=== PATIENT | male | born 1945 | race Caucasian/White ===

== ENCOUNTER 2020-08-04 11:38 | Emergency (ER) | payer MEDICARE, MEDICAID, SELFPAY ==
[2020-08-04] VITALS (7 sets, daily range): BP systolic 113–198; BP diastolic 58–88; PULSE 80–118; RESP 16–22; TEMP 36.4–37.3; O2SAT 95–99; BMI 29.7
--- NOTE | ~2020-08-04 | XR_ITS ---
EXAMINATION: XR CHEST CLINICAL INFORMATION: Infection COMPARISON: None TECHNIQUE: 2 views of the chest were obtained. FINDINGS: The lungs are hyperexpanded and clear of acute process. Heart size and pulmonary vascularity is normal. There is spondylosis dorsal spine. No lytic process. XR/XR chest 2V IMPRESSION: Hyperinflated lungs without acute process.
--- NOTE | 2020-08-04 12:21 | ECG_ITS ---
Test Reason : ABNORMAL LAB Blood Pressure : / mmHG Vent. Rate : 112 BPM Atrial Rate : 112 BPM P-R Int : 168 ms QRS Dur : 094 ms QT Int : 326 ms P-R-T Axes : 014 033 029 degrees QTc Int : 444 ms Sinus tachycardia with frequent Premature ventricular complexes Nonspecific ST abnormality Abnormal ECG No previous ECGs available Referred By: Rashida Chanel Electronically Signed By:BILL DUKES MD
--- NOTE | 2020-08-04 12:23 | ED.GENADULT ---
HPI - General Adult General Chief complaint: Dental/Oral Stated complaint: MOUTH SORES Time Seen by Provider: 08/04/20 11:52 Source: patient and family (Daughter Brandy translated) Mode of arrival: ambulatory Limitations: language barrier (Speaks Sierra Leonean) History of Present Illness HPI narrative: Patient is a 75-year-old [place] speaking male with a past medical history of diabetes, hypertension who presents with 2 days of multiple issues. First, his daughter states he has a rash on bilateral lower extremities, his nose is also been bleeding and he has black spots around his mouth, to use black spots on his tongue and on his mucosa, both sides. Patient denies being on a blood thinner and is a nonsmoker. Patient denies any new medications or new foods. Patient states the rash is not itchy or painful, he also denies pain or itchiness of the mouth sores. They do not scrape off. Patient denies fevers, chest pain or shortness of breath. Patient received his 2nd COVID vaccination 2 weeks ago. Related Data Home Medications Medication Instructions Recorded Confirmed amlodipine 1 tab PO DAILY 08/04/20 08/04/20 diclofenac sodium TOPICAL 08/04/20 gabapentin 1 cap PO BID 08/04/20 08/04/20 glipizide 5 mg PO DAILY 08/04/20 08/04/20 hydrochlorothiazide 1 cap PO DAILY 08/04/20 08/04/20 levothyroxine 1 tab PO DAILY 08/04/20 08/04/20 lisinopril 1 tab PO DAILY 08/04/20 08/04/20 metformin 2 tab PO BID 08/04/20 08/04/20 nitroglycerin mg SUBLINGUAL 08/04/20 pregabalin 50 mg PO BEDTIME 08/04/20 08/04/20 simvastatin 1 tab PO BEDTIME 08/04/20 08/04/20 Allergies Allergy/AdvReac Type Severity Reaction Status Date / Time No Known Allergies Allergy Verified 08/04/20 11:55 Review of Systems Review of Systems: Yes all other systems are reviewed and are negative [facility] Past Medical History Medical History (Updated 08/04/20 @ 12:50 by Juve Esteves) Atherosclerotic heart disease [place] coronary artery w/angina pectoris Diabetic neuropathy Hypercholesteremia Hypertension Hypothyroidism Insulin dependent diabetes mellitus Social History Social History Smoking Status: Never smoker Use of substances other than those prescribed or required for medical reasons: No Advance Directives: No Advance Directives Information Provided: Yes Physical Exam Vital Signs: Vital Signs: Last Vital Signs Temp 98.2 F 08/04/20 16:27 Pulse 103 H 08/04/20 16:27 Resp 18 08/04/20 16:27 BP 146/66 H 08/04/20 16:27 Pulse Ox 96 08/04/20 15:39 Body Mass Index 29.7 Const: General: cooperative, healthy appearing, comfortable and no acute distress Nutritional Appearance: average body habitus Orientation/consciousness: patient oriented x3 Limitations: language barrier (Speaks [place]) HENMT: Head: Yes normal to inspection, Yes No palpable skull fracture present, Yes normocephalic and Yes atraumatic Ears: hearing grossly normal bilaterally General nose exam: Normal external nose present, Normal nares present and Epistaxis present bilaterally dried blood present and active bleeding (only when he blows his nose, brb) Face and sinus: No normal facial exam (Patient has 5-6 black, flat areas periorbital) Mouth: Abnormal oral and palatal mucosa present hematoma (black-maroon circular areas) of the left buccal mucosa and of the right buccal mucosa Mouth/tongue images: 1. Black round spot, not actively bleeding 2. Black/red round spot, not actively bleeding Throat: Yes posterior oropharynx normal and Yes uvula midline Eyes: General: appearance normal, both eyes and all related structures Pupils: Equal, round and reactive pupils present EOM: EOMs intact bilaterally Resp: Effort & Inspection: normal respiratory effort and able to speak in complete sentences Auscultation: clear to auscultation bilaterally Cardio: Rate: tachycardic Rhythm: regular rhythm GI: Inspection: Yes normal to inspection Palpation (GI): Soft to palpation and nontender Neuro: General: patient oriented x3 Cranial nerves: Yes Equal, round and reactive pupils present Extrem: Other: Bilateral lower extremities petechial rash Course Course Course Narrative: Patient is a 75-year-old [place]an speaking male with a past medical history of diabetes, hypertension who presents with 2 days of multiple issues. First, his daughter states he has a rash on bilateral lower extremities, his nose is also been bleeding and he has black spots around his mouth, to use black spots on his tongue and on his mucosa, both sides. Vital signs reveal hypertensive at 198/88, tachycardic at 118BPM, respirations are 16, O2 sat is 99% on room air and temperature is 97.6 degrees. Physical exam remarkable for bilateral lower extremity petechia, epistaxis, several black/erythematous spots on periorbital area, tongue and oral mucosa. Had Dr. Motta examine patient, he agreed with the assessment and plan. Will get workup to rule out malignancy verses infection, DIC, vasculitis, multiple myeloma, leukemia and get EKG an COVID test as patient will likely be admitted. Reevaluation(s) Reevaluation #1: Patient's platelet count less than 2, will transfuse, explained to patient with his daughter risks and benefits of the platelet transfusion and patient signed for consent. Will also will redraw CBC for accuracy. Lactic acid 4.7, not giving antibiotics bc I don't believe this is sepsis. Time: 14:12 Reevaluation #2: Text to hospitalist to request admission and text to heme Onc for guidance. Time: 14:42 Reevaluation #3: Hospitalist will review, concern for continued bleeding of the nose, will patient need ENT, advised that patient is not actively bleeding, he has blood when he blows his nose. Spoke with Dr. Delacruz, she will add some labs to the patient's current blood work and come see patient in the ED. Time: 16:15 Additional Reevaluation(s): Dr. Vazquez advised patient is too high risk to keep in this hospital and he needs to go where they have any ENT service. As patient is a patient at [facility] for his primary care, I called [facility] for transfer. Spoke with Dr. Pollock at [facility], she will speak with her ?hub ?and call me back with likely okay to transfer. She did recommend giving the patient a dose of steroids but she said to check with Dr. Delacruz on the exact dosing. I texted Dr. Delacruz. 4:42pm Dr. Delacruz recommended 40 mg Decadron x5 days, will discontinue the Solu-Medrol, patient did not receive the Solu-Medrol yet. Medical Decision Making Lab Data Result diagrams: 08/04/20 14:17 08/04/20 13:15 Labs: Lab Results 0408/04/20 08/04/20 Range/Units 12:53 13:15 13:15 WBC 11.7 H (4.8-10.8) X10*3/uL RBC 3.91 L (4.60-5.80) X10*6/uL Hgb 12.8 L (14.0-18.0) g/dl Hct 37.1 L (42-52) % MCV 94.9 (80-98) fL MCH 32.7 (27.0-33.0) pg MCHC 34.5 (31.0-36.0) g/dl RDW 14.1 (11.0-16.0) % Plt Count < 2 L* (160-400) X10*3/uL MPV Not Reportable Immature Gran % (Auto) 0.7 H (0.0-0.4) % Neut % (Auto) 78.6 H (45-73) % Lymph % (Auto) 11.3 L (20-40) % Trigg % (Auto) 8.2 (2-11) % Eos % (Auto) 0.9 (0-4) % Baso % (Auto) 0.3 (0-2) % Lymph # (Auto) 1.3 (1.2-4.9) X10*3/uL Trigg # (Auto) 1.0 (0.1-1.2) X10*3/uL Eos # (Auto) 0.1 (0.0-0.4) X10*3/uL Baso # (Auto) 0.0 (0.0-0.2) X10*3/uL Abs Immat Gran (auto) 0.08 H (0.00-0.03) X10*3/uL Absolute Neuts (auto) 9.2 H (2.0-8.3) X10*3/uL Absolute Nucleated RBC 0.000 (0.0-0.012) X10*3/uL Nucleated RBC % (auto) 0.0 (0.0-0.2) /100WBC Neutrophils % (Manual) (45-73) % Band Neutrophils % (3-5) % Lymphocytes % (Manual) (20-40) % Monocytes % (Manual) (2-11) % Eosinophils % (Manual) (0-4) % Abs Neuts (Manual) (2.2-7.9) X10*3/uL Lymphocytes # (Manual) (0.6-4.8) X10*3/uL Monocytes # (Manual) (0.0-1.2) X10*3/uL Eosinophils # (Manual) (0.0-0.8) X10*3/UL Platelet Estimate Plt Morphology Comment RBC Morphology Smear Tech's Comments VERIFIED Smear Path Review SEE NOTE ESR 9 (0-15) MM/HR Absolute Retic (0.026-0.095) X10*6/uL Percent Retic (0.5-1.8) % Immature Retic Fraction (2.3-13.4) % Retic Hgb Equivalent (30.0-35.0) pg PT (10.8-13.0) SEC INR (0.9-1.1) APTT (24.1-38.0) SEC Fibrinogen (259-690) MG/DL D-Dimer NG/ML Sodium (135-145) mmol/L Potassium (3.3-5.1) mmol/L Chloride (96-108) mmol/L Carbon Dioxide (22-29) mmol/L Anion Gap (12-20) BUN (9-16) mg/dL Creatinine (0.5-1.4) mg/dL Estim Creat Clear Calc Estimated GFR Random Glucose (60-115) mg/dL Lactic Acid (0.5-2.0) mmol/L Lactic Acid Fup @ 2Hr (0.5-2.0) mmol/L Calcium (8.4-10.2) mg/dL Total Bilirubin (0.0-1.0) mg/dL AST (5-37) U/L ALT (0-40) U/L Alkaline Phosphatase (39-117) U/L Lactate Dehydrogenase (118-273) U/L C-Reactive Protein (< or = 0.50) mg/dL Total Protein (6.5-8.0) g/dL Albumin (3.5-5.0) g/dL Urine Color YELLOW Urine Appearance CLEAR Urine pH 5.5 (5.0-8.0) Ur Specific [place]rop 1.025 (1.005-1.025) Urine Protein NEG (NEG-TRACE) MG/DL Urine Glucose (UA) 500 H (NEG) MG/DL Urine Ketones NEG (NEG) MG/DL Urine Blood 3+ H (NEG) Urine Nitrite NEG (NEG) Ur Leukocyte Esterase NEG (NEG) Urine RBC 15-29 H (0) /HPF Urine WBC 0 (0-4) /HPF Ur Squamous Epith Cells TRACE /LPF Urine Bacteria NONE /LPF Urine Mucus TRACE /LPF COVID-19 (MELVIN) (Negative) COVID-19 Clin Com Blood Type Antibody Screen Direct Antiglob Test MARTIN, Polyspecific 08/04/20 08/04/20 08/04/20 Range/Units 13:15 13:15 13:15 WBC (4.8-10.8) X10*3/uL RBC (4.60-5.80) X10*6/uL Hgb (14.0-18.0) g/dl Hct (42-52) % MCV (80-98) fL MCH (27.0-33.0) pg MCHC (31.0-36.0) g/dl RDW (11.0-16.0) % Plt Count (160-400) X10*3/uL MPV Immature Gran % (Auto) (0.0-0.4) % Neut % (Auto) (45-73) % Lymph % (Auto) (20-40) % Trigg % (Auto) (2-11) % Eos % (Auto) (0-4) % Baso % (Auto) (0-2) % Lymph # (Auto) (1.2-4.9) X10*3/uL Trigg # (Auto) (0.1-1.2) X10*3/uL Eos # (Auto) (0.0-0.4) X10*3/uL Baso # (Auto) (0.0-0.2) X10*3/uL Abs Immat Gran (auto) (0.00-0.03) X10*3/uL Absolute Neuts (auto) (2.0-8.3) X10*3/uL Absolute Nucleated RBC (0.0-0.012) X10*3/uL Nucleated RBC % (auto) (0.0-0.2) /100WBC Neutrophils % (Manual) (45-73) % Band Neutrophils % (3-5) % Lymphocytes % (Manual) (20-40) % Monocytes % (Manual) (2-11) % Eosinophils % (Manual) (0-4) % Abs Neuts (Manual) (2.2-7.9) X10*3/uL Lymphocytes # (Manual) (0.6-4.8) X10*3/uL Monocytes # (Manual) (0.0-1.2) X10*3/uL Eosinophils # (Manual) (0.0-0.8) X10*3/UL Platelet Estimate Plt Morphology Comment RBC Morphology Smear Tech's Comments Smear Path Review ESR (0-15) MM/HR Absolute Retic (0.026-0.095) X10*6/uL Percent Retic (0.5-1.8) % Immature Retic Fraction (2.3-13.4) % Retic Hgb Equivalent (30.0-35.0) pg PT 13.3 H (10.8-13.0) SEC INR 1.1 (0.9-1.1) APTT 34.4 (24.1-38.0) SEC Fibrinogen 421 (259-690) MG/DL D-Dimer 214 NG/ML Sodium 137 (135-145) mmol/L Potassium 4.6 (3.3-5.1) mmol/L Chloride 102 (96-108) mmol/L Carbon Dioxide 21 L (22-29) mmol/L Anion Gap 19 (12-20) BUN 37 H (9-16) mg/dL Creatinine 1.06 (0.5-1.4) mg/dL Estim Creat Clear Calc 62.1 Estimated GFR > 60 Random Glucose 300 H (60-115) mg/dL Lactic Acid 4.7 H* (0.5-2.0) mmol/L Lactic Acid Fup @ 2Hr (0.5-2.0) mmol/L Calcium 10.3 H (8.4-10.2) mg/dL Total Bilirubin 1.1 H (0.0-1.0) mg/dL AST 35 (5-37) U/L ALT 41 H (0-40) U/L Alkaline Phosphatase 180 H (39-117) U/L Lactate Dehydrogenase 249 (118-273) U/L C-Reactive Protein 0.29 (< or = 0.50) mg/dL Total Protein 7.3 (6.5-8.0) g/dL Albumin 4.5 (3.5-5.0) g/dL Urine Color Urine Appearance Urine pH (5.0-8.0) Ur Specific [place]rop (1.005-1.025) Urine Protein (NEG-TRACE) MG/DL Urine Glucose (UA) (NEG) MG/DL Urine Ketones (NEG) MG/DL Urine Blood (NEG) Urine Nitrite (NEG) Ur Leukocyte Esterase (NEG) Urine RBC (0) /HPF Urine WBC (0-4) /HPF Ur Squamous Epith Cells /LPF Urine Bacteria /LPF Urine Mucus /LPF COVID-19 (MELVIN) (Negative) COVID-19 Clin Com Blood Type Antibody Screen Direct Antiglob Test MARTIN, Polyspecific 08/04/20 08/04/20 08/04/20 Range/Units 13:16 14:17 14:17 WBC 10.6 (4.8-10.8) X10*3/uL RBC 3.52 L (4.60-5.80) X10*6/uL Hgb 11.5 L (14.0-18.0) g/dl Hct 33.3 L (42-52) % MCV 94.6 (80-98) fL MCH 32.7 (27.0-33.0) pg MCHC 34.5 (31.0-36.0) g/dl RDW 14.1 (11.0-16.0) % Plt Count < 2 L* (160-400) X10*3/uL MPV Not Reportable Immature Gran % (Auto) (0.0-0.4) % Neut % (Auto) (45-73) % Lymph % (Auto) (20-40) % Trigg % (Auto) (2-11) % Eos % (Auto) (0-4) % Baso % (Auto) (0-2) % Lymph # (Auto) (1.2-4.9) X10*3/uL Trigg # (Auto) (0.1-1.2) X10*3/uL Eos # (Auto) (0.0-0.4) X10*3/uL Baso # (Auto) (0.0-0.2) X10*3/uL Abs Immat Gran (auto) (0.00-0.03) X10*3/uL Absolute Neuts (auto) (2.0-8.3) X10*3/uL Absolute Nucleated RBC 0.000 (0.0-0.012) X10*3/uL Nucleated RBC % (auto) 0.0 (0.0-0.2) /100WBC Neutrophils % (Manual) 67 (45-73) % Band Neutrophils % 2 L (3-5) % Lymphocytes % (Manual) 21 (20-40) % Monocytes % (Manual) 9 (2-11) % Eosinophils % (Manual) 1 (0-4) % Abs Neuts (Manual) 7.3 (2.2-7.9) X10*3/uL Lymphocytes # (Manual) 2.2 (0.6-4.8) X10*3/uL Monocytes # (Manual) 1.0 (0.0-1.2) X10*3/uL Eosinophils # (Manual) 0.1 (0.0-0.8) X10*3/UL Platelet Estimate TNP Plt Morphology Comment TNP RBC Morphology NORMAL Smear Tech's Comments Smear Path Review ESR (0-15) MM/HR Absolute Retic 0.123 H (0.026-0.095) X10*6/uL Percent Retic 3.5 H (0.5-1.8) % Immature Retic Fraction 11.0 (2.3-13.4) % Retic Hgb Equivalent 37.1 H (30.0-35.0) pg PT (10.8-13.0) SEC INR (0.9-1.1) APTT (24.1-38.0) SEC Fibrinogen (259-690) MG/DL D-Dimer NG/ML Sodium (135-145) mmol/L Potassium (3.3-5.1) mmol/L Chloride (96-108) mmol/L Carbon Dioxide (22-29) mmol/L Anion Gap (12-20) BUN (9-16) mg/dL Creatinine (0.5-1.4) mg/dL Estim Creat Clear Calc Estimated GFR Random Glucose (60-115) mg/dL Lactic Acid (0.5-2.0) mmol/L Lactic Acid Fup @ 2Hr (0.5-2.0) mmol/L Calcium (8.4-10.2) mg/dL Total Bilirubin (0.0-1.0) mg/dL AST (5-37) U/L ALT (0-40) U/L Alkaline Phosphatase (39-117) U/L Lactate Dehydrogenase (118-273) U/L C-Reactive Protein (< or = 0.50) mg/dL Total Protein (6.5-8.0) g/dL Albumin (3.5-5.0) g/dL Urine Color Urine Appearance Urine pH (5.0-8.0) Ur Specific Northrop (1.005-1.025) Urine Protein (NEG-TRACE) MG/DL Urine Glucose (UA) (NEG) MG/DL Urine Ketones (NEG) MG/DL Urine Blood (NEG) Urine Nitrite (NEG) Ur Leukocyte Esterase (NEG) Urine RBC (0) /HPF Urine WBC (0-4) /HPF Ur Squamous Epith Cells /LPF Urine Bacteria /LPF Urine Mucus /LPF COVID-19 (MELVIN) Negative (Negative) COVID-19 Clin Com See Note Blood Type O Negative Antibody Screen NEGATIVE Direct Antiglob Test TNP MARTIN, Polyspecific NEGATIVE 08/04/20 Range/Units 15:44 WBC (4.8-10.8) X10*3/uL RBC (4.60-5.80) X10*6/uL Hgb (14.0-18.0) g/dl Hct (42-52) % MCV (80-98) fL MCH (27.0-33.0) pg MCHC (31.0-36.0) g/dl RDW (11.0-16.0) % Plt Count (160-400) X10*3/uL MPV Immature Gran % (Auto) (0.0-0.4) % Neut % (Auto) (45-73) % Lymph % (Auto) (20-40) % Trigg % (Auto) (2-11) % Eos % (Auto) (0-4) % Baso % (Auto) (0-2) % Lymph # (Auto) (1.2-4.9) X10*3/uL Trigg # (Auto) (0.1-1.2) X10*3/uL Eos # (Auto) (0.0-0.4) X10*3/uL Baso # (Auto) (0.0-0.2) X10*3/uL Abs Immat Gran (auto) (0.00-0.03) X10*3/uL Absolute Neuts (auto) (2.0-8.3) X10*3/uL Absolute Nucleated RBC (0.0-0.012) X10*3/uL Nucleated RBC % (auto) (0.0-0.2) /100WBC Neutrophils % (Manual) (45-73) % Band Neutrophils % (3-5) % Lymphocytes % (Manual) (20-40) % Monocytes % (Manual) (2-11) % Eosinophils % (Manual) (0-4) % Abs Neuts (Manual) (2.2-7.9) X10*3/uL Lymphocytes # (Manual) (0.6-4.8) X10*3/uL Monocytes # (Manual) (0.0-1.2) X10*3/uL Eosinophils # (Manual) (0.0-0.8) X10*3/UL Platelet Estimate Plt Morphology Comment RBC Morphology Smear Tech's Comments Smear Path Review ESR (0-15) MM/HR Absolute Retic (0.026-0.095) X10*6/uL Percent Retic (0.5-1.8) % Immature Retic Fraction (2.3-13.4) % Retic Hgb Equivalent (30.0-35.0) pg PT (10.8-13.0) SEC INR (0.9-1.1) APTT (24.1-38.0) SEC Fibrinogen (259-690) MG/DL D-Dimer NG/ML Sodium (135-145) mmol/L Potassium (3.3-5.1) mmol/L Chloride (96-108) mmol/L Carbon Dioxide (22-29) mmol/L Anion Gap (12-20) BUN (9-16) mg/dL Creatinine (0.5-1.4) mg/dL Estim Creat Clear Calc Estimated GFR Random Glucose (60-115) mg/dL Lactic Acid (0.5-2.0) mmol/L Lactic Acid Fup @ 2Hr 3.7 H* (0.5-2.0) mmol/L Calcium (8.4-10.2) mg/dL Total Bilirubin (0.0-1.0) mg/dL AST (5-37) U/L ALT (0-40) U/L Alkaline Phosphatase (39-117) U/L Lactate Dehydrogenase (118-273) U/L C-Reactive Protein (< or = 0.50) mg/dL Total Protein (6.5-8.0) g/dL Albumin (3.5-5.0) g/dL Urine Color Urine Appearance Urine pH (5.0-8.0) Ur Specific Northrop (1.005-1.025) Urine Protein (NEG-TRACE) MG/DL Urine Glucose (UA) (NEG) MG/DL Urine Ketones (NEG) MG/DL Urine Blood (NEG) Urine Nitrite (NEG) Ur Leukocyte Esterase (NEG) Urine RBC (0) /HPF Urine WBC (0-4) /HPF Ur Squamous Epith Cells /LPF Urine Bacteria /LPF Urine Mucus /LPF COVID-19 (MELVIN) (Negative) COVID-19 Clin Com Blood Type Antibody Screen Direct Antiglob Test MARTIN, Polyspecific ECG Data Attestation: I personally reviewed and interpreted this ECG as follows: Interpretation: Trigeminy, PVCs and no STEMI, tachycardic at 112BPM Discharge Plan Discharge Prescriptions: No Action metformin 500 mg tablet 2 tab PO BID RF: 0 levothyroxine 75 mcg tablet 1 tab PO DAILY RF: 0 amlodipine 10 mg tablet 1 tab PO DAILY RF: 0 simvastatin 20 mg tablet 1 tab PO BEDTIME RF: 0 lisinopril 10 mg tablet 1 tab PO DAILY RF: 0 hydrochlorothiazide 12.5 mg capsule 1 cap PO DAILY RF: 0 nitroglycerin 0.4 mg tablet, sublingual sublingual RF: 0 gabapentin 100 mg capsule 1 cap PO BID RF: 0 glipizide 5 mg tablet 5 mg PO DAILY RF: 0 pregabalin 50 mg capsule 50 mg PO BEDTIME RF: 0 diclofenac sodium 1 % gel topical RF: 0
[2020-08-04 13:00] LABS: Glucose Urine UA 500 MG/DL (NEG); Leukocyte Esterase Urine NEG (NEG); Nitrite Urine NEG (NEG); PH 5.5 (5.0-8.0); Specific Gravity - Urine 1.025 (1.005-1.025); Urine Blood 3+ (NEG); Urine Ketones NEG (NEG); Urine Protein NEG (NEG-TRACE)
[2020-08-04 13:01] LABS: Appearance Urine CLEAR; Color Urine YELLOW
[2020-08-04 13:08] LABS: Mucus Urine TRACE /LPF; Squamous Epithelial Cell Urine TRACE /LPF; WBC Urine 0 /HPF (0-4)
[2020-08-04 13:29] LABS: Basophils Percent Auto 0.3 % (0-2); Eosinophils Absolute Auto 0.1 X10*3/uL (0.0-0.4); Eosinophils Percent Auto 0.9 % (0-4); MANUAL DIFF FLAG SCAN; Mean Corpuscular Hemoglobin 32.7 pg (27.0-33.0); Monocytes Percent Auto 8.2 % (2-11); Neutrophils Percent Auto 78.6 % (45-73); Red Cell Distribution Width 14.1 % (11.0-16.0); SCAN SMEAR FLAG 1
[2020-08-04 13:30] LABS: Fibrinogen 421 MG/DL (259-690); INTERNATIONAL NORM RATIO 1.1 (0.9-1.1); Prothrombin Time 13.3 SEC (10.8-13.0)
[2020-08-04 13:31] LABS: Hematocrit 37.1 % (42-52); Hemoglobin 12.8 g/dl (14.0-18.0); Imm Gran Abs Auto 0.08 X10*3/uL (0.00-0.03); Imm Gran Pct Auto 0.7 % (0.0-0.4); Lymphocytes Absolute Auto 1.3 X10*3/uL (1.2-4.9); Lymphocytes Percent Auto 11.3 % (20-40); Mean Corpuscular HGB Conc 34.5 g/dl (31.0-36.0); Mean Corpuscular Volume 94.9 fL (80-98); Neutrophils Absolute Auto 9.2 X10*3/uL (2.0-8.3); Red Blood Count 3.91 X10*6/uL (4.60-5.80); White Blood Count 11.7 X10*3/uL (4.8-10.8)
[2020-08-04 13:33] LABS: D Dimer 214 NG/ML; Partial Thromboplastin Time 34.4 SEC (24.1-38.0)
[2020-08-04 13:41] LABS: PLT ABN DIST 1
[2020-08-04 13:51] LABS: COVID-19 Test Negative (Negative); IDNOW Serial# 9DD0AD1C
[2020-08-04 13:56] LABS: Platelet Count < 2 X10*3/uL (160-400)
[2020-08-04 13:59] LABS: Lactic Acid 4.7 mmol/L (0.5-2.0)
[2020-08-04 14:00] LABS: Alanine Aminotransferase 41 U/L (0-40); Albumin Level 4.5 g/dL (3.5-5.0); Alkaline Phosphatase 180 U/L (39-117); Anion Gap 19 (12-20); Aspartate Amino Transferase 35 U/L (5-37); Bilirubin Total 1.1 mg/dL (0.0-1.0); Blood Urea Nitrogen 37 mg/dL (9-16); C Reactive Protein 0.29 mg/dL (< or = 0.50); Calcium 10.3 mg/dL (8.4-10.2); Carbon Dioxide 21 mmol/L (22-29); Chloride 102 mmol/L (96-108); Creatinine Clr Calc Pharmacy 62.1; Estimated Glomerular Filt Rate > 60; Glucose Random 300 mg/dL (60-115); Potassium 4.6 mmol/L (3.3-5.1); Sodium 137 mmol/L (135-145); Total Protein 7.3 g/dL (6.5-8.0)
[2020-08-04 14:13] LABS: SLIDE REVIEW VERIFIED
[2020-08-04 14:20] LABS: Erythrocyte Sedimentation Rate 9 MM/HR (0-15)
[2020-08-04 14:28] LABS: Eos%MD 0.9 %; Hemoglobin 11.5 g/dl (14.0-18.0); Mean Corpuscular Hemoglobin 32.7 pg (27.0-33.0); Red Blood Count 3.52 X10*6/uL (4.60-5.80); Red Cell Distribution Width 14.1 % (11.0-16.0)
[2020-08-04 14:30] LABS: Baso%MD 0.4 %; Hematocrit 33.3 % (42-52); IG%MD 0.8 %; Lymph%MD 16.4 %; Mean Corpuscular HGB Conc 34.5 g/dl (31.0-36.0); Mean Corpuscular Volume 94.6 fL (80-98); Mono%MD 9.6 %; Neut%MD 71.9 %; White Blood Count 10.6 X10*3/uL (4.8-10.8)
[2020-08-04 14:32] LABS: PLT ABN DIST 1
[2020-08-04 14:46] LABS: Platelet Count < 2 X10*3/uL (160-400)
--- NOTE | 2020-08-04 14:57 | MHC.HEMONCMA ---
Patient came in for a consult of anal cancer, she is in alot of pain. She is here with her daughter for support. Cherelle was here for interpretation. Clinical summary was reviewed and updated. Patient had labs and will return in 10 days for a follow up. Patient was scheduled for Radiation Consult at [facility] for 08/13/2020 at 10am. 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 Ericka is working on getting auth for PET scan for the patient. A note was left on Melanie's desk for her to follow up with scheduling for Dr Mackay and to check on the PET scan status.
[2020-08-04 15:12] LABS: Lactate Dehydrogenase 249 U/L (118-273)
[2020-08-04 15:13] LABS: Band Neutrophils Percent 2 % (3-5); Eosinophils Absolute Manual 0.1 X10*3/UL (0.0-0.8); Eosinophils Percent Manual 1 % (0-4); Lymphocytes Absolute Manual 2.2 X10*3/uL (0.6-4.8); Lymphocytes Percent Manual 21 % (20-40); Monocytes Percent Manual 9 % (2-11); Neutrophils Absolute Manual 7.3 X10*3/uL (2.2-7.9); Neutrophils Percent Manual 67 % (45-73)
[2020-08-04 15:14] LABS: RBC Morphology NORMAL
[2020-08-04 15:19] LABS: Retic HGB Equivalent 37.1 pg (30.0-35.0); Reticulocyte Percent 3.5 % (0.5-1.8); Reticulocytes Absolute 0.123 X10*6/uL (0.026-0.095)
[2020-08-04 15:21] LABS: Reflex Lactate? Lactic Acid Added
[2020-08-04 16:21] LABS: ~Lactic Acid-LAB USE ONLY 3.7 mmol/L (0.5-2.0)
[2020-08-04 17:45] LABS: Hemoglobin 10.3 g/dl (14.0-18.0); Imm Gran Pct Auto 0.7 % (0.0-0.4); Lymphocytes Absolute Auto 1.5 X10*3/uL (1.2-4.9); MANUAL DIFF FLAG SCAN; PLT CLUMP 1; SCAN SMEAR FLAG 1
[2020-08-04 17:47] LABS: Basophils Percent Auto 0.3 % (0-2); Eosinophils Absolute Auto 0.1 X10*3/uL (0.0-0.4); Eosinophils Percent Auto 0.7 % (0-4); Hematocrit 29.8 % (42-52); Imm Gran Abs Auto 0.08 X10*3/uL (0.00-0.03); Lymphocytes Percent Auto 13.6 % (20-40); Mean Corpuscular HGB Conc 34.6 g/dl (31.0-36.0); Mean Corpuscular Hemoglobin 32.5 pg (27.0-33.0); Mean Platelet Volume 10.6 fL (9.4-12.4); Monocytes Absolute Auto 1.1 X10*3/uL (0.1-1.2); Monocytes Percent Auto 10.6 % (2-11); Neutrophils Absolute Auto 7.9 X10*3/uL (2.0-8.3); Neutrophils Percent Auto 74.1 % (45-73); Red Blood Count 3.17 X10*6/uL (4.60-5.80); Red Cell Distribution Width 14.1 % (11.0-16.0); White Blood Count 10.7 X10*3/uL (4.8-10.8)
[2020-08-04 17:52] LABS: Platelet Count 2 X10*3/uL (160-400)
[2020-08-04] MEDS: dexAMETHasone 4 MG TABLET 40 MG PO (18:05)
[2020-08-04 18:09] LABS: Reflex Lactate? 2 Y
--- NOTE | 2020-08-04 18:18 | PC.NURSE ---
REPORT GIVEN TO RECEIVING HOSPITAL
[2020-08-05 15:07] LABS: Haptoglobin 25 mg/dL (43-212)
== END 2020-08-04 16:00 | disposition short-term general hospital (02) ==
PROVIDERS: Internal Medicine Medical Oncology; Physician Assistant; Emergency Provider Emergency Medicine Emergency Medical Services; PCP Internal Medicine
DX: D47.3 Essential (hemorrhagic) thrombocythemia (principal); R04.0 Epistaxis; R23.3 Spontaneous ecchymoses; K13.79 Other lesions of oral mucosa; R00.0 Tachycardia, unspecified; I10 Essential (primary) hypertension; Z20.822 Contact with and (suspected) exposure to COVID-19; E11.9 Type 2 diabetes mellitus without complications; E78.00 Pure hypercholesterolemia, unspecified; Z79.4 Long term (current) use of insulin; Z79.02 Long term (current) use of antithrombotics/antiplatelets; Z79.899 Other long term (current) drug therapy
CPT/HCPCS: 36415; 36430; 71046; 80053; 81001; 81003; 83010; 83605; 83615; 85007; 85025; 85027; 85045; 85060; 85379; 85384; 85610; 85652; 85730; 86140; 86850; 86880; 86900; 86901; 87040; 87635; 93005; 96374; 99285; J2930; J8540; P9035

== ENCOUNTER 2024-07-20 08:23 | Emergency (ER) | payer MEDICARE, MEDICAID, SELFPAY ==
[2024-07-20 08:25] VITALS: BP 64/37; BP 88/60; PULSE 100; PULSE 94; RESP 12; TEMP 36.9; O2SAT 100; BMI 23.4
--- NOTE | 2024-07-20 08:25 | ED_ITS ---
HPI - General Adult General Chief complaint: General Medical Stated complaint: LETHARGIC COUGHING Time Seen by Provider: 07/20/24 08:25 History of Present Illness ED Provider: Cinthya SALDANA narrative: The patient is an 79-year-old male with a history of chronic liver disease who lives at a local nursing facility. Apparently today he was coughing up what seemed to be bright red blood and seemed ill with low blood pressure. There is no report of any fever. The patient is denying any pain. The patient is quite weak and is unable to give any additional history. Related Data Home Medications ?Medication ?Instructions ?Recorded ?Confirmed amlodipine 10 mg tablet 1 tab PO DAILY 08/04/20 08/04/20 diclofenac sodium 1 % topical gel topical 08/04/20 gabapentin 100 mg capsule 1 cap PO BID 08/04/20 08/04/20 glipizide 5 mg tablet 5 mg PO DAILY 08/04/20 08/04/20 hydrochlorothiazide 12.5 mg capsule 1 cap PO DAILY 08/04/20 08/04/20 levothyroxine 75 mcg tablet 1 tab PO DAILY 08/04/20 08/04/20 lisinopril 10 mg tablet 1 tab PO DAILY 08/04/20 08/04/20 metformin 500 mg tablet 2 tab PO BID 08/04/20 08/04/20 nitroglycerin 0.4 mg sublingual mg sublingual 08/04/20 tablet pregabalin 50 mg capsule 50 mg PO BEDTIME 08/04/20 08/04/20 simvastatin 20 mg tablet 1 tab PO BEDTIME 08/04/20 08/04/20 Allergies Allergy/AdvReac Type Severity Reaction Status Date / Time No Known Allergies Allergy Verified 07/20/24 08:29 Review of Systems 2 Review of Systems: Yes Unobtainable due to mental condition [facility] Past Medical History Medical History (Updated 07/20/24 @ 09:33 by Jersey Mendes MD) Atherosclerotic heart disease [place] coronary artery w/angina pectoris Diabetic neuropathy Hypothyroidism Hypercholesteremia Insulin dependent diabetes mellitus Hypertension Social History Social History Advance Directives: Yes Advance Directives Information Provided: No Advance Directives on File: No Physical Exam ED Vital Signs: Vital Signs - 24 hr 07/20/24 08:25 07/20/24 08:50 07/20/24 08:58 Pulse Rate 94 104 H 99 Respiratory Rate 12 Blood Pressure 64/37 L 62/33 L 47/27 L Pulse Oximetry 100 Oxygen Delivery Method Nasal Cannula 07/20/24 09:02 Pulse Rate 91 Respiratory Rate Blood Pressure 40/19 L Pulse Oximetry Oxygen Delivery Method BMI result Body Mass Index 23.4 Const Other: The patient arrived awake but looking very ill. He was pale and very weak. HENMT Other: Face is symmetrical. Mucous membranes moist. There was some dried blood around his mouth. Eyes Other: Conjunctival pallor. Pupils are round equal, extraocular movements intact. Neck Neck: Yes no JVD Resp Other: Slight increased work of breathing. No definite crackles or wheezes. Cardio Rate: regular rate Rhythm: regular rhythm Heart sounds: S1 normal heart sound present and S2 normal heart sound present GI Other: The patient has a largely rounded and distended abdomen which did not seem markedly tender. There was a large area of ecchymotic skin changes across the left lower quadrant. Skin Other: The skin was very pallid. Dry. Neuro Other: The patient was awake but very drowsy. No obvious cranial nerve deficit. He was diffusely weak but without focal findings. Extrem Other: No peripheral edema. Medications Administered Generic Name Dose Route Start Last Admin Trade Name Freq PRN Reason Stop Dose Admin Albumin Human 100 mls @ 133.333 mls/hr 07/20/24 08:45 07/20/24 08:45 Kedbumin 25 % IV 07/20/24 10:29 133.33 mls/hr Q1H JYOTHI Administration Norepinephrine Bitartrate 8 mg in 250 mls @ 0 mls/hr 07/20/24 08:45 07/20/24 09:02 Levophed IVCONT 1 mcg/kg/min .Q0M JYOTHI 146.81 mls/hr Titration Protocol Per Protocol Procedures Central Line Placement Right Femoral: Time Out Performed: Yes Patient Placed on Monitor/Pulse Ox: Yes Prep: mask, gown and gloves Central Line Prep: Chlorhexidine scrub Local Anesthetic: lidocaine 1% Amount of anesthesia used (mL): 3 Ultrasound Used for Placement: Yes Central Line Lumen Inserted: triple Post Procedure: sutured in place, good blood return, all ports aspirated, flushed, capped and sterile dressing applied Patient Tolerated Procedure: well Complications: none Medical Decision Making Medical Decision Making [facility] Narrative: The patient is an 79-year-old male who presented from a nursing facility. We were told that he has a history of significant chronic liver disease and that he was either coughing or vomiting up blood today. Additionally it has been reported he was bradycardic and hypotensive in the pre-hospital setting. On arrival here he was not bradycardic but he was hypotensive. He looked very pallid. There was a MOLST form indicating that he was a full code with no restrictions on interventions. As we were settling the patient in he vomited a small amount of bright red blood. Seemed that this was likely a variceal bleed. Initially we ordered IV albumin, IV norepinephrine, an asked for emergency release of 2 units of packed red cells, and I placed a triple-lumen catheter in the patient's right femoral vein. However the patient's daughter arrived. I spoke to her about the patient has dire condition. The patient looked extremely ill. The patient at that point told me that the MOLST form I was referring to was not the most recent 1 and that at this point patient has been through a lot recently. Apparently he has had several hospitalizations in the last few months. The family has decided that at this point they do not want any aggressive interventions. After this discussion with the family the patient became significantly more bradycardic and developed agonal respirations. At that time I felt that additional attempts at resuscitation would likely be fruitless and contrary to the family's wishes and therefore we stopped efforts and the patient lost pulses soon after that. I declared him at 09:15 AM. Lab Data 07/20/24 08:48 07/20/24 08:52 Labs: Lab Results 07/20/24 07/20/24 Range/Units 08:41 08:48 WBC 19.8 H (4.8-10.8) X10*3/uL RBC 2.29 L D (4.60-5.80) X10*6/uL Hgb 7.0 L* D (14.0-18.0) g/dl Hct 22.1 L D (42.0-52.0) % MCV 96.5 D (80.0-98.0) fL MCH 30.6 (27.0-33.0) pg MCHC 31.7 (31.0-36.0) g/dl RDW 17.2 H (11.0-16.0) % Plt Count 80 L D (160-400) X10*3/uL MPV 11.6 (9.4-12.4) fL Immature Gran % (Auto) 1.6 H (0.0-0.4) % Neut % (Auto) 51.6 (45-73) % Lymph % (Auto) 33.3 (20-40) % [place] % (Auto) 11.4 H (2-11) % Eos % (Auto) 1.6 (0-4) % Baso % (Auto) 0.5 (0-2) % Lymph # (Auto) 6.6 H (1.2-4.9) X10*3/uL [place] # (Auto) 2.3 H (0.1-1.2) X10*3/uL Eos # (Auto) 0.3 (0.0-0.4) X10*3/uL Baso # (Auto) 0.1 (0.0-0.2) X10*3/uL Abs Immat Gran (auto) 0.31 H (0.00-0.03) X10*3/uL Absolute Neuts (auto) 10.2 H (2.0-8.3) x10*3/uL Absolute Nucleated RBC 0.000 (0.0-0.012) X10*3/uL Nucleated RBC % (auto) 0.0 (0.0-0.2) /100WBC POC Glucose 321 H (60-115) mg/dL Blood Type O Negative Antibody Screen NEGATIVE Crossmatch See Detail Discharge Plan Discharge Clinical Impression: Cardiac arrest Patient Disposition: Prescriptions: No Action metformin 500 mg tablet 2 tab PO BID levothyroxine 75 mcg tablet 1 tab PO DAILY amlodipine 10 mg tablet 1 tab PO DAILY simvastatin 20 mg tablet 1 tab PO BEDTIME lisinopril 10 mg tablet 1 tab PO DAILY hydrochlorothiazide 12.5 mg capsule 1 cap PO DAILY nitroglycerin 0.4 mg tablet, sublingual sublingual gabapentin 100 mg capsule 1 cap PO BID glipizide 5 mg tablet 5 mg PO DAILY pregabalin 50 mg capsule 50 mg PO BEDTIME diclofenac sodium 1 % gel topical Print Language: Unable To Collect
[2024-07-20 08:45] LABS: Glucose, Whole Blood 321 mg/dL (60-115)
[2024-07-20] MEDS: Albumin Human 25 % 100 ML 133.33 ML IV (08:45)
[2024-07-20 08:50] VITALS: BP 62/33; PULSE 104
[2024-07-20] MEDS: Norepinephrine Bitartrate/D5W 8 MG/250 ML PLAST..BAG 7.34 MG IVCONT (08:50)
[2024-07-20 08:58] VITALS: BP 47/27; PULSE 99
[2024-07-20 09:02] VITALS: BP 40/19; PULSE 91
--- OUTSIDE RECORDS SUMMARY | 2024-07-20 09:04 | XMS_ITS ---
Author Organization [address] Address [address] [place] [phone] Phone Care Team Providers Care Physician Coder Name Role Phone Michael Kumar MD Primary Care Provider Post Acute Care Coordination Status:Ongoing (Active) Start date:07/18/2024 Enrollment date:07/18/2024 Enrollment reason:Post acute care coordination Case Team Name Relationship Phone Manju Whitfield RN Post Acute Sales Representative Facility Services(R madonna Staff) Continued Care and Services Coordination
--- OUTSIDE RECORDS SUMMARY | 2024-07-20 09:04 | XMS_ITS | Clinical Summary ---
Author Organization [address] Address [address] [place] [phone] Phone Care Team Providers Care Advanced Practice Nurse Psychotherapist Name Role Phone Michael Kumar MD Primary Care Provider Allergies No known active allergies Medications gabapentin (NEURONTIN) 100 mg capsule Take 1 capsule (100 mg total) by mouth 2 (two) times a day. 023 Active BD Ultra-Fine Short Pen Needle 31 gauge x 5/16 needle Insulin injection, Subcutaneous twice a day 200 each 2 024 Active aspirin 81 mg EC tablet Take 1 tablet (81 mg total) by mouth 1 (one) time each day. 90 tablet 1 024 Active Synthroid 125 mcg tablet Take 1 tablet (125 mcg total) by mouth 1 (one) time each day. 90 each 1 025 Active midodrine (PROAMATINE) 10 mg tablet Take 1 tablet (10 mg total) by mouth 3 (three) times a day before meals. 90 tablet 025 Active omeprazole OTC (PriLOSEC OTC) 20 mg EC tablet Take 1 tablet (20 mg total) by mouth 1 (one) time each day. Do not crush, chew, or split. 90 tablet 1 Active sucralfate (Carafate) 1 gram tablet Take 1 tablet (1 g total) by mouth 3 (three) times a day with meals. 90 each Active folic acid (FOLVITE) 1 mg tablet TAKE 1 TABLET BY MOUTH EVERY DAY 90 tablet Active ondansetron (ZOFRAN) 4 mg tablet Take 1 tablet (4 mg total) by mouth every 12 (twelve) hours if needed for nausea or vomiting. 20 tablet 1 Active glucose blood test strip Use as instructed Blood sugar checks 2-4 times a day 200 each 3 Active insulin aspart (NovoLOG) 100 unit/mL injection Inject 2-14 Units under the skin 3 (three) times a day before meals. -Administer within 5 minutes of a meal. BG 100 mg/dl or less 0 units, 101-150= 2 units, 151-200=6 units, 201-250=8 units, 251-300=10 units, 301-350=12, 351-400=14 units 025 2025 Active rifAXIMin (XIFAXAN) 550 mg tabletIndications :Cirrhosis of liver with ascites, unspecified hepatic cirrhosis type (CMS/HCC V24, CMS/HCC V28),Hepatic encephalopathy (CMS/HCC V24, CMS/HCC V28) Take 1 tablet (550 mg total) by mouth 2 (two) times a day. 60 tablet Active insulin degludec (Tresiba FlexTouch U-200) 200 unit/mL (3 mL) CONCENTRATED injection pen Inject 20 Units under the skin at bedtime. Active lactulose (CHRONULAC) solution Take 30 mL (20 g total) by mouth 3 (three) times a day for 14 days. 1500 mL 2024 Active tamsulosin (FLOMAX) 0.4 mg 24 hr capsule Take 1 capsule (0.4 mg total) by mouth 1 (one) time each day. Capsules should be taken 30 minutes following the same meal each day. 30 each 025 2024 Active cefpodoxime (VANTIN) 200 mg tablet Take 1 tablet (200 mg total) by mouth 1 (one) time each day for 7 days. 7 each 025 2024 Active sodium bicarbonate 650 mg tablet Take 1 tablet (650 mg total) by mouth 2 (two) times a day. 025 2025 Active spironolactone (ALDACTONE) 25 mg tablet Take 1 tablet (25 mg total) by mouth 1 (one) time each day. 30 each 025 2024 Discontinued(S top Taking at Discharge) lactulose (CHRONULAC) solution Take 30 mL (20 g total) by mouth 1 (one) time each day. 900 mL 3 025 2024 Discontinued insulin degludec (Tresiba FlexTouch U-200) 200 unit/mL (3 mL) CONCENTRATED injection pen Inject 30-38 Units under the skin 2 (two) times a day. 15 mL 2 2024 Discontinued torsemide (DEMADEX) 20 mg tablet Take 1 tablet (20 mg total) by mouth 1 (one) time each day. 30 each 025 2024 Discontinued(S top Taking at Discharge) tamsulosin (FLOMAX) 0.4 mg 24 hr capsule Take 1 capsule (0.4 mg total) by mouth 1 (one) time each day. Capsules should be taken 30 minutes following the same meal each day. 30 each 025 2024 Discontinued amLODIPine (NORVASC) 10 mg tabletIndications :Essential (primary) hypertension,Pure hypercholesterole moni, unspecified TAKE 1 TABLET BY MOUTH EVERY DAY 90 tablet 1 025 2024 Discontinued(S top Taking at Discharge) amLODIPine (NORVASC) 10 mg tablet Take 1 tablet (10 mg total) by mouth 1 (one) time each day. 2024 Discontinued(D uplicate order) lactulose (CHRONULAC) solution Take 45 mL (30 g total) by mouth 3 (three) times a day for 14 days. 1500 mL 025 2024 Discontinued amoxicillin-clavu lanate (AUGMENTIN) 875-125 mg per tablet Take 1 tablet by mouth 2 (two) times a day for 7 days. 14 each 025 2024 Discontinued(S top Taking at Discharge) rifAXIMin (XIFAXAN) 200 mg tablet Take 1 tablet (200 mg total) by mouth 3 (three) times a day for 10 days. 30 tablet 025 2024 Discontinued(S top Taking at Discharge) insulin degludec (Tresiba FlexTouch U-200) 200 unit/mL (3 mL) CONCENTRATED injection pen Inject 30 Units under the skin at bedtime. 025 2024 Discontinued lactulose (CHRONULAC) solution Take 30 mL (20 g total) by mouth 3 (three) times a day for 14 days. 1500 mL 025 2024 Discontinued Active Problems Problem Noted Date Diagnosed Date Other ascites 07/15/2024 Acute metabolic acidosis 07/07/2024 Severe sepsis ([facility] V24, [facility] V28) Hyponatremia 06/10/2024 Orthostatic hypotension 05/06/2024 Gastroesophageal reflux disease without esophagi tis 05/06/2024 LJ (acute kidney injury) ([facility] V24) 04/28/19 Cirrhosis of liver with ascites ([facility] V24, [facility] V28) 04/17/2024 Acute renal failure ([facility] V24) 04/14/2024 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 03/02/2024 Assessment & Plan (03/03/2024 12:33 PM EST): Orders: CBC and differential; Future Basic metabolic panel; Future Thyroid stimulating hormone with reflex to free t4 and free t3; Future 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, with long-term current use of insulin ([facility] V24, [facility] V28) 03/02/2024 Assessment & Plan (03/03/2024 12:33 PM EST): Orders: CBC and differential; Future Basic metabolic panel; Future Thyroid stimulating hormone with reflex to free t4 and free t3; Future Hepatic cyst 03/02/2024 Assessment & Plan (03/03/2024 12:33 PM EST): Orders: CBC and differential; Future Basic metabolic panel; Future Thyroid stimulating hormone with reflex to free t4 and free t3; Future PAD (peripheral artery disease) ([facility]/HCC V24) Assessment & Plan (03/03/2024 12:33 PM EST): Orders: CBC and differential; Future Basic metabolic panel; Future Thyroid stimulating hormone with reflex to free t4 and free t3; Future Chronic anemia 08/22/2022 Assessment & Plan (03/03/2024 12:33 PM EST): Orders: Occult blood stool, immunoassay; Future CBC and differential; Future Basic metabolic panel; Future Thyroid stimulating hormone with reflex to free t4 and free t3; Future Peripheral polyneuropathy 04/18/2022 Acquired hypothyroidism 10/05/2020 Assessment & Plan (03/03/2024 12:33 PM EST): Orders: CBC and differential; Future Basic metabolic panel; Future Thyroid stimulating hormone with reflex to free t4 and free t3; Future Thrombocytopenia (CMS/HCC V24) 08/23/2020 Alcoholic cirrhosis of liver without ascites ([facility]/HCC V24, CMS/HCC V28) 08/15/2020 Liver lesion 08/15/2020 Splenomegaly 08/15/2020 Thrombocytopenia (CMS/HCC V24) 08/15/2020 Assessment & Plan (03/03/2024 12:33 PM EST): Orders: CBC and differential; Future Basic metabolic panel; Future Thyroid stimulating hormone with reflex to free t4 and free t3; Future Atherosclerosis of [place] ronary artery of [place] heart without angina pectoris 10/07/2019 Renal cyst 10/07/2019 Splenomegaly 06/11/2017 Chronic stable angina (CMS/HCC V24) 02/07/2017 Hyperlipidemia 10/29/2009 Essential hypertension, benign 07/06/2005 Assessment & Plan (03/03/2024 12:33 PM EST): Orders: CBC and differential; Future Basic metabolic panel; Future Thyroid stimulating hormone with reflex to free t4 and free t3; Future Encounters Date Type Department Care Team Description 07/14/2024 9:00 AM EDT - 07/17/2024 6:33 PM EDT Hospital Encounter [facility] Medical Surgical Unit [address] [place] [address] Edi Shipman, Chase Bruno MD Santoyo-Pacheco, Omar D, MD Other ascites (Primary Dx); Hyponatremia; Acute renal failure superimposed on chronic kidney disease, unspecified acute renal failure type, unspecified CKD stage (CMS/HCC V24) Discharge Disposition: [facility] Facility 07/07/2024 9:39 AM EDT - 07/10/2024 5:38 PM EDT Hospital Encounter [facility] Intermediate Care Unit [address] [place] [address] Angie Mora DO Bukalo, Nermina, MD Surendran, Anupama, MD Cirrhosis of liver with ascites, unspecified hepatic cirrhosis type (CMS/HCC V24, CMS/HCC V28) (Primary Dx); Acute kidney injury (CMS/HCC V24); Hyponatremia Discharge Disposition: [facility] Facility 06/30/2024 1:56 PM EDT - 07/02/2024 2:45 PM EDT Hospital Encounter [facility] Surgical Unit [address] [place] [phone] Martir Marques MD Santoyo-Pacheco, Omar D, MD Hyponatremia (Primary Dx); Lightheadedness; LJ (acute kidney injury) (CMS/HCC V24) Discharge Disposition: [facility] Facility 06/30/2024 11:15 AM EDT Telemedicine Adult Medicine [address] [phone] Michael Kumar MD Hospital discharge follow-up (Primary Dx); Cirrhosis of liver with ascites, unspecified hepatic cirrhosis type (CMS/HCC V24, CMS/HCC V28); Hyperammonemia (CMS/HCC V24); CKD stage 3 secondary to diabetes (CMS/HCC V24, CMS/HCC V28) 06/30/2024 9:30 AM EDT - 06/30/2024 11:59 PM EDT Hospital Encounter [facility] Ultrasound [address] [place] [address] Ascites of liver Discharge Disposition: Home or Self Care 06/23/2024 1:32 PM EDT - 06/24/2024 4:25 PM EDT Hospital Encounter [facility] Intermediate Care Unit [address] [place] [phone] Ivan Becerra MD Bukalo, Nermina, MD Ishtiaq, Rizwan, MD Kela, Kashyap Devendrabhai, MD Sepsis, due to unspecified organism, unspecified whether acute organ dysfunction present ([facility]/HCC V24, [facility] V28) (Primary Dx); Pneumonia due to infectious organism, unspecified laterality, unspecified part of lung; Cirrhosis of liver with ascites, unspecified hepatic cirrhosis type ([facility] V24, [facility] V28) Discharge Disposition: [facility] Facility 06/23/2024 Telephone Adult Medicine [address] [phone] Michael Kumar MD vna 06/20/2024 8:30 AM EDT - 06/20/2024 11:59 PM EDT Hospital Encounter [facility] Ultrasound [address] [place] [address] Ascites of liver Discharge Disposition: Home or Self Care 06/17/2024 Telephone Adult Medicine [address] [phone] Divya Lindsey MA VNA 06/16/2024 Telephone Adult Medicine [address] [phone] Michael Kumar MD vna 06/12/2024 10:37 AM EST - 06/15/2024 2:15 PM EDT Hospital Encounter [facility] Urology Unit [address] [place] [address] Castillo López, Dimas Arreola MD Kela, Kashyap Devendrabhai, MD Pneumonia in diseases classified elsewhere (Primary Dx); Hyponatremia; Cirrhosis of liver with ascites, unspecified hepatic cirrhosis type (CMS/HCC V24, CMS/HCC V28) Discharge Disposition: Home-Health Care [facility] 06/11/2024 3:35 PM EST Lab Draw Station - [address] Hyponatremia; Acute kidney injury superimposed on CKD (CMS/HCC V24); Cirrhosis of liver with ascites, unspecified hepatic cirrhosis type (CMS/HCC V24, CMS/HCC V28); Hyperammonemia (CMS/HCC V24); Orthostatic hypotension; Type 2 diabetes mellitus with diabetic microalbuminuria, with long-term current use of insulin (CMS/HCC V24, CMS/HCC V28); Chronic anemia; Thrombocytopenia (CMS/HCC V24); Acquired hypothyroidism 06/11/2024 2:45 PM EST Office Visit Adult Medicine [address] [phone] Michael Kumar MD Hyponatremia (Primary Dx); Acute kidney injury superimposed on CKD (CMS/HCC V24); Cirrhosis of liver with ascites, unspecified hepatic cirrhosis type (CMS/HCC V24, CMS/HCC V28); Hyperammonemia (CMS/HCC V24); Orthostatic hypotension; Type 2 diabetes mellitus with diabetic microalbuminuria, with long-term current use of insulin (CMS/HCC V24, CMS/HCC V28); Chronic anemia; Thrombocytopenia (CMS/HCC V24); Acquired hypothyroidism 06/08/2024 Telephone Gastroenterology - [place] [address] [facility] [address] [facility] [address] [place] [address] Marissa Roberts PA 06/05/2024 11:46 AM EST - 06/05/2024 11:59 PM EST Hospital Encounter [facility] Ultrasound [address] [place] [address] Liver cirrhosis secondary to [place] (CMS/HCC V24, CMS/HCC V28); Other ascites Discharge Disposition: Home or Self Care 06/05/2024 11:30 AM EST Lab Draw Station - [address] [facility] [address] [place] [address] Liver cirrhosis secondary to [place] (CMS/HCC V24, CMS/HCC V28) 06/01/2024 Telephone Gastroenterology - [place] [address] [phone] Marissa Roberts PA 05/29/2024 11:45 AM EST - 05/29/2024 11:59 PM EST Hospital Encounter [facility] Ultrasound [address] [place] [address] Cirrhosis (CMS/HCC V24, CMS/HCC V28) Discharge Disposition: Home or Self Care 05/28/2024 7:45 AM EST - 05/28/2024 11:59 PM EST Hospital Encounter [facility] MRI [address] [place] [address] Liver cirrhosis secondary to [place] (CMS/HCC V24, CMS/HCC V28) Discharge Disposition: Home or Self Care 05/27/2024 Telephone Gastroenterology - [place] [address] [facility] [address] [phone] Marissa Roberts PA PROVIDER CALL BACK 05/20/2024 8:29 AM EST - 05/20/2024 11:59 PM EST Hospital Encounter [facility] Ultrasound [address] [place] [address] Liver cirrhosis secondary to [place] (CMS/HCC V24, CMS/HCC V28); Other ascites Discharge Disposition: Home or Self Care 05/12/2024 10:20 AM EST Consult Gastroenterology - [place] [address] [phone] Marissa Roberts PA Liver cirrhosis secondary to [place] (CMS/HCC V24, CMS/HCC V28) (Primary Dx); Other ascites 05/09/2024 Telephone Gastroenterology [facility] [address] [phone] Beckie Wheat MA 05/06/2024 1:00 PM EST Office Visit [address] [phone] Michael Kumar MD Hospital discharge follow-up (Primary Dx); Acute kidney injury superimposed on CKD ([facility] V24); Acute urinary retention; Cirrhosis of liver with ascites, unspecified hepatic cirrhosis type ([facility] V24, [facility] V28); Orthostatic hypotension; Essential hypertension, benign; Gastroesophageal reflux disease without esophagitis; Type 2 diabetes mellitus with diabetic microalbuminuria, with long-term current use of insulin ([facility] V24, [facility] V28); Chronic anemia; PAD (peripheral artery disease) ([facility] V24); Acquired hypothyroidism 05/05/2024 Telephone Adult Medicine [address] [phone] Michael Kumar MD Hospital Follow-up (Pt was in 04/28/24- 05/01/24 kidney function issues. Pt was seen at [facility]. Pt granddaughter is calling to have him see PCP since he has come out of the hospital she states pt has been feeling very sick and throwing up pt is unable to really eat or drink. Best phone number to call back is [phone]) 04/28/2024 1:45 PM EST - 05/01/2024 6:18 PM EST Hospital Encounter [facility] Medical Surgical Unit [address] [place] [phone] Angie Mora DO Bukalo, Nermina, MD Surendran, Anupama, MD LJ (acute kidney injury) ([facility] V24) (Primary Dx) Discharge Disposition: Home or Self Care 04/28/2024 Telephone Adult Medicine [address] [phone] Michael Kumar MD patient was down in the lab getting blood drawn and stated h 04/21/2024 Telephone Adult Medicine [address] [phone] Michael Kumar MD Medication Problem from Last 3 Months Immunizations Name Administration Dates Next Due Influenza Quadravalent, 0.5m l (Fluad) 65yo and older 01/20/2021 Influenza Quadravalent, 0.5m l (Fluzone High-dose) 65yo and older 01/02/2023,01/11/2022 Influenza trivalent, 0.5mL ( Fluzone High-dose) 65yo and older 01/02/2023,01/11/2022,12/13/2019,01/21 Influenza trivalent, with pr eservative (Fluzone; Afluria) 6mo and older 01/22/2019,02/09/2015,02/16/2014,02/03,03/20/2011,04/06/2010 Influenza, Unspecified 12/08/2020,01/21/2017 Pneumococcal conjugate 13 va lent (Prevnar 13, PCV13) 2mo and older 02/10/2016 Pneumococcal polysaccharide 23 valent (Pneumovax 23) 2yo and older 09/23/2009 Td Tetanus diptheria (Tdvax) 7yo and older 09/09/2021 Tdap Tetanus diptheria acell ular pertussis (Boostrix; Adacel) 7yo and older 09/23/2009 Surgical History Surgery Date Site/Laterality Comments OTHER SURGICAL HISTORY PROCEDURE: DENIES PREVIOUS SURGERY Medical History Medical History Date Comments Essential hypertension, benign 07/06/2005 D X:Essential hypertension, benign Diabetes ([facility] V24, [facility] V28) DX:Diabetes (HCC) History of tobacco abuse 2002 DX:Hist ory of tobacco abuse; COMMENT: 70 pk years Thrombocytopenia ([facility] V24) D X:Thrombocytopenia (HCC) Pulmonary nodule 10/2016 DX:Pulmonary no dule; COMMENT: on LDCT repeat in 3 mo Thoracic aneurysm without me ntion of rupture 10/2016 DX:Thoracic aneurysm without mention of rupture; COMMENT: sm. 4 cm noted on LDCT Splenomegaly DX:Splenomegaly; COMMENT: on ldct Microscopic hematuria DX:Microsc opic hematuria Simple cyst of kidney DX:Simple cyst of kidney Cirrhosis ([facility] V24, [facility] V28) DX:Cirrhosis (HCC) Gastroesophageal reflux dise ase without esophagitis 05/06/2024 Family History Medical History Relation Name Comments Other: health history unknown Father Other: health history unknown Mother Relation Name Status Comments Father Mother Social History Tobacco Use Types Packs/Day Years Used Date Smoking Tobacco: Former Smokeless Tobacco: Never Tobacco Cessation:Counseling Given: Not Answered Alcohol Use Standard Drinks/Week Comments No 0 (1 standard drink = 0.6 oz pur e alcohol) Housing Instability Answer Date Recorde d Are you worried that in the next 2 months you may not have stable housing? No 07/15/2024 Food Access & Nutrition Answer Date Rec orded Do you have access to a vari ety of food including fruits and vegetables? Yes 07/15/2024 Access to Healthcare Answer Date Record ed Within the last 3 months, ho w many times did you visit the emergency department for your medical care? 6 07/15/2024 Health Literacy Answer Date Recorded How often do you need to hav e someone help you when you read instructions, pamphlets, or other written material from your doctor or pharmacy? Sometimes 07/15/2024 Caregiver: How often do you need to have someone help you when you read instructions, pamphlets, or other written material from your doctor or pharmacy? Not on file 07/15/2024 Financial Risk Answer Date Recorded How hard is it for you to pa y for the very basics like food, housing, medical care, and air conditioning / heating? Somewhat hard 07/15/2024 Transportation Answer Date Recorded Has the lack of transportati on kept you from meetings, work, or from getting things needed for daily living? No Has the lack of transportati on kept you from medical appointments or from getting medications? No 07/15/2024 Social Isolation Answer Date Recorded How often do you feel lonely or isolated from th ose around you? Never 07/15/2024 Food Risk Answer Date Recorded Within the past 12 months we worried whether our food would run out before we got money to buy more. Never true 07/15/2024 Within the past 12 months th e food we bought just didn't last and we didn't have money to get more. Never true 07/15/2024 Dependent Care Answer Date Recorded Do you need help finding or paying for care for your loved ones. For example, child protective investigator or elderly care for an older adult? No 07/15/2024 Education Answer Date Recorded Do you think completing more education or training, like finishing a GED, going to college, or learning a trade, would be helpful for you? Patient declined 07/15/2024 Employment and Income Answer Date Recor ded During the last four weeks, have you been actively looking for work? No 07/15/2024 Living Situation Answer Date Recorded What is your living situation? 0 07/15/2024 Interpersonal Safety Answer Date Record ed Physical Abuse 07/15/2024 Verbal Abuse 07/15/2024 Sex and Gender Information Value Date Recorded Sex Assigned at Male 05/16/2024 9:36 AM EST Legal Sex Male 7:20 AM EST Gender Identity Male 05/16/2024 9:36 AM EST Sexual Orientation Straight 05/16/2024 9: 36 AM EST Obstetrics History Last Filed Vital Signs Vital Sign Reading Time Taken Comments Blood Pressure 109/58 07/17/2024 4:56 PM EDT Pulse 87 07/17/2024 4:56 PM EDT Temperature 36.3 ??C (97.4 ??F) 07/17/2024 4:56 PM ED T Respiratory Rate 17 07/17/2024 4:56 PM EDT Oxygen Saturation 92% 07/17/2024 4:56 PM EDT Inhaled Oxygen Concentration - - Weight 73.5 kg (162 lb 0.6 oz) 07/17/2024 1:38 P M EDT Height 172.7 cm (5' 7.99 ) 07/17/2024 1:38 PM ED T Body Mass Index 24.64 07/17/2024 1:38 PM EDT Plan of Treatment Upcoming Encounters Date Type Department Care Team (Late st Contact Info) Description 07/21/2024 10:30 AM EDT Appointment [facility] Ultrasound [address] [place] [phone] 08/18/2024 10:30 AM EDT Office Visit Gastroenterology - [place] [address] [facility] [address] [facility] [address] [place] [phone] Marissa Roberts PA [address] [address] 09/08/2024 9:30 AM EDT Office Visit [facility] Hematology Oncology [address] [place] [phone] Stevenson Carson MD [address] [place] [address] Health Maintenance Due Date Last Done Comments Hepatitis A Vaccines (1 of 2 - Risk 2-dose series) 1963 Zoster Vaccines (1 of 2) 1994 Hepatitis B Vaccines (1 of 3 - Risk 3-dose series) 2004 RSV Immunization Adult Patients (1 - 1-dose 75+ series) 2019 COVID-19 Vaccine (3 - Moderna risk series) 08/15/2020 07/18/2020, 06/20/2020 Diabetes: Annual Foot Exam 12/27/2023 12/26/2022 Diabetes: Annual Retina Eye Exam 01/10/2024 01/09/2023 Diabetes: Blood Sugar Control Test (HGBA1C) 08/12/2024 02/13/2024, 10/15/2023, 10/15/2023, Additional history exists Depression Screening 03/03/2025 03/03/2024, 12/26/2022, 12/26/2022 Medicare Annual Wellness Visit 03/03/2025 03/03/2024 Diabetes: Annual Urine Albumin-Creatinine Ratio (uACR) 06/05/2025 06/05/2024, 06/05/2024, 05/09/2024, Additional history exists Social Influencers of Health Screening 07/15/2025 07/15/2024 Diabetes: Annual GFR (Glomerular Filtration Rate) 07/17/2025 07/17/2024, 07/16/2024, 07/15/2024, Additional history exists Falls Risk Assessment 07/17/2025 07/17/2024 , 03/03/2024, 12/26/2022, Additional history exists Hypertension/CHF/CAD Annual BMP Blood Test 07/17/2025 07/17/2024, 07/16/2024, 07/15/2024, Additional history exists Cholesterol Screening (Lipid Panel) 10/14/2028 10/15/2023, 10/15/2023, 12/19/2022 DTaP,Tdap,and Td Vaccines (3 - Td or Tdap) 09/10/2031 09/09/2021, 09/23/2009 Pneumococcal Vaccine: 50+ Years Completed 02/10/2016, 09/23/2009 Influenza Vaccine Completed 01/30/2024, , 01/02/2023, Additional history exists HIB Vaccines Aged Out No longer eligi ble based on patient's age to complete this topic HPV Vaccines Aged Out No longer eligi ble based on patient's age to complete this topic IPV Vaccines Aged Out No longer eligi ble based on patient's age to complete this topic MMR Vaccines Aged Out No longer eligi ble based on patient's age to complete this topic Meningococcal ACWY Vaccine Aged Out N o longer eligible based on patient's age to complete this topic Meningococcal B Vaccine Aged Out No l onger eligible based on patient's age to complete this topic RSV Immunization Patients Under 20 months Aged Out No longer eligible based on patient's age to complete this topic Varicella Vaccines Aged Out No longer eligible based on patient's age to complete this topic Procedures Procedure Name Priority Date/Time Associated Diagnosis Comments POCT GLUCOSE BLOOD Routine 07/17/2024 3: 48 PM EDT POCT GLUCOSE BLOOD Routine 07/17/2024 11:19 AM EDT POCT GLUCOSE BLOOD Routine 07/17/2024 8: 09 AM EDT CBC WITH AUTO DIFFERENTIAL Routine 07/17/2024 5:38 AM EDT PHOSPHORUS Routine 07/17/2024 5:38 AM EDT MAGNESIUM Routine 07/17/2024 5:38 AM EDT CBC AND DIFFERENTIAL Routine 07/17/2024 5:38 AM EDT BASIC METABOLIC PANEL Routine 07/17/2024 5:38 AM EDT POCT GLUCOSE BLOOD Routine 07/16/2024 7: 57 PM EDT MUNOZ URINE CULTURE TUBE Routine 07/16/2024 7:01 PM EDT URINALYSIS WITH REFLEX MICROSCOPIC AND CULTURE Routine 07/16/2024 7:01 PM EDT URINALYSIS WITH REFLEX MICROSCOPIC AND CULTURE Routine 07/16/2024 7:01 PM EDT CULTURE URINE Routine 07/16/2024 7:01 PM EDT POCT GLUCOSE BLOOD Routine 07/16/2024 4: 06 PM EDT POCT GLUCOSE BLOOD Routine 07/16/2024 11:12 AM EDT POCT GLUCOSE BLOOD Routine 07/16/2024 7: 48 AM EDT CBC WITH AUTO DIFFERENTIAL Routine 07/16/2024 5:30 AM EDT MAGNESIUM Routine 07/16/2024 5:30 AM EDT CBC AND DIFFERENTIAL Routine 07/16/2024 5:30 AM EDT BASIC METABOLIC PANEL Routine 07/16/2024 5:30 AM EDT POCT GLUCOSE BLOOD Routine 07/15/2024 8: 45 PM EDT SODIUM Routine 07/15/2024 6:20 PM EDT POCT GLUCOSE BLOOD Routine 07/15/2024 3: 20 PM EDT POCT GLUCOSE BLOOD Routine 07/15/2024 11:21 AM EDT POCT GLUCOSE BLOOD Routine 07/15/2024 7: 40 AM EDT OSMOLALITY STAT Add-on 07/15/2024 4:34 AM EDT CBC WITH AUTO DIFFERENTIAL Routine 07/15/2024 4:34 AM EDT COMPREHENSIVE METABOLIC PANEL Routine 07/15/2024 4:34 AM EDT CBC AND DIFFERENTIAL Routine 07/15/2024 4:34 AM EDT RESPIRATORY VIRUS PANEL MOLECULAR STUDY Routine 07/15/2024 2:01 AM EDT ECG ANNOTATED 07/15/2024 POCT GLUCOSE BLOOD Routine 07/14/2024 9: 01 PM EDT POCT GLUCOSE BLOOD Routine 07/14/2024 7: 21 PM EDT POCT GLUCOSE BLOOD Routine 07/14/2024 4: 27 PM EDT XR CHEST 1 VIEW STAT 07/14/2024 3:01 PM EDT US PARACENTESIS W IMAGE GUIDANCE STAT 07/14/2024 12:05 PM EDT ECG 12-LEAD STAT 07/14/2024 10:18 AM EDT PROTHROMBIN TIME WITH INR STAT Add-on 07/14/2024 9:17 AM EDT CBC WITH AUTO DIFFERENTIAL STAT 07/14/2024 9:17 AM EDT AMMONIA STAT 07/14/2024 9:17 AM EDT ACTIVATED PARTIAL THROMBOPLASTIN TIME STAT 07/14/2024 9:17 AM EDT COMPREHENSIVE METABOLIC PANEL STAT 07/14/2024 9:17 AM EDT CBC AND DIFFERENTIAL STAT 07/14/2024 9:17 AM EDT POCT GLUCOSE BLOOD Routine 07/10/2024 3: 37 PM EDT US PARACENTESIS W IMAGE GUIDANCE Routine 07/10/2024 12:59 PM EDT POCT GLUCOSE BLOOD Routine 07/10/2024 11:49 AM EDT POCT GLUCOSE BLOOD Routine 07/10/2024 8: 00 AM EDT CBC WITH AUTO DIFFERENTIAL Routine 07/10/2024 6:51 AM EDT CBC AND DIFFERENTIAL Routine 07/10/2024 6:51 AM EDT BASIC METABOLIC PANEL Routine 07/10/2024 6:51 AM EDT ECG ANNOTATED 07/10/2024 POCT GLUCOSE BLOOD Routine 07/09/2024 7: 42 PM EDT POCT GLUCOSE BLOOD Routine 07/09/2024 3: 19 PM EDT POCT GLUCOSE BLOOD Routine 07/09/2024 11:53 AM EDT XR CHEST 2 VIEWS Routine 07/09/2024 9:53 AM EDT POCT GLUCOSE BLOOD Routine 07/09/2024 7: 41 AM EDT CBC WITH AUTO DIFFERENTIAL Routine 07/09/2024 6:20 AM EDT CBC AND DIFFERENTIAL Routine 07/09/2024 6:20 AM EDT BASIC METABOLIC PANEL Routine 07/09/2024 6:20 AM EDT POCT GLUCOSE BLOOD Routine 07/08/2024 10:38 PM EDT POCT GLUCOSE BLOOD Routine 07/08/2024 3: 37 PM EDT POCT GLUCOSE BLOOD Routine 07/08/2024 11:45 AM EDT TRANSTHORACIC ECHOCARDIOGRAM (TTE) COMPLETE W/ CONTRAST Routine 07/08/2024 10:31 AM EDT Cirrhosis of liver with ascites, unspecified hepatic cirrhosis type (CMS/HCC V24, CMS/HCC V28) POCT GLUCOSE BLOOD Routine 07/08/2024 8: 29 AM EDT C-REACTIVE PROTEIN Add-On 07/08/2024 6: 31 AM EDT PROCALCITONIN STAT Add-on 07/08/2024 6:31 AM EDT SST - GOLD Routine 07/08/2024 6:31 AM EDT EXTRA TUBES Routine 07/08/2024 6:31 AM EDT TROPONIN I HIGH SENSITIVITY Routine 07/08/2024 6:31 AM EDT COMPREHENSIVE METABOLIC PANEL Routine 07/08/2024 6:31 AM EDT COMPLETE BLOOD COUNT Routine 07/08/2024 6:31 AM EDT POCT GLUCOSE BLOOD Routine 07/08/2024 12:08 AM EDT TROPONIN I HIGH SENSITIVITY STAT 07/07/2024 8:49 PM EDT LACTATE STAT 07/07/2024 8:49 PM EDT RESPIRATORY VIRUS PANEL MOLECULAR STUDY Routine 07/07/2024 6:54 PM EDT MRSA PCR Routine 07/07/2024 6:54 PM EDT ECG 12-LEAD STAT 07/07/2024 6:50 PM EDT MUNOZ URINE CULTURE TUBE STAT 07/07/2024 2:04 PM EDT URINALYSIS WITH REFLEX MICROSCOPIC AND CULTURE STAT 07/07/2024 2:04 PM EDT URINALYSIS WITH REFLEX MICROSCOPIC AND CULTURE STAT 07/07/2024 2:04 PM EDT CULTURE URINE STAT 07/07/2024 2:04 PM EDT DIFFERENTIAL BODY FLUID STAT 07/07/2024 12:52 PM EDT GLUCOSE, BODY FLUID STAT 07/07/2024 12:52 PM EDT CELL COUNT WITH REFLEX DIFFERENTIAL, BODY FLUID STAT 07/07/2024 12:52 PM EDT CULTURE BODY FLUID WITH GRAM STAIN STAT 07/07/2024 12:52 PM EDT US PARACENTESIS W IMAGE GUIDANCE STAT 07/07/2024 12:51 PM EDT XR CHEST 1 VIEW STAT 07/07/2024 11:14 AM EDT B-TYPE NATRIURETIC PEPTIDE STAT 07/07/2024 10:50 AM EDT TROPONIN I HIGH SENSITIVITY STAT 07/07/2024 10:50 AM EDT AMMONIA STAT 07/07/2024 10:50 AM EDT LACTATE STAT 07/07/2024 10:50 AM EDT PROTHROMBIN TIME WITH INR STAT 07/07/2024 10:50 AM EDT PATHOLOGIST REVIEW BLOOD SMEAR Routine 07/07/2024 10:21 AM EDT CREATINE KINASE AND CKMB Add-On 07/07/2024 10:21 AM EDT MAGNESIUM Add-On 07/07/2024 10:21 AM EDT CBC WITH AUTO DIFFERENTIAL STAT 07/07/2024 10:21 AM EDT LIPASE STAT 07/07/2024 10:21 AM EDT COMPREHENSIVE METABOLIC PANEL STAT 07/07/2024 10:21 AM EDT CBC AND DIFFERENTIAL STAT 07/07/2024 10:21 AM EDT ECG ANNOTATED 07/03/2024 POCT GLUCOSE BLOOD Routine 07/02/2024 11:13 AM EDT POCT GLUCOSE BLOOD Routine 07/02/2024 8: 29 AM EDT POCT GLUCOSE BLOOD Routine 07/02/2024 8: 02 AM EDT CBC WITH AUTO DIFFERENTIAL Routine 07/02/2024 5:18 AM EDT CBC AND DIFFERENTIAL Routine 07/02/2024 5:18 AM EDT URIC ACID Add-On 07/02/2024 5:17 AM EDT MAGNESIUM Routine 07/02/2024 5:17 AM EDT BASIC METABOLIC PANEL Routine 07/02/2024 5:17 AM EDT YELLOW URINE NO ADDITIVE Routine 07/02/2024 12:43 AM EDT EXTRA TUBES Routine 07/02/2024 12:43 AM EDT OSMOLALITY, URINE Routine 07/02/2024 12:43 AM EDT SODIUM, URINE, RANDOM Routine 07/02/2024 12:43 AM EDT POCT GLUCOSE BLOOD Routine 07/01/2024 8: 27 PM EDT SODIUM Routine 07/01/2024 6:27 PM EDT POCT GLUCOSE BLOOD Routine 07/01/2024 3: 41 PM EDT POCT GLUCOSE BLOOD Routine 07/01/2024 11:46 AM EDT POCT GLUCOSE BLOOD Routine 07/01/2024 9: 26 AM EDT CBC WITH AUTO DIFFERENTIAL Routine 07/01/2024 5:07 AM EDT PROCALCITONIN Routine 07/01/2024 5:07 AM EDT COMPREHENSIVE METABOLIC PANEL Routine 07/01/2024 5:07 AM EDT CBC AND DIFFERENTIAL Routine 07/01/2024 5:07 AM EDT CLOSTRIDIUM DIFFICILE TOXIN Routine 07/01/2024 2:44 AM EDT GASTROINTESTINAL PATHOGENS BY PCR Routine 07/01/2024 2:44 AM EDT BASIC METABOLIC PANEL Routine 07/01/2024 12:47 AM EDT MUNOZ URINE CULTURE TUBE Routine 06/30/2024 10:31 PM EDT URINALYSIS WITH REFLEX MICROSCOPIC AND CULTURE Routine 06/30/2024 10:31 PM EDT URINALYSIS WITH REFLEX MICROSCOPIC AND CULTURE Routine 06/30/2024 10:31 PM EDT TROPONIN I HIGH SENSITIVITY STAT 06/30/2024 4:01 PM EDT XR CHEST 1 VIEW STAT 06/30/2024 3:55 PM EDT POCT GLUCOSE BLOOD Routine 06/30/2024 3: 53 PM EDT TROPONIN I HIGH SENSITIVITY STAT 06/30/2024 2:28 PM EDT CBC WITH AUTO DIFFERENTIAL STAT 06/30/2024 2:28 PM EDT MAGNESIUM STAT 06/30/2024 2:28 PM EDT BASIC METABOLIC PANEL STAT 06/30/2024 2:28 PM EDT CBC AND DIFFERENTIAL STAT 06/30/2024 2:28 PM EDT ECG 12-LEAD STAT 06/30/2024 2:17 PM EDT US PARACENTESIS W IMAGE GUIDANCE Routine 06/30/2024 11:01 AM EDT Ascites of liver ECG ANNOTATED 06/25/2024 POCT GLUCOSE BLOOD Routine 06/24/2024 11:49 AM EDT POCT GLUCOSE BLOOD Routine 06/24/2024 8: 44 AM EDT POCT GLUCOSE BLOOD Routine 06/24/2024 7: 56 AM EDT COMPLETE BLOOD COUNT Routine 06/24/2024 5:43 AM EDT BASIC METABOLIC PANEL Routine 06/24/2024 5:43 AM EDT POCT GLUCOSE BLOOD Routine 06/23/2024 8: 40 PM EDT MUNOZ URINE CULTURE TUBE STAT 06/23/2024 7:39 PM EDT URINALYSIS WITH REFLEX MICROSCOPIC AND CULTURE STAT 06/23/2024 7:39 PM EDT URINALYSIS WITH REFLEX MICROSCOPIC AND CULTURE STAT 06/23/2024 7:39 PM EDT PROTHROMBIN TIME WITH INR STAT 06/23/2024 6:23 PM EDT LACTATE, WITH REFLEX Timed 06/23/2024 6:23 PM EDT TROPONIN I HIGH SENSITIVITY STAT 06/23/2024 6:[address] CHEST WO CONTRAST STAT 06/23/2024 5:[address] HEAD WO CONTRAST STAT 06/23/2024 5 :[address] ABDOMEN PELVIS WO CONTRAST STAT 06/23/2024 5:43 PM EDT DIFFERENTIAL BODY FLUID STAT 06/23/2024 5:23 PM EDT CELL COUNT WITH REFLEX DIFFERENTIAL, BODY FLUID STAT 06/23/2024 5:23 PM EDT CULTURE BODY FLUID WITH GRAM STAIN STAT 06/23/2024 5:23 PM EDT US PARACENTESIS W IMAGE GUIDANCE STAT 06/23/2024 5:22 PM EDT BASIC METABOLIC PANEL STAT 06/23/2024 3:16 PM EDT POCT GLUCOSE BLOOD Routine 06/23/2024 2: 30 PM EDT XR CHEST 1 VIEW STAT 06/23/2024 2:27 PM EDT [id number], RSV, FLU A AND B QUALITATIVE RT-PCR, INTERNAL LAB STAT 06/23/2024 2:17 PM EDT CULTURE BLOOD STAT 06/23/2024 2:09 PM EDT MANUAL DIFFERENTIAL - SYSMEX WAM STAT 06/23/2024 2:06 PM EDT LACTATE, WITH REFLEX STAT 06/23/2024 2:06 PM EDT CBC WITH AUTO DIFFERENTIAL STAT 06/23/2024 2:06 PM EDT AMMONIA STAT 06/23/2024 2:06 PM EDT TROPONIN I HIGH SENSITIVITY STAT 06/23/2024 2:06 PM EDT MAGNESIUM STAT 06/23/2024 2:06 PM EDT BASIC METABOLIC PANEL STAT 06/23/2024 2:06 PM EDT CBC AND DIFFERENTIAL STAT 06/23/2024 2:06 PM EDT CULTURE BLOOD STAT 06/23/2024 2:06 PM EDT ECG 12-LEAD STAT 06/23/2024 1:44 PM EDT US PARACENTESIS W IMAGE GUIDANCE Routine 06/20/2024 9:52 AM EDT Ascites of liver POCT GLUCOSE BLOOD Routine 06/15/2024 11:17 AM EDT POCT GLUCOSE BLOOD Routine 06/15/2024 8: 03 AM EDT MAGNESIUM Routine 06/15/2024 7:10 AM EDT BASIC METABOLIC PANEL Routine 06/15/2024 7:10 AM EDT COMPLETE BLOOD COUNT Routine 06/15/2024 7:10 AM EDT PHOSPHORUS Routine 06/15/2024 7:10 AM EDT POCT GLUCOSE BLOOD Routine 06/14/2024 8: 56 PM EST POCT GLUCOSE BLOOD Routine 06/14/2024 4: 24 PM EST POCT GLUCOSE BLOOD Routine 06/14/2024 11:14 AM EST POCT GLUCOSE BLOOD Routine 06/14/2024 7: 43 AM EST MAGNESIUM Routine 06/14/2024 5:56 AM EST BASIC METABOLIC PANEL Routine 06/14/2024 5:56 AM EST COMPLETE BLOOD COUNT Routine 06/14/2024 5:56 AM EST PHOSPHORUS Routine 06/14/2024 5:56 AM EST POCT GLUCOSE BLOOD Routine 06/13/2024 8: 02 PM EST POCT GLUCOSE BLOOD Routine 06/13/2024 4: 14 PM EST TIGER TOP URINE TUBE Routine 06/13/2024 12:36 PM EST EXTRA TUBES Routine 06/13/2024 12:36 PM EST SODIUM, URINE, RANDOM Routine 06/13/2024 12:27 PM EST POCT GLUCOSE BLOOD Routine 06/13/2024 12:08 PM EST NON-GYNECOLOGIC CYTOLOGY Routine 06/13/2024 11:37 AM EST DIFFERENTIAL BODY FLUID Routine 06/13/2024 11:37 AM EST CELL COUNT WITH REFLEX DIFFERENTIAL, BODY FLUID Routine 06/13/2024 11:37 AM EST PROTEIN, BODY FLUID Routine 06/13/2024 11:37 AM EST GLUCOSE, BODY FLUID Routine 06/13/2024 11:37 AM EST ALBUMIN, BODY FLUID Routine 06/13/2024 11:37 AM EST CULTURE BODY FLUID WITH GRAM STAIN Routine 06/13/2024 11:37 AM EST US PARACENTESIS W IMAGE GUIDANCE Routine 06/13/2024 11:35 AM EST POCT GLUCOSE BLOOD Routine 06/13/2024 7: 37 AM EST OSMOLALITY Routine 06/13/2024 6:52 AM EST CBC WITH AUTO DIFFERENTIAL Routine 06/13/2024 6:52 AM EST CBC AND DIFFERENTIAL Routine 06/13/2024 6:52 AM EST MAGNESIUM Routine 06/13/2024 6:52 AM EST BASIC METABOLIC PANEL Routine 06/13/2024 6:52 AM EST POCT GLUCOSE BLOOD Routine 06/13/2024 1: 55 AM EST LACTATE Routine 06/12/2024 11:59 PM EST ELECTROLYTE PANEL Timed 06/12/2024 11:59 PM EST POCT GLUCOSE BLOOD Routine 06/12/2024 9: 53 PM EST ELECTROLYTE PANEL Timed 06/12/2024 6:1 1 PM EST URINALYSIS WITH REFLEX MICROSCOPIC Routine 06/12/2024 6:05 PM EST URINALYSIS WITH REFLEX MICROSCOPIC Routine 06/12/2024 6:05 PM EST SODIUM, URINE, RANDOM Routine 06/12/2024 6:05 PM EST OSMOLALITY, URINE Routine 06/12/2024 6:0 5 PM EST URINALYSIS WITH REFLEX MICROSCOPIC STAT 06/12/2024 12:31 PM EST URINALYSIS WITH REFLEX MICROSCOPIC STAT 06/12/2024 12:31 PM EST RESPIRATORY VIRUS PANEL MOLECULAR STUDY STAT 06/12/2024 12:26 PM EST LACTATE STAT 06/12/2024 12:25 PM EST CULTURE BLOOD STAT 06/12/2024 12:25 PM EST CULTURE BLOOD STAT 06/12/2024 12:25 PM EST XR CHEST 2 VIEWS STAT 06/12/2024 12:19 PM EST ECG 12-LEAD STAT 06/12/2024 11:17 AM EST C-REACTIVE PROTEIN Add-On 06/12/2024 9: 50 AM EST PROCALCITONIN Add-On 06/12/2024 9:50 AM EST CORTISOL Add-On 06/12/2024 9:50 AM EST URIC ACID Add-On 06/12/2024 9:50 AM EST OSMOLALITY Add-On 06/12/2024 9:50 AM EST CBC WITH AUTO DIFFERENTIAL STAT 06/12/2024 9:50 AM EST MAGNESIUM STAT 06/12/2024 9:50 AM EST BASIC METABOLIC PANEL STAT 06/12/2024 9:50 AM EST CBC AND DIFFERENTIAL STAT 06/12/2024 9:50 AM EST COMPREHENSIVE METABOLIC PANEL Routine 06/11/2024 3:42 PM EST Hyponatremia Acute kidney injury superimposed on CKD (CMS/HCC V24) Cirrhosis of liver with ascites, unspecified hepatic cirrhosis type (CMS/HCC V24, CMS/HCC V28) Hyperammonemia (CMS/HCC V24) Orthostatic hypotension Type 2 diabetes mellitus with diabetic microalbuminuria, with long-term current use of insulin (CMS/HCC V24, CMS/HCC V28) Chronic anemia Thrombocytopenia (CMS/HCC V24) Acquired hypothyroidism MAGNESIUM Routine 06/11/2024 3:42 PM EST Hyponatremia Acute kidney injury superimposed on CKD (CMS/HCC V24) Cirrhosis of liver with ascites, unspecified hepatic cirrhosis type (CMS/HCC V24, CMS/HCC V28) Hyperammonemia (CMS/HCC V24) Orthostatic hypotension Type 2 diabetes mellitus with diabetic microalbuminuria, with long-term current use of insulin (CMS/HCC V24, CMS/HCC V28) Chronic anemia Thrombocytopenia (CMS/HCC V24) Acquired hypothyroidism US PARACENTESIS W IMAGE GUIDANCE Routine 06/05/2024 12:58 PM EST Liver cirrhosis secondary to GOODRICH (CMS/HCC V24, CMS/HCC V28) Other ascites ALPHA FETOPROTEIN TUMOR MARKER Routine 06/05/2024 11:43 AM EST Liver cirrhosis secondary to GOODRICH (CMS/HCC V24, CMS/HCC V28) GAMMA GLUTAMYL TRANSFERASE Routine 06/05/2024 11:43 AM EST Liver cirrhosis secondary to GOODRIHC (CMS/HCC V24, CMS/HCC V28) AMMONIA Routine 06/05/2024 11:43 AM EST Liver cirrhosis secondary to GOODRICH (CMS/HCC V24, CMS/HCC V28) WI IMMUNOFIXATION ELECTROPHORESIS SERUM Routine 06/05/2024 10:49 AM EST Chronic kidney disease, stage IV (severe) (CMS/HCC V24, CMS/HCC V28) Hospital discharge follow-up Acute kidney injury superimposed on CKD (CMS/HCC V24) Acute urinary retention Cirrhosis of liver with ascites, unspecified hepatic cirrhosis type (CMS/HCC V24, CMS/HCC V28) Essential hypertension, benign Type 2 diabetes mellitus with diabetic microalbuminuria, with long-term current use of insulin (CMS/HCC V24, CMS/HCC V28) Chronic anemia IMMUNOGLOBULINS IGG, IGA, IGM Routine 06/05/2024 10:49 AM EST Chronic kidney disease, stage IV (severe) (CMS/HCC V24, CMS/HCC V28) Acute renal failure with pathological lesion in kidney (CMS/HCC V24) CBC WITH AUTO DIFFERENTIAL Routine 06/05/2024 10:49 AM EST Chronic kidney disease, stage IV (severe) (CMS/HCC V24, CMS/HCC V28) Acute renal failure with pathological lesion in kidney (CMS/HCC V24) URINALYSIS MICROSCOPIC ONLY Routine 06/05/2024 10:49 AM EST Chronic kidney disease, stage IV (severe) (CMS/HCC V24, CMS/HCC V28) Acute renal failure with pathological lesion in kidney (CMS/HCC V24) CBC AND DIFFERENTIAL Routine 06/05/2024 10:49 AM EST Chronic kidney disease, stage IV (severe) (CMS/HCC V24, CMS/HCC V28) Acute renal failure with pathological lesion in kidney (CMS/HCC V24) BASIC METABOLIC PANEL Routine 06/05/2024 10:49 AM EST Chronic kidney disease, stage IV (severe) (CMS/HCC V24, CMS/HCC V28) Acute renal failure with pathological lesion in kidney (CMS/HCC V24) URINALYSIS MICROSCOPIC ONLY Routine 06/05/2024 10:49 AM EST Chronic kidney disease, stage IV (severe) (CMS/HCC V24, CMS/HCC V28) Acute renal failure with pathological lesion in kidney (CMS/HCC V24) PROTEIN AND CREATININE WITH RATIO, URINE Routine 06/05/2024 10:49 AM EST Chronic kidney disease, stage IV (severe) (CMS/HCC V24, CMS/HCC V28) Acute renal failure with pathological lesion in kidney (CMS/HCC V24) MICROALBUMIN CREATININE URINE RATIO Routine 06/05/2024 10:49 AM EST Chronic kidney disease, stage IV (severe) (CMS/HCC V24, CMS/HCC V28) Acute renal failure with pathological lesion in kidney (CMS/HCC V24) IMMUNOFIXATION ELECTROPHORESIS Routine 06/05/2024 10:49 AM EST Chronic kidney disease, stage IV (severe) (CMS/HCC V24, CMS/HCC V28) Hospital discharge follow-up Acute kidney injury superimposed on CKD (CMS/HCC V24) Acute urinary retention Cirrhosis of liver with ascites, unspecified hepatic cirrhosis type (CMS/HCC V24, CMS/HCC V28) Essential hypertension, benign Type 2 diabetes mellitus with diabetic microalbuminuria, with long-term current use of insulin (CMS/HCC V24, CMS/HCC V28) Chronic anemia US PARACENTESIS W IMAGE GUIDANCE Routine 05/29/2024 1:09 PM EST Cirrhosis (CMS/HCC V24, CMS/HCC V28) MR ABDOMEN WO CONTRAST Routine 9:31 AM EST Liver cirrhosis secondary to GOODRICH (CMS/HCC V24, CMS/HCC V28) US PARACENTESIS W IMAGE GUIDANCE Routine 05/20/2024 10:08 AM EST Liver cirrhosis secondary to GOODRICH (CMS/HCC V24, CMS/HCC V28) Other ascites WI IMMUNOFIXATION ELECTROPHORESIS SERUM Routine 05/09/2024 10:25 AM EST Chronic kidney disease, stage IV (severe) (CMS/HCC V24, CMS/HCC V28) IMMUNOGLOBULINS IGG, IGA, IGM Routine 05/09/2024 10:25 AM EST Chronic kidney disease, stage IV (severe) (CMS/HCC V24, CMS/HCC V28) Hospital discharge follow-up Acute kidney injury superimposed on CKD (CMS/HCC V24) Acute urinary retention Cirrhosis of liver with ascites, unspecified hepatic cirrhosis type (CMS/HCC V24, CMS/HCC V28) Essential hypertension, benign Type 2 diabetes mellitus with diabetic microalbuminuria, with long-term current use of insulin (CMS/HCC V24, CMS/HCC V28) Chronic anemia IMMUNOFIXATION ELECTROPHORESIS Routine 05/09/2024 10:25 AM EST Chronic kidney disease, stage IV (severe) (CMS/HCC V24, CMS/HCC V28) Hospital discharge follow-up Acute kidney injury superimposed on CKD (CMS/HCC V24) Acute urinary retention Cirrhosis of liver with ascites, unspecified hepatic cirrhosis type (CMS/HCC V24, CMS/HCC V28) Essential hypertension, benign Type 2 diabetes mellitus with diabetic microalbuminuria, with long-term current use of insulin (CMS/HCC V24, CMS/HCC V28) Chronic anemia CBC WITH AUTO DIFFERENTIAL Routine 05/09/2024 10:25 AM EST Chronic kidney disease, stage IV (severe) (CMS/HCC V24, CMS/HCC V28) URINALYSIS MICROSCOPIC ONLY Routine 05/09/2024 10:25 AM EST Chronic kidney disease, stage IV (severe) (CMS/HCC V24, CMS/HCC V28) COMPREHENSIVE METABOLIC PANEL Routine 05/09/2024 10:25 AM EST Hospital discharge follow-up Acute kidney injury superimposed on CKD (CMS/HCC V24) Acute urinary retention Cirrhosis of liver with ascites, unspecified hepatic cirrhosis type (CMS/HCC V24, CMS/HCC V28) Essential hypertension, benign Type 2 diabetes mellitus with diabetic microalbuminuria, with long-term current use of insulin (CMS/HCC V24, CMS/HCC V28) Chronic anemia CBC AND DIFFERENTIAL Routine 05/09/2024 10:25 AM EST Chronic kidney disease, stage IV (severe) (CMS/HCC V24, CMS/HCC V28) URINALYSIS MICROSCOPIC ONLY Routine 05/09/2024 10:25 AM EST Chronic kidney disease, stage IV (severe) (CMS/HCC V24, CMS/HCC V28) PROTEIN AND CREATININE WITH RATIO, URINE Routine 05/09/2024 10:25 AM EST Chronic kidney disease, stage IV (severe) (CMS/HCC V24, CMS/HCC V28) MICROALBUMIN CREATININE URINE RATIO Routine 05/09/2024 10:25 AM EST Chronic kidney disease, stage IV (severe) (CMS/HCC V24, CMS/HCC V28) VITAMIN D 25 HYDROXY Routine 05/09/2024 10:25 AM EST Chronic kidney disease, stage IV (severe) (CMS/HCC V24, CMS/HCC V28) PARATHYROID HORMONE INTACT Routine 05/09/2024 10:25 AM EST Chronic kidney disease, stage IV (severe) (CMS/HCC V24, CMS/HCC V28) MAGNESIUM Routine 05/09/2024 10:25 AM EST Chronic kidney disease, stage IV (severe) (CMS/HCC V24, CMS/HCC V28) PHOSPHORUS Routine 05/09/2024 10:25 AM EST Chronic kidney disease, stage IV (severe) (CMS/HCC V24, CMS/HCC V28) CREATININE, URINE, RANDOM Routine 05/09/2024 10:25 AM EST Chronic kidney disease, stage IV (severe) (CMS/HCC V24, CMS/HCC V28) SODIUM, URINE, RANDOM Routine 05/09/2024 10:25 AM EST Chronic kidney disease, stage IV (severe) (CMS/HCC V24, CMS/HCC V28) UREA NITROGEN, URINE Routine 05/09/2024 10:25 AM EST Chronic kidney disease, stage IV (severe) (CMS/HCC V24, CMS/HCC V28) KAPPA-LAMBDA QUANTITATIVE FREE LIGHT CHAINS Routine 05/09/2024 10:25 AM EST Chronic kidney disease, stage IV (severe) (CMS/HCC V24, CMS/HCC V28) IMMUNOFIXATION ELECTROPHORESIS Routine 05/09/2024 10:25 AM EST Chronic kidney disease, stage IV (severe) (CMS/HCC V24, CMS/HCC V28) POCT GLUCOSE BLOOD Routine 05/01/2024 3: 49 PM EST POCT GLUCOSE BLOOD Routine 05/01/2024 11:19 AM EST POCT GLUCOSE BLOOD Routine 05/01/2024 8: 24 AM EST CBC WITH AUTO DIFFERENTIAL Routine 05/01/2024 6:45 AM EST MAGNESIUM Routine 05/01/2024 6:45 AM EST BASIC METABOLIC PANEL Routine 05/01/2024 6:45 AM EST CBC AND DIFFERENTIAL Routine 05/01/2024 6:45 AM EST POCT GLUCOSE BLOOD Routine 04/30/2024 8: 20 PM EST POCT GLUCOSE BLOOD Routine 04/30/2024 4: 27 PM EST POCT GLUCOSE BLOOD Routine 04/30/2024 11:20 AM EST POCT GLUCOSE BLOOD Routine 04/30/2024 8: 07 AM EST CBC WITH AUTO DIFFERENTIAL Routine 04/30/2024 6:36 AM EST BASIC METABOLIC PANEL Routine 04/30/2024 6:36 AM EST CBC AND DIFFERENTIAL Routine 04/30/2024 6:36 AM EST POCT GLUCOSE BLOOD Routine 04/29/2024 8: 20 PM EST POCT GLUCOSE BLOOD Routine 04/29/2024 3: 57 PM EST US PARACENTESIS W IMAGE GUIDANCE Routine 04/29/2024 1:42 PM EST TIGER TOP URINE TUBE Routine 04/29/2024 1:30 PM EST EXTRA TUBES Routine 04/29/2024 1:30 PM EST SODIUM, URINE, RANDOM Routine 04/29/2024 1:24 PM EST POCT GLUCOSE BLOOD Routine 04/29/2024 10:59 AM EST POCT GLUCOSE BLOOD Routine 04/29/2024 8: 23 AM EST VITAMIN B12 AND FOLATE Add-On 6:36 AM EST FERRITIN Add-On 04/29/2024 6:36 AM EST IRON AND TIBC Add-On 04/29/2024 6:36 AM EST COMPLETE BLOOD COUNT Routine 04/29/2024 6:36 AM EST BASIC METABOLIC PANEL Routine 04/29/2024 6:36 AM EST POCT GLUCOSE BLOOD Routine 04/28/2024 9: 27 PM EST POCT GLUCOSE BLOOD Routine 04/28/2024 5: 21 PM EST XR CHEST 1 VIEW STAT 04/28/2024 2:55 PM EST MUNOZ URINE CULTURE TUBE STAT 04/28/2024 2:33 PM EST URINALYSIS WITH REFLEX MICROSCOPIC AND CULTURE STAT 04/28/2024 2:33 PM EST URINALYSIS WITH REFLEX MICROSCOPIC AND CULTURE STAT 04/28/2024 2:33 PM EST LACTATE STAT 04/28/2024 1:56 PM EST URIC ACID Add-On 04/28/2024 8:46 AM EST TRIIODOTHYRONINE FREE Routine 04/28/2024 8:46 AM EST Type 2 diabetes mellitus with diabetic microalbuminuria, with long-term current use of insulin ([facility] V24, [facility] V28) PAD (peripheral artery disease) ([facility] V24) 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 Essential hypertension, benign Acquired hypothyroidism Thrombocytopenia ([facility]/HCC V24) Chronic anemia Hepatic cyst Encounter for subsequent annual wellness visit (AWV) in Medicare patient FREE THYROXINE WITH REFLEX TO FREE TRIIODOTHYRONINE Routine 04/28/2024 8:46 AM EST Type 2 diabetes mellitus with diabetic microalbuminuria, with long-term current use of insulin (CMS/HCC V24, CMS/HCC V28) PAD (peripheral artery disease) (CMS/HCC V24) 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 Essential hypertension, benign Acquired hypothyroidism Thrombocytopenia (CMS/HCC V24) Chronic anemia Hepatic cyst Encounter for subsequent annual wellness visit (AWV) in Medicare patient CBC WITH AUTO DIFFERENTIAL Routine 04/28/2024 8:46 AM EST Type 2 diabetes mellitus with diabetic microalbuminuria, with long-term current use of insulin (CMS/HCC V24, CMS/HCC V28) PAD (peripheral artery disease) (CMS/HCC V24) 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 Essential hypertension, benign Acquired hypothyroidism Thrombocytopenia (CMS/HCC V24) Chronic anemia Hepatic cyst Encounter for subsequent annual wellness visit (AWV) in Medicare patient HEPATIC FUNCTION PANEL Routine 8:46 AM EST Cirrhosis of liver with ascites, unspecified hepatic cirrhosis type (CMS/HCC V24, CMS/HCC V28) MAGNESIUM Routine 04/28/2024 8:46 AM EST Cirrhosis of liver with ascites, unspecified hepatic cirrhosis type (CMS/HCC V24, CMS/HCC V28) S/P abdominal paracentesis 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 Acute kidney injury superimposed on CKD (CMS/HCC V24) Essential hypertension, benign Type 2 diabetes mellitus with diabetic microalbuminuria, with long-term current use of insulin (CMS/HCC V24, CMS/HCC V28) Thrombocytopenia (CMS/HCC V24) Chronic anemia Acquired hypothyroidism PAD (peripheral artery disease) (CMS/HCC V24) HEPATITIS PANEL, ACUTE WITH REFLEX TO CONFIRMATION Routine 04/28/2024 8:46 AM EST Cirrhosis of liver with ascites, unspecified hepatic cirrhosis type (CMS/HCC V24, CMS/HCC V28) S/P abdominal paracentesis 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 Acute kidney injury superimposed on CKD (CMS/HCC V24) Essential hypertension, benign Type 2 diabetes mellitus with diabetic microalbuminuria, with long-term current use of insulin ([facility] V24, [facility] V28) Thrombocytopenia ([facility] V24) Chronic anemia Acquired hypothyroidism PAD (peripheral artery disease) ([facility] V24) PROSTATE SPECIFIC ANTIGEN SCREEN Routine 04/28/2024 8:46 AM EST Screening for prostate cancer THYROID STIMULATING HORMONE WITH REFLEX TO FREE T4 AND FREE T3 Routine 04/28/2024 8:46 AM EST Type 2 diabetes mellitus with diabetic microalbuminuria, with long-term current use of insulin ([facility] V24, [facility] V28) PAD (peripheral artery disease) ([facility] V24) 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 Essential hypertension, benign Acquired hypothyroidism Thrombocytopenia ([facility] V24) Chronic anemia Hepatic cyst Encounter for subsequent annual wellness visit (AWV) in Medicare patient BASIC METABOLIC PANEL Routine 04/28/2024 8:46 AM EST Type 2 diabetes mellitus with diabetic microalbuminuria, with long-term current use of insulin ([facility] V24, [facility] V28) PAD (peripheral artery disease) ([facility] V24) 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 Essential hypertension, benign Acquired hypothyroidism Thrombocytopenia ([facility] V24) Chronic anemia Hepatic cyst Encounter for subsequent annual wellness visit (AWV) in Medicare patient CBC AND DIFFERENTIAL Routine 04/28/2024 8:46 AM EST Type 2 diabetes mellitus with diabetic microalbuminuria, with long-term current use of insulin ([facility] V24, [facility] V28) PAD (peripheral artery disease) ([facility] V24) 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 Essential hypertension, benign Acquired hypothyroidism Thrombocytopenia ([facility] V24) Chronic anemia Hepatic cyst Encounter for subsequent annual wellness visit (AWV) in Medicare patient HEMOGLOBIN A1C Routine 02/13/2024 8:29 AM EST Liver disorder Thrombocytopenia, unspecified ([facility] V24) Acquired hypothyroidism Peripheral vascular disease, unspecified ([facility] V24) Diabetic polyneuropathy ([facility] V24, [facility] V28) High blood pressure LIPID PANEL Routine 10/15/2023 DEPRESSION SCREENING Routine 12/26/2022 FALLS RISK ASSESSMENT Routine 12/26/2022 from Last 3 Months or Most Recently Relevant to Health Maintenance Results * (ABNORMAL) POCT Glucose, blood (07/17/2024 3:48 PM EDT) Only the most recent of64 resultswithin the time period is included. [facility] Glucose POCT 232(H) 70 - 100 mg/dL 07/17/2024 3:53 PM EDT [facility] Blood Capillary blood specimen / Unknown 07/17/2024 3:48 PM EDT 07/17/2024 3:54 PM EDT Gigi Maxwell MD LAB POINT OF C ARE TEST DOCKED DEVICE UNSOLICITED RESULTS Final Result [facility] [address] [place] [address], [place] [phone] * (ABNORMAL) CBC auto differential (07/17/2024 5:38 AM EDT) Only the most recent of18 resultswithin the time period is included. [facility] WBC 13.1(H) 4.8 - 10.8 K/mcL LAB HEMETOLOGY METHOD 07/17/2024 6:47 AM EDT [facility] RBC 3.20(L) 4.50 - 5.50 M/[facility] LAB HEMETOLOGY METHOD 07/17/2024 6:47 AM EDT [facility] Hemoglobin 9.9(L) 13.5 - 17.5 g/dL LAB HEMETOLOGY METHOD 07/17/2024 6:47 AM EDT [facility] Hematocrit 28.4(L) 42.0 - 54.0 % LAB HEMETOLOGY METHOD 07/17/2024 6:47 AM [facility] MCV 90.2 79.0 - 98.0 FL LAB HEMETOLOGY METHOD 07/17/2024 6:47 AM [facility] MCH 31.4 27.0 - 32.0 pcg LAB HEMETOLOGY METHOD 07/17/2024 6:47 AM [facility] MCHC 34.9 32.0 - 37.0 g/dL LAB HEMETOLOGY METHOD 07/17/2024 6:47 AM [facility] RDW 16.9(H) 11.0 - 15.0 % LAB HEMETOLOGY METHOD 07/17/2024 6:47 AM [facility] Platelets 57(L) 130 - 400 K/mcL LAB HEMETOLOGY METHOD 07/17/2024 6:47 AM [facility] Comment:previously verified by slide MPV 12.1(H) 7.0 - 11.0 FL LAB HEMETOLOGY METHOD 07/17/2024 6:47 AM [facility] NRBC 0.0 <1.0 % LAB HEMETOLOGY METHOD 07/17/2024 6:47 AM [facility] NRBC Absolute 0.00 <0.10 K/mcL LAB HEMETOLOGY METHOD 07/17/2024 6:47 AM [facility] Neutrophils Relative 66.2 % LAB HEMETOLOGY METHOD 07/17/2024 6:47 AM [facility] Lymphocytes Relative 19.3 % LAB HEMETOLOGY METHOD 07/17/2024 6:47 AM [facility] Monocytes Relative 11.1 % LAB HEMETOLOGY METHOD 07/17/2024 6:47 AM [facility] Eosinophils Relative 2.0 % LAB HEMETOLOGY METHOD 07/17/2024 6:47 AM EDT [facility] Basophils Relative 0.5 % LAB HEMETOLOGY METHOD 07/17/2024 6:47 AM EDT [facility] Immature Granulocytes Relative 0.9 % LAB HEMETOLOGY METHOD 07/17/2024 6:47 AM EDT [facility] Neutrophils Absolute 8.63(H) 1.50 - 7.00 K/mcL LAB HEMETOLOGY METHOD 07/17/2024 6:47 AM EDT [facility] Lymphocytes Absolute 2.52 1.00 - 5.00 K/mcL LAB HEMETOLOGY METHOD 07/17/2024 6:47 AM EDT [facility] Monocytes Absolute 1.45(H) 0.20 - 1.00 K/mcL LAB HEMETOLOGY METHOD 07/17/2024 6:47 AM EDT [facility] Eosinophils Absolute 0.26 0.00 - 0.50 K/mcL LAB HEMETOLOGY METHOD 07/17/2024 6:47 AM EDT [facility] Basophils Absolute 0.07 0.00 - 0.20 K/mcL LAB HEMETOLOGY METHOD 07/17/2024 6:47 AM EDT [facility] Immature Granulocytes Absolute 0.12(H) 0.00 - 0.03 K/mcL LAB HEMETOLOGY METHOD 07/17/2024 6:47 AM EDT [facility] Blood Venous blood specimen / Unknown Venipuncture / Unknown 07/17/2024 5:38 AM EDT 07/17/2024 6:15 AM EDT us Gigi Maxwell MD LAB BLOOD ORDERABLES F inal Result [facility] [address] [place] [address], * Phosphorus (07/17/2024 5:38 AM EDT) Only the most recent of4 resultswithin the time period is included. [facility] Phosphorus 4.3 2.5 - 4.5 mg/dL LAB CHEMISTRY METHOD 07/17/2024 6:53 AM EDT [facility] Blood Venous blood specimen / Unknown Venipuncture / Unknown 07/17/2024 5:38 AM EDT 07/17/2024 6:14 AM EDT us Gigi Maxwell MD LAB BLOOD ORDERABLES F inal Result Performing Organization Address City/[facility]/ZIP Co de Phone Number [facility] [address] [place] [address], [place] [phone] * (ABNORMAL) Magnesium (07/17/2024 5:38 AM EDT) Only the most recent of14 resultswithin the time period is included. [facility] Magnesium 2.9(H) 1.9 - 2.6 mg/dL LAB CHEMISTRY METHOD 07/17/2024 6:53 AM EDT [facility] Blood Venous blood specimen / Unknown Venipuncture / Unknown 07/17/2024 5:38 AM EDT 07/17/2024 6:14 AM EDT us Gigi Maxwell MD LAB BLOOD ORDERABLES F inal Result [facility] [address] [place] [address], [place] [phone] * (ABNORMAL) Basic metabolic panel (07/17/2024 5:38 AM EDT) Only the most recent of19 resultswithin the time period is included. [facility] Sodium 125(L) 133 - 145 mmol/L LAB CHEMISTRY METHOD 07/17/2024 6:55 AM EDT [facility] Potassium 4.5 3.5 - 5.5 mmol/L LAB CHEMISTRY METHOD 07/17/2024 6:55 AM [facility] Chloride 98 96 - 110 mmol/L LAB CHEMISTRY METHOD 07/17/2024 6:55 AM [facility] CO2 16(L) 21 - 32 mmol/L LAB CHEMISTRY METHOD 07/17/2024 6:55 AM [facility] Anion Gap 11 3 - 11 LAB CHEMISTRY METHOD 07/17/2024 6:55 AM [facility] Glucose 214(H) 70 - 100 mg/dL LAB CHEMISTRY METHOD 07/17/2024 6:55 AM [facility] BUN 80(H) 5 - 25 mg/dL LAB CHEMISTRY METHOD 07/17/2024 6:55 AM [facility] Creatinine 2.07(H) 0.70 - 1.30 mg/dL LAB CHEMISTRY METHOD 07/17/2024 6:55 AM [facility] eGFR 32(L) >=60 mL/min/1. 73m2 LAB CHEMISTRY METHOD 07/17/2024 6:55 AM [facility] Comment:Calculation based on the??Chronic Kidney Disease Epidemiology Collaboration (CKD-EPI) equation refit??without adjustment for race. BUN/Creatinine Ratio 38.6 LAB CHEMISTRY METHOD 07/17/2024 6:55 AM [facility] Calcium 8.4(L) 8.5 - 10.5 mg/dL LAB CHEMISTRY METHOD 07/17/2024 6:55 AM [facility] Blood Venous blood specimen / Unknown Venipuncture / Unknown 07/17/2024 5:38 AM EDT 07/17/2024 6:14 AM EDT us Gigi Maxwell MD LAB BLOOD ORDERABLES F inal Result [facility] [address] [place] [address], [place] [phone] * (ABNORMAL) Urinalysis with reflex microscopic and culture (07/16/2024 7:01 PM EDT) Only the most recent of5 resultswithin the time period is included. Specific [place] Urine 1.016 1.003 - 1.030 LAB URINALYSIS - AUTOMATED METHOD 07/16/2024 10:56 PM [facility] pH, Urine 5.5 5.0 - 8.0 pH LAB URINALYSIS - AUTOMATED METHOD 07/16/2024 10:56 PM [facility] Leukocytes, Urine Moderate(A) Negative LAB URINALYSIS - AUTOMATED METHOD 07/16/2024 10:56 PM [facility] Nitrite, Urine Negative Negative LAB URINALYSIS - AUTOMATED METHOD 07/16/2024 10:56 PM [facility] Protein, Urine 30(A) <=Trace mg/dL LAB URINALYSIS - AUTOMATED METHOD 07/16/2024 10:56 PM [facility] Glucose, Urine Negative Negative mg/dL LAB URINALYSIS - AUTOMATED METHOD 07/16/2024 10:56 PM [facility] Ketones, Urine Negative Negative mg/dL LAB URINALYSIS - AUTOMATED METHOD 07/16/2024 10:56 PM [facility] Urobilinogen , Urine 1.0 0.2 - 1.0 mg/dL LAB URINALYSIS - AUTOMATED METHOD 07/16/2024 10:56 PM [facility] Bilirubin, Urine Negative Negative LAB URINALYSIS - AUTOMATED METHOD 07/16/2024 10:56 PM [facility] Blood, Urine Large(A) Negative LAB URINALYSIS - AUTOMATED METHOD 07/16/2024 10:56 PM [facility] RBC, Urine 4.0 0 - 4 /HPF LAB URINALYSIS - AUTOMATED METHOD 07/16/2024 10:56 PM EDT [facility] WBC, Urine 33.2(H) 0 - 4 /HPF LAB URINALYSIS - AUTOMATED METHOD 07/16/2024 10:56 PM EDT [facility] Squamous Epithelial, Urine 24 0 - 60 /LPF LAB URINALYSIS - AUTOMATED METHOD 07/16/2024 10:56 PM EDT [facility] Bacteria, Urine Negative Negative /HPF LAB URINALYSIS - AUTOMATED METHOD 07/16/2024 10:56 PM EDT [facility] Hyaline Casts, Urine 5.2(H) 0 - 3 /LPF LAB URINALYSIS - AUTOMATED METHOD 07/16/2024 10:56 PM EDT [facility] Yeast, Urine Present(A) None /HPF LAB URINALYSIS - AUTOMATED METHOD 07/16/2024 10:56 PM EDT [facility] Urine Urine specimen obtained by clean catch procedure / Unknown Non-blood Collection / Unknown 07/16/2024 7:01 PM EDT 07/16/2024 10:05 PM EDT us Maya OWUSU LAB URINE ORDERABLES Final Resu lt [facility] [address] [place] [address], [place] [phone] * Munoz urine culture tube (07/16/2024 7:01 PM EDT) Only the most recent of5 resultswithin the time period is included. Extra Tube Hold for add-ons. 07/17/2024 12:02 AM EDT [facility] Comment:Auto resulted. Urine Urine specimen obtained by clean catch procedure / Unknown Non-blood Collection / Unknown 07/16/2024 7:01 PM EDT 07/16/2024 10:05 PM EDT us Maya OWUSU LAB URINE ORDERABLES Final Resu lt Performing Organization Address [facility] Co de Phone Number [facility] [address] [place] [address], [place] [phone] * Culture urine (07/16/2024 7:01 PM EDT) Only the most recent of2 resultswithin the time period is included. Culture, Urine <10,000 CFU/mL gram positive cocci, insignificant count, no further workup 07/18/2024 11:16 AM EDT [facility] Urine Urine specimen obtained by clean catch procedure / Unknown Non-blood Collection / Unknown 07/16/2024 7:01 PM EDT 07/16/2024 10:56 PM EDT Maya OWUSU LAB MICROBIOLOGY - GENERAL ORDE RABLES Final Result Performing Organization Address [facility] de Phone Number [facility] [address] [place] [address], * (ABNORMAL) Sodium (07/15/2024 6:20 PM EDT) Only the most recent of2 resultswithin the time period is included. Sodium 125(L) 133 - 145 mmol/L LAB CHEMISTRY METHOD 07/15/2024 7:09 PM EDT [facility] Blood Venous blood specimen / Unknown Venipuncture / Unknown 07/15/2024 6:20 PM EDT 07/15/2024 6:52 PM EDT Gigi Maxwell MD LAB BLOOD ORDERABLES F inal Result Performing Organization Address [facility] Co de Phone Number [facility] [address] [place] [address], [place] [phone] * Osmolality (07/15/2024 4:34 AM EDT) Only the most recent of3 resultswithin the time period is included. [facility] Osmolality Jerman 292 280 - 300 mOsm/kg LAB CHEMISTRY METHOD 07/15/2024 9:26 AM [facility] Blood Venous blood specimen / Unknown Venipuncture / Unknown 07/15/2024 4:34 AM EDT 07/15/2024 6:05 AM EDT us Sonido Nunez MD LAB BLOOD ORDERABLES Final Resu lt [facility] [address] [place] [address], [place] [phone] * (ABNORMAL) Comprehensive metabolic panel (07/15/2024 4:34 AM EDT) Only the most recent of7 resultswithin the time period is included. [facility] Sodium 121(L) 133 - 145 mmol/L LAB CHEMISTRY METHOD 07/15/2024 7:25 AM [facility] Potassium 5.1 3.5 - 5.5 mmol/L LAB CHEMISTRY METHOD 07/15/2024 7:25 AM [facility] Chloride 93(L) 96 - 110 mmol/L LAB CHEMISTRY METHOD 07/15/2024 7:25 AM [facility] CO2 20(L) 21 - 32 mmol/L LAB CHEMISTRY METHOD 07/15/2024 7:25 AM [facility] Anion Gap 8 3 - 11 LAB CHEMISTRY METHOD 07/15/2024 7:25 AM [facility] Glucose 227(H) 70 - 100 mg/dL LAB CHEMISTRY METHOD 07/15/2024 7:25 AM [facility] BUN 66(H) 5 - 25 mg/dL LAB CHEMISTRY METHOD 07/15/2024 7:25 AM [facility] Creatinine 2.29(H) 0.70 - 1.30 mg/dL LAB CHEMISTRY METHOD 07/15/2024 7:25 AM [facility] eGFR 28(L) >=60 mL/min/1. 73m2 LAB CHEMISTRY METHOD 07/15/2024 7:25 AM [facility] Comment:Calculation based on the??Chronic Kidney Disease Epidemiology Collaboration (CKD-EPI) equation refit??without adjustment for race. BUN/Creatinine Ratio 28.8 LAB CHEMISTRY METHOD 07/15/2024 7:25 AM [facility] Calcium 8.7 8.5 - 10.5 mg/dL LAB CHEMISTRY METHOD 07/15/2024 7:25 AM [facility] AST (SGOT) 61(H) 10 - 42 unit/L LAB CHEMISTRY METHOD 07/15/2024 7:25 AM [facility] ALT (SGPT) 98(H) 10 - 60 unit/L LAB CHEMISTRY METHOD 07/15/2024 7:25 AM [facility] Alkaline Phosphatase 711(H) 42 - 121 unit/L LAB CHEMISTRY METHOD 07/15/2024 7:25 AM [facility] Total Protein 5.6(L) 6.0 - 8.0 g/dL LAB CHEMISTRY METHOD 07/15/2024 7:25 AM [facility] Albumin 3.2 3.2 - 5.0 g/dL LAB CHEMISTRY METHOD 07/15/2024 7:25 AM [facility] Total Bilirubin 1.7(H) 0.0 - 1.4 mg/dL LAB CHEMISTRY METHOD 07/15/2024 7:25 AM [facility] Blood Venous blood specimen / Unknown Venipuncture / Unknown 07/15/2024 4:34 AM EDT 07/15/2024 6:05 AM EDT us Maya OWUSU LAB BLOOD ORDERABLES Final Resu lt [facility] [address] [place] [address], * Respiratory virus panel molecular study (07/15/2024 2:01 AM EDT) Only the most recent of3 resultswithin the time period is included. Adenovirus Detection by PCR Not Detected Not Detected LAB MICROBIOLOGY METHOD 07/15/2024 3:44 AM EDT [facility] Influenza A PCR Not Detected Not Detected LAB MICROBIOLOGY METHOD 07/15/2024 3:44 AM EDT [facility] Influenza B PCR Not Detected Not Detected LAB MICROBIOLOGY METHOD 07/15/2024 3:44 AM EDT [facility] Coronavirus 229E Not Detected Not Detected LAB MICROBIOLOGY METHOD 07/15/2024 3:44 AM EDT [facility] Coronavirus HKU1 Not Detected Not Detected LAB MICROBIOLOGY METHOD 07/15/2024 3:44 AM EDT [facility] Coronavirus OC43 Not Detected Not Detected LAB MICROBIOLOGY METHOD 07/15/2024 3:44 AM EDT [facility] Coronavirus NL63 Not Detected Not Detected LAB MICROBIOLOGY METHOD 07/15/2024 3:44 AM EDT [facility] Parainfluenza Virus 1 Not Detected Not Detected LAB MICROBIOLOGY METHOD 07/15/2024 3:44 AM EDT [facility] Parainfluenza Virus 2 Not Detected Not Detected LAB MICROBIOLOGY METHOD 07/15/2024 3:44 AM EDT [facility] Parainfluenza Virus 3 Not Detected Not Detected LAB MICROBIOLOGY METHOD 07/15/2024 3:44 AM EDT [facility] Parainfluenza Virus 4 Not Detected Not Detected LAB MICROBIOLOGY METHOD 07/15/2024 3:44 AM EDT [facility] RSV PCR Not Detected Not Detected LAB MICROBIOLOGY METHOD 07/15/2024 3:44 AM EDT [facility] Human Metapneumovirus A and B Not Detected Not Detected LAB MICROBIOLOGY METHOD 07/15/2024 3:44 AM EDT [facility] Rhinovirus/Entero virus Not Detected Not Detected LAB MICROBIOLOGY METHOD 07/15/2024 3:44 AM EDT [facility] Bordetella pertussis Not Detected Not Detected LAB MICROBIOLOGY METHOD 07/15/2024 3:44 AM EDT [facility] Bordetella parapertussis Not Detected Not Detected LAB MICROBIOLOGY METHOD 07/15/2024 3:44 AM EDT [facility] Mycoplasma pneumo by PCR Not Detected Not Detected LAB MICROBIOLOGY METHOD 07/15/2024 3:44 AM EDT [facility] Chlamydia pneumoniae Not Detected Not Detected LAB MICROBIOLOGY METHOD 07/15/2024 3:44 AM EDT [facility] SARS COV-2 Not Detected Not Detected LAB MICROBIOLOGY METHOD 07/15/2024 3:44 AM EDT [facility] Swab Both anterior nares / Unknown Non-blood Collection / Unknown 07/15/2024 2:01 AM EDT 07/15/2024 2:53 AM EDT [facility] - 07/15/2024 3:44 AM EDT Testing was performed using the [employer] Respiratory Pathogen PCR Assay. All results must be correlated with the clinical findings. Results should not be used as the sole basis for diagnosis. False Negative results may occur from the presence of sequence variants in the region targeted by the assay or the presence of inhibitors. Results may be affected by concurrent antiviral/antimicrobial therapy or levels of organisms that are below the limit of detection. Maya OWUSU LAB MICROBIOLOGY - GENERAL JOSE TALAMANTES Final Result [facility] [address] [place] [address], * ECG-Annotated (07/15/2024) Only the most recent of4 resultswithin the time period is included. Provider Onbase ECG ORDERABLES Final Result * XR Chest 1 View (07/14/2024 3:01 PM EDT) Only the most recent of5 resultswithin the time period is included. Anatomical Region Laterality Modality Body Radiographic Kandis ging 07/14/2024 3:44 PM EDT Impressions 07/14/2024 3:46 PM EDT FINDINGS/IMPRESSION: Hypoventilatory examination. ??Volume loss at the lung bases. ??Possible hiatal hernia. ??Patchy right upper lobe opacity could represent infiltrate or scarring. ??Prominent bulla at the left apex. -------- FINAL REPORT -------- Dictated By: Lance John Dictated Date: 07/14/2024 15:44 ET Assigned Physician: Lance John Reviewed and Electronically Signed By: Lance John Signed Date: 07/14/2024 15:46 ET Workstation ID: [id number] Transcribed By: Self Edit Transcribed Date: 07/14/2024 15:44 ET Narrative 07/14/2024 3:46 PM EDT XR CHEST 1 VIEW INDICATION: leukocytosis TECHNIQUE: XR CHEST 1 VIEW COMPARISON: No priors available. Procedure Note Lance John MD - 07/14/2024 XR CHEST 1 VIEW INDICATION: leukocytosis TECHNIQUE: XR CHEST 1 VIEW COMPARISON: No priors available. IMPRESSION: FINDINGS/IMPRESSION: Hypoventilatory examination. Volume loss at the lungbases. Possible hiatal hernia. Patchy right upper lobe opacity couldrepresent infiltrate or scarring. Prominent bulla at the left apex. -------- FINAL REPORT -------- Dictated By: Lance John Dictated Date: 07/14/2024 15:44 ET Assigned Physician: Lance John Reviewed and Electronically Signed By: Lance John Signed Date: 07/14/2024 15:46 ET Workstation ID: [id number] Transcribed By: Self Edit Transcribed Date: 07/14/2024 15:44 ET Chase Courtney MD IMG XR PROCEDURES Final Result * US Paracentesis w Image Guidance (07/14/2024 12:05 PM EDT) Only the most recent of11 resultswithin the time period is included. Anatomical Region Laterality Modality Abdomen Ultrasound 07/14/2024 3:20 PM EDT Impressions 07/14/2024 4:38 PM EDT Successful paracentesis of 5 L of ascitic fluid without complications. -------- FINAL REPORT -------- Dictated By: Roxanna Murguia Dictated Date: 07/14/2024 15:20 ET Assigned Physician: Junaid Kuhn Reviewed and Electronically Signed By: Junaid Kuhn Signed Date: 07/14/2024 16:38 ET Workstation ID: [id number] Transcribed By: Self Edit Transcribed Date: 07/14/2024 15:20 ET Resident/PA/JUNIOR ADMINISTRATIVE ASSISTANT: Roxanna Murguia Narrative 07/14/2024 4:38 PM EDT HISTORY: Ascites. TECHNIQUE: After written informed consent was obtained the patient was placed supine on the ultrasound stretcher and multiple images were obtained for characterization and localization of ascites. The skin was marked, prepped and draped in the usual sterile fashion. 2% lidocaine was used as local anesthetic. A paracentesis needle was advanced under gentle suction. When fluid aspirated the paracentesis catheter was threaded over the needle into the ascitic fluid. The needle was removed and the catheter was attached to tubing and then vacuum bottles. After completion of drainage the catheter was removed and a bandage was applied. The patient tolerated the procedure well and left the department in stable condition without any immediate complications. FINDINGS: Initial ultrasound images demonstrate large volume ascites. Pocket in right lower quadrant localized for drainage. Procedure Note Junaid Kuhn MD - 07/14/2024 HISTORY: Ascites. TECHNIQUE: After written informed consent was obtained the patient wasplaced supine on the ultrasound stretcher and multiple images wereobtained for characterization and localization of ascites. The skin wasmarked, prepped and draped in the usual sterile fashion. 2% lidocaine wasused as local anesthetic. A paracentesis needle was advanced under gentlesuction. When fluid aspirated the paracentesis catheter was threaded overthe needle into the ascitic fluid. The needle was removed and the catheterwas attached to tubing and then vacuum bottles. After completion ofdrainage the catheter was removed and a bandage was applied. The patienttolerated the procedure well and left the department in stable conditionwithout any immediate complications. FINDINGS: Initial ultrasound images demonstrate large volume ascites. Pocket inright lower quadrant localized for drainage. IMPRESSION: Successful paracentesis of 5 L of ascitic fluid without complications. -------- FINAL REPORT -------- Dictated By: Roxanna Murguia Dictated Date: 07/14/2024 15:20 ET Assigned Physician: Junaid Kuhn Reviewed and Electronically Signed By: Junaid Kuhn Signed Date: 07/14/2024 16:38 ET Workstation ID: [id number] Transcribed By: Self Edit Transcribed Date: 07/14/2024 15:20 ET Resident/PA/JUNIOR ADMINISTRATIVE ASSISTANT: Roxanna Murguia us Edi Shipman DO IMG US PROCEDURES Final Res ult * ECG 12 lead (07/14/2024 10:18 AM EDT) Only the most recent of5 resultswithin the time period is included. Ventricular Rate ECG 78 BPM GEMUSE Atrial Rate 78 BPM GEMUSE P-R Interval 186 ms GEMUSE QRS Duration 96 ms GEMUSE Q-T Interval 370 ms GEMUSE QTc 421 ms GEMUSE P Wave Wy[place] -3 degrees GEMUSE R Wy[place] 19 degrees GEMUSE T Wy[place] 42 degrees GEMUSE ECG Interpretation Sinus rhythm with occasional Premature ventricular complexes Cannot rule out Anterior infarct , age undetermined Abnormal ECG When compared with ECG of 07-JUL-2024 18:50, Premature ventricular complexes are now Present Confirmed by HILARIA SANTOYO ([id number]) on 07/14/2024 9:15:37 PM GEMUSE 07/14/2024 10:1 8 AM EDT 07/14/2024 9:15 PM EDT us Fauzia OWUSU ECG ORDERABLES Final Re sult GEMUSE * APTT (07/14/2024 9:17 AM EDT) aPTT 31.0 24.1 - 39.3 sec LAB COAGULATION METHOD 07/14/2024 9:54 AM EDT [facility] Blood Venous blood specimen / Unknown Venipuncture / Unknown 07/14/2024 9:17 AM EDT 07/14/2024 9:40 AM EDT Fauzia Mensah PA LAB BLOOD ORDERABLES Fin al Result Performing Organization Address [facility] de Phone Number [facility] [address] [place] [address], * Protime-INR (07/14/2024 9:17 AM EDT) Only the most recent of3 resultswithin the time period is included. Protime 12.4 10.6 - 13.9 sec LAB COAGULATION METHOD 07/14/2024 11:18 AM EDT [facility] INR 1.0 LAB COAGULATION METHOD 07/14/2024 11:18 AM EDT [facility] Blood Venous blood specimen / Unknown Venipuncture / Unknown 07/14/2024 9:17 AM EDT 07/14/2024 9:40 AM EDT Edi Shipman DO LAB BLOOD ORDERABLES Final Result Performing Organization Address City/[facility]/ZIP Co de Phone Number [facility] [address] [place] [address], [place] [phone] * Ammonia (07/14/2024 9:17 AM EDT) Only the most recent of4 resultswithin the time period is included. Ammonia 17 11 - 35 mcmol/L LAB CHEMISTRY METHOD 07/14/2024 10:06 AM EDT [facility] Blood Venous blood specimen / Unknown Venipuncture / Unknown 07/14/2024 9:17 AM EDT 07/14/2024 9:39 AM EDT us Fauzia OWUSU LAB BLOOD ORDERABLES Hebert al Result AMALIA [facility] ([facility] [address] [place] [address], * XR Chest 2 Views (07/09/2024 9:53 AM EDT) Only the most recent of2 resultswithin the time period is included. Anatomical Region Laterality Modality Body Radiographic Kandis ging 07/09/2024 10:4 5 AM EDT Impressions 07/09/2024 10:48 AM EDT No definite evidence of pleural fluid. Elevated right hemidiaphragm causes volume loss in the right lower lung zone. Hyperlucent left upper lung zone. -------- FINAL REPORT -------- Dictated By: Nigel Clarke Dictated Date: 07/09/2024 10:45 ET Assigned Physician: Nigel Clarke Reviewed and Electronically Signed By: Nigel Clarke Signed Date: 07/09/2024 10:48 ET Workstation ID: [id number] Transcribed By: Self Edit Transcribed Date: 07/09/2024 10:45 ET Narrative 07/09/2024 10:48 AM EDT EXAMINATION: CHEST CLINICAL INFORMATION: Pleural effusion COMPARISON: Frontal view 07/07/24 TECHNIQUE: 2 views of the chest FINDINGS: There is some kyphosis. There is a tortuous aorta. There is a normal cardiac size with a left ventricular configuration. There is no left hilar mass. No short interval change in the right hilum. No consolidation in the left lung. Hyperlucent left upper lung zone possibly related to bullous disease. Stable moderate relative elevation of the right hemidiaphragm. No new consolidation of the right lung. No blunting posteriorly. Procedure Note Nigel Clarke MD - 07/09/2024 EXAMINATION: CHEST CLINICAL INFORMATION: Pleural effusion COMPARISON: Frontal view 07/07/24 TECHNIQUE: 2 views of the chest FINDINGS: There is some kyphosis. There is a tortuous aorta. There is a normalcardiac size with a left ventricular configuration. There is no left hilarmass. No short interval change in the right hilum. No consolidation in the left lung. Hyperlucent left upper lung zonepossibly related to bullous disease. Stable moderate relative elevation of the right hemidiaphragm. No new consolidation of the right lung. No blunting posteriorly. IMPRESSION: No definite evidence of pleural fluid. Elevated right hemidiaphragm causesvolume loss in the right lower lung zone. Hyperlucent left upper lung zone. -------- FINAL REPORT -------- Dictated By: Nigel Clarke Dictated Date: 07/09/2024 10:45 ET Assigned Physician: Nigel Clarke Reviewed and Electronically Signed By: Nigel Clarke Signed Date: 07/09/2024 10:48 ET Workstation ID: [id number] Transcribed By: Self Edit Transcribed Date: 07/09/2024 10:45 ET us Melba Quinones MD IMG XR PROCEDURES Final Res ult * (ABNORMAL) TRANSTHORACIC ECHOCARDIOGRAM (TTE) COMPLETE W/ CONTRAST (07/08/2024 10:31 AM EDT) Aortic Sinus Valsalva 3.9 cm CV PACS LVOT Diameter 2.2 cm CV PACS LVOT Area 3.8 cm2 CV PACS MV Deceleration Donley 4.0 m/s2 CV PACS E Wave Deceleration Time 150 119 - 242 ms CV PACS MV PHT 44 ms CV PACS MV Peak A Dilan 0.93 m/s CV PACS MV Peak E Dilan 0.61 m/s CV PACS MV Area PHT 5.0 cm2 CV PACS PV Acceleration Time 127 ms CV PACS PV Mean Gradient 2 mmHg CV PACS PV VTI 18.5 cm CV PACS PV Peak Velocity 1.2 m/s CV PACS PV Peak Gradient 6 mmHg CV PACS E/A Ratio 0.7 CV PACS BSA 1.88 m2 CV PACS IVSD 1.1(A) 0.6 - 1.0 cm CV PACS Anatomical Region Laterality Modality Ultrasound Narrative 07/08/2024 11:06 AM EDT ?This is a nondiagnostic study despite applying Definity contrast due to large amount of ascites. ?Left ventricle cavity appears small from limited parasternal view. ?? Left ventricular systolic function and regional motion cannot be adequately assessed. ??From Limited parasternal long and one subcostal view, left ventricular contraction appears preserved. ?Aortic valve is mildly thickened and appears to open normally. ?Ascites is noted. ?Other cardiac structures and function cannot be assessed. ?Could consider to repeat study after paracentesis. Left Ventricle Left ventricle cavity is small. IVSd measures 1.1 cm. Mitral Valve The leaflets are mildly thickened. Pericardium There is ascites. Study Details Overall the study quality was non-diagnostic. Definity contrast was given to enhance imaging. Study was difficult due to: poor endocardial visualization. us Maya OWUSU CV ECHO PROCEDURES Final Result * (ABNORMAL) Troponin I high sensitivity (07/08/2024 6:31 AM EDT) Only the most recent of7 resultswithin the time period is included. High Sensitivity Troponin I 173(HH) <=79 ng/L LAB CHEMISTRY METHOD 07/08/2024 8:11 AM EDT [facility] Blood Venous blood specimen / Unknown Venipuncture / Unknown 07/08/2024 6:31 AM EDT 07/08/2024 6:48 AM EDT Narrative [facility] - 07/08/2024 8:11 AM EDT High levels of biotin in samples may falsely decrease hsTroponin values. ??Use caution when interpreting hsTroponin results in patients taking biotin who exhibit renal impairment (eGFR <60) or in patients taking more than 20 mg/day of biotin. us Maya OWUSU LAB BLOOD ORDERABLES Final Resu lt [facility] [address] [place] [address], [place] [phone] * SST tube (07/08/2024 6:31 AM EDT) Pathologist [facility] Extra Tube Hold for add-ons. 07/08/2024 8:01 AM EDT [facility] Comment:Auto resulted. Blood Venous blood specimen / Unknown Venipuncture / Unknown 07/08/2024 6:31 AM EDT 07/08/2024 6:50 AM EDT us Melba Quinones MD LAB BLOOD ORDERABLES Final Result [facility] [address] [place] [address], * (ABNORMAL) Procalcitonin (07/08/2024 6:31 AM EDT) Only the most recent of3 resultswithin the time period is included. [facility] Procalcitonin 0.39(H) <=0.16 ng/mL LAB CHEMISTRY METHOD 07/08/2024 9:45 AM EDT [facility] Blood Venous blood specimen / Unknown Venipuncture / Unknown 07/08/2024 6:31 AM EDT 07/08/2024 6:48 AM EDT Narrative [facility] - 07/08/2024 9:45 AM EDT Procalcitonin > 2.00 ng/ml: Procalcitonin Levels above 2.00 ng/ml, on the first day of ICU admission represent a high risk for progression to severe sepsis and/or septic shock. Procalcitonin < 0.50 ng/ml: Procalcitonin levels below 0.50 ng/ml on the first day of ICU admission represent a low risk for progression to severe sepsis and/or septic shock. Concentrations <0.5 ng/mL do not exclude an infection, on account of local ized infections (without systemic signs) which can be associated with such low concentrations, or a systemic infection in its initial stages (<6 hours). Furthermore, increased procalcitonin can occur without infection. PCT concentrations between 0.5 and 2.0 ng/mL should be interpreted taking into account the patient's history. It is recommended to retest PCT within 6-24 hours if any concentrations <2.0 ng/mL are obtained. us Melba Quinones MD LAB BLOOD ORDERABLES Final Result [facility] [address] [place] [address], [place] [phone] * (ABNORMAL) Complete blood count (07/08/2024 6:31 AM EDT) Only the most recent of5 resultswithin the time period is included. WBC 8.7 4.8 - 10.8 K/mcL LAB HEMETOLOGY METHOD 07/08/2024 7:39 AM EDT [facility] RBC 3.10(L) 4.50 - 5.50 M/mcL LAB HEMETOLOGY METHOD 07/08/2024 7:39 AM EDT [facility] Hemoglobin 9.7(L) 13.5 - 17.5 g/dL LAB HEMETOLOGY METHOD 07/08/2024 7:39 AM EDT [facility] Hematocrit 28.6(L) 42.0 - 54.0 % LAB [facility]OLOGY [facility]24 7[facility] MCV 92.3 79.0 - 98.0 FL LAB HEMETOLOGY METHOD 07/08/2024 7:39 AM EDT [facility] MCH 31.3 27.0 - 32.0 pcg LAB [facility]OLOGY [facility]24 7[facility] MCHC 33.9 32.0 - 37.0 g/dL LAB HEMETOLOGY METHOD 07/08/2024 7:39 AM [facility] RDW 16.0(H) 11.0 - 15.0 % LAB HEMETOLOGY METHOD 07/08/2024 7:39 AM EDT [facility] Platelets 35(L) 130 - 400 K/mcL LAB HEMETOLOGY METHOD 07/08/2024 7:39 AM EDT [facility] Comment:previously verified by slide MPV 12.5(H) 7.0 - 11.0 FL LAB HEMETOLOGY METHOD 07/08/2024 7:39 AM EDT [facility] NRBC 0.0 <1.0 % LAB HEMETOLOGY METHOD 07/08/2024 7:39 AM EDT [facility] NRBC Absolute 0.00 <0.10 K/mcL LAB HEMETOLOGY METHOD 07/08/2024 7:39 AM EDT [facility] Blood Venous blood specimen / Unknown Venipuncture / Unknown 07/08/2024 6:31 AM EDT 07/08/2024 6:47 AM EDT us Chase Courtney MD LAB BLOOD ORDERABLES Final Res ult [facility] [address] [place] [address], * (ABNORMAL) C-reactive protein (07/08/2024 6:31 AM EDT) Only the most recent of2 resultswithin the time period is included. C-Reactive Protein 1.51(H) <=0.50 mg/dL LAB CHEMISTRY METHOD 07/08/2024 8:06 AM EDT [facility] Blood Venous blood specimen / Unknown Venipuncture / Unknown 07/08/2024 6:31 AM EDT 07/08/2024 6:48 AM EDT us Melba Quinones MD LAB BLOOD ORDERABLES Final Result [facility] [address] [place] [address], [place] [phone] * Lactate (07/07/2024 8:49 PM EDT) Only the most recent of5 resultswithin the time period is included. [facility] Lactate 1.3 0.4 - 2.0 mmol/L LAB CHEMISTRY METHOD 07/07/2024 10:06 PM EDT [facility] Blood Venous blood specimen / Unknown Venipuncture / Unknown 07/07/2024 8:49 PM EDT 07/07/2024 9:30 PM EDT us Maya OWUSU LAB BLOOD ORDERABLES Final Resu lt Performing Organization Address City/[facility]/ZIP Co de Phone Number [facility] [address] [place] [address], [place] [phone] * MRSA molecular study (07/07/2024 6:54 PM EDT) [facility] MRSA Screen PCR Not Detected Not Detected LAB MICROBIOLOGY METHOD 07/07/2024 9:29 PM EDT [facility] Swab Both anterior nares / Unknown Non-blood Collection / Unknown 07/07/2024 6:54 PM EDT 07/07/2024 8:06 PM EDT us Maya OWUSU LAB MICROBIOLOGY - GENERAL ORDE RABLES Final Result Performing Organization Address City/[facility]/ZIP Co de Phone Number [facility] [address] [place] [address], [place] [phone] * Cell count with reflex differential, body fluid (07/07/2024 12:52 PM EDT) Only the most recent of3 resultswithin the time period is included. [facility] Body Fluid Total Nucleated Cells 379 /mm3 LAB HEMETOLOGY METHOD 07/07/2024 4:00 PM EDT [facility] Body Fluid RBC 7,000 /mm3 LAB HEMETOLOGY METHOD 07/07/2024 4:00 PM EDT [facility] Body Fluid Color Floresita 07/07/2024 4:00 PM EDT [facility] Body Fluid Clarity Cloudy 07/07/2024 4:00 PM EDT [facility] Body Fluid Source Peritoneal 07/07/2024 4:00 PM EDT [facility] Peritoneal Fluid Non-blood Collection / Unknown 07/07/2024 12:52 PM EDT 07/07/2024 12:56 PM EDT Narrative [facility] - 07/07/2024 4:00 PM EDT No reference ranges have been established for body fluids. Clinical correlation recommended. us Angie Mora DO LAB BODY FLUIDS AND STOOL S ORDERABLES Final Result [facility] [address] [place] [address], [place] [phone] * Culture body fluid with gram stain (07/07/2024 12:52 PM EDT) Only the most recent of3 resultswithin the time period is included. Fluid Culture No growth at 3 days LAB MICROBIOLOGY METHOD 07/10/2024 8:58 AM EDT [facility] Gram Stain Result Few Polymorphonuclear leukocytes 07/10/2024 8:58 AM EDT [facility] Gram Stain Result No epithelial cells seen 07/10/2024 8:58 AM EDT [facility] Gram Stain Result No organisms seen 07/10/2024 8:58 AM EDT [facility] Peritoneal Fluid Abdomen / Unknown Non-blood Collection / Unknown 07/07/2024 12:52 PM EDT 07/07/2024 12:56 PM EDT us Angie Mora DO LAB MICROBIOLOGY - GENERA L ORDERABLES Final Result Performing Organization Address [facility]/ZIP Co de Phone Number [facility] [address] [place] [address], [place] [phone] * Differential body fluid (07/07/2024 12:52 PM EDT) Only the most recent of3 resultswithin the time period is included. Fluid Neutrophils % 15 % 07/07/2024 4:00 PM EDT [facility] Fluid Lymphocytes % 38 % 07/07/2024 4:00 PM EDT [facility] Fluid Monocytes/Macrop hages 47 % 07/07/2024 4:00 PM EDT [facility] Fluid Eosinophils % 0 % 07/07/2024 4:00 PM EDT [facility] Fluid Basophils % 0 % 07/07/2024 4:00 PM EDT [facility] Fluid Other Cells % 0 % 07/07/2024 4:00 PM EDT [facility] Peritoneal Fluid Non-blood Collection / Unknown 07/07/2024 12:52 PM EDT 07/07/2024 12:56 PM EDT Narrative [facility] - 07/07/2024 4:00 PM EDT No reference ranges have been established for body fluids. Clinical correlation recommended. Angie Mora DO LAB BODY FLUIDS AND STOOL S ORDERABLES Final Result Performing Organization Address [facility]/ZIP Co de Phone Number [facility] [address] [place] [address], * Glucose, body fluid (07/07/2024 12:52 PM EDT) Only the most recent of2 resultswithin the time period is included. Glucose, Fluid 168 See Comment mg/dL LAB CHEMISTRY METHOD 07/07/2024 1:44 PM EDT [facility] Ascites 07/07/2024 12:5 2 PM EDT 07/07/2024 12:56 PM EDT Narrative [facility] - 07/07/2024 1:44 PM EDT No reference ranges have been established for body fluids. Clinical correlation recommended. Angie Frank Bassamwinston Mora LAB BODY FLUIDS AND STOOL S ORDERABLES Final Result Performing Organization Address City/[facility]/ZIP Co de Phone Number [facility] [address] [place] [address], [place] [phone] * B-type natriuretic peptide (07/07/2024 10:50 AM EDT) BNP 73 <=100 pcg/mL LAB CHEMISTRY METHOD 07/07/2024 11:54 AM EDT [facility] Blood Venous blood specimen / Unknown Venipuncture / Unknown 07/07/2024 10:50 AM EDT 07/07/2024 10:57 AM EDT Edisuman Zac Bassamwinston Mora DO LAB BLOOD ORDERABLES Jessa l Result Performing Organization Address [facility] Co de Phone Number [facility] [address] [place] [address], [place] [phone] * Pathology review, blood smear (07/07/2024 10:21 AM EDT) Pathologist Review Blood Smear Normocytic anemia; smear not diagnostic of etiology. Thrombocytopenia confirmed (no platelet clumps); smear not diagnostic of etiology. Rare hypersegmented neutrophils are noted. Note: ??The patient's clinical history of liver disease, splenomegaly, and renal failure are noted. ??These are likely contributing factors to the patient's cytopenias. ??Clinical correlation and follow-up is recommended. 07/08/2024 8:37 AM EDT [facility] Blood Venous blood specimen / Unknown Venipuncture / Unknown 07/07/2024 10:21 AM EDT 07/07/2024 10:59 AM EDT Angie Mora LAB BLOOD ORDERABLES Jessa l Result Performing Organization Address City/[facility]/ZIP Co de Phone Number [facility] [address] [place] [address], [place] [phone] * Lipase (07/07/2024 10:21 AM EDT) Lipase 55 13 - 75 unit/L LAB CHEMISTRY METHOD 07/07/2024 12:00 PM EDT [facility] Blood Venous blood specimen / Unknown Venipuncture / Unknown 07/07/2024 10:21 AM EDT 07/07/2024 10:59 AM EDT Angie Mora LAB BLOOD ORDERABLES Jessa l Result Performing Organization Address [facility]/ZIP Co de Phone Number [facility] [address] [place] [address], [place] [phone] * (ABNORMAL) Creatine kinase and CKMB (07/07/2024 10:21 AM EDT) Total CK 53 22 - 269 unit/L LAB CHEMISTRY METHOD 07/07/2024 10:44 PM EDT [facility] CK-MB 6.1(H) 1.0 - 3.6 ng/mL LAB CHEMISTRY METHOD 07/07/2024 10:44 PM EDT [facility] CK-MB Index 0.1 0.0 - 5.0 LAB CHEMISTRY METHOD 07/07/2024 10:44 PM EDT [facility] Blood Venous blood specimen / Unknown Venipuncture / Unknown 07/07/2024 10:21 AM EDT 07/07/2024 10:59 AM EDT Maya OWUSU LAB BLOOD ORDERABLES Final Resu lt Performing Organization Address [facility]/ZIP Co de Phone Number [facility] [address] [place] [address], [place] [phone] * (ABNORMAL) Uric acid (07/02/2024 5:17 AM EDT) Only the most recent of3 resultswithin the time period is included. Pathologist [facility] Uric Acid 10.5(H) 3.7 - 9.2 mg/dL LAB CHEMISTRY METHOD 07/02/2024 9:22 AM EDT [facility] Blood Venous blood specimen / Unknown Venipuncture / Unknown 07/02/2024 5:17 AM EDT 07/02/2024 6:17 AM EDT us Gigi Maxwell MD LAB BLOOD ORDERABLES F inal Result Performing Organization Address [facility] Co de Phone Number [facility] [address] [place] [address], [place] [phone] * Yellow urine no additive (07/02/2024 12:43 AM EDT) [facility] Extra Tube Hold for add-ons. 07/02/2024 3:09 AM EDT [facility] Comment:Auto resulted. Urine Urine specimen obtained by clean catch procedure / Unknown 07/02/2024 12:43 AM EDT 07/02/2024 1:04 AM EDT us Gigi Maxwell MD LAB URINE ORDERABLES F inal Result Performing Organization Address [facility]/ZIP Co de Phone Number [facility] [address] [place] [address], [place] [phone] * Sodium, urine, random (07/02/2024 12:43 AM EDT) Only the most recent of5 resultswithin the time period is included. [facility] Sodium, Ur 7 mmol/L LAB CHEMISTRY METHOD 07/02/2024 1:31 AM EDT [facility] Urine Urine specimen obtained by clean catch procedure / Unknown Non-blood Collection / Unknown 07/02/2024 12:43 AM EDT 07/02/2024 1:04 AM EDT us Gigi Maxwell MD LAB URINE ORDERABLES F inal Result Performing Organization Address City/[facility]/ZIP Co de Phone Number [facility] [address] [place] [address], [place] [phone] * Osmolality, urine (07/02/2024 12:43 AM EDT) Only the most recent of2 resultswithin the time period is included. [facility] Osmolality, Urine 321 300 - 1,300 mOsm/kg LAB CHEMISTRY METHOD 07/02/2024 2:26 AM EDT [facility] Urine Urine specimen obtained by clean catch procedure / Unknown Non-blood Collection / Unknown 07/02/2024 12:43 AM EDT 07/02/2024 1:04 AM EDT us Gigi Maxwell MD LAB URINE ORDERABLES F inal Result Performing Organization Address City/[facility]/ZIP Co de Phone Number [facility] [address] [place] [address], [place] [phone] * Gastrointestinal pathogens molecular study (07/01/2024 2:44 AM EDT) [facility] Campylobacter Detection by PCR Not Detected Not Detected LAB MICROBIOLOGY METHOD 5 4:40 AM EDT [facility] Plesiomonas shigelloides Detection by PCR Not Detected Not Detected LAB MICROBIOLOGY METHOD 5 4:40 AM EDT [facility] Salmonella Detection by PCR Not Detected Not Detected LAB MICROBIOLOGY METHOD 5 4:40 AM EDT [facility] Vibrio Detection by PCR Not Detected Not Detected LAB MICROBIOLOGY METHOD 5 4:40 AM EDT [facility] Vibrio cholerae Detection by PCR Not Detected Not Detected LAB MICROBIOLOGY METHOD 5 4:40 AM EDT [facility] Yersinia enterocolitica Detection by PCR Not Detected Not Detected LAB MICROBIOLOGY METHOD 5 4:40 AM EDT [facility] Enteroaggregative E coli EAEC Detection by PCR Not Detected Not Detected LAB MICROBIOLOGY METHOD 5 4:40 AM EDT [facility] Enteropathogenic E coli EPEC Detection Not Detected Not Detected LAB MICROBIOLOGY METHOD 5 4:40 AM T [facility] Enterotoxigenic E coli ETEC LTST Detection Not Detected Not Detected LAB MICROBIOLOGY METHOD 5 4:40 AM EDT [facility] Shiga-like toxin producing E coli STEC STX1 STX2 Det Not Detected Not Detected LAB MICROBIOLOGY METHOD 5 4:40 AM EDT [facility] Shigella Enteroinvasive E coli EIEC Detection Not Detected Not Detected LAB MICROBIOLOGY METHOD 5 4:40 AM [facility] Cryptosporidium Detection by PCR Not Detected Not Detected LAB MICROBIOLOGY METHOD 5 4:40 AM EDT [facility] Cyclospora cayetanensis Detection by PCR Not Detected Not Detected LAB MICROBIOLOGY METHOD 5 4:40 AM EDT [facility] Entamoeba histolytica Detection by PCR Not Detected Not Detected LAB MICROBIOLOGY METHOD 5 4:40 AM EDT [facility] Giardia lamblia Detection by PCR Not Detected Not Detected LAB MICROBIOLOGY METHOD 5 4:40 AM EDT [facility] Adenovirus F 40 41 Detection by PCR Not Detected Not Detected LAB MICROBIOLOGY METHOD 5 4:40 AM EDT [facility] Astrovirus Detection by PCR Not Detected Not Detected LAB MICROBIOLOGY METHOD 5 4:40 AM EDT [facility] Norovirus GI GII Detection by PCR Not Detected Not Detected LAB MICROBIOLOGY METHOD 5 4:40 AM EDT [facility] Sapovirus Detection by PCR Not Detected Not Detected LAB MICROBIOLOGY METHOD 5 4:40 AM EDT [facility] Rotavirus A Detection by PCR Not Detected Not Detected LAB MICROBIOLOGY METHOD 5 4:40 AM EDT [facility] Stool Rectum structure / Unknown Non-blood Collection / Unknown 07/01/2024 2:44 AM EDT 07/01/2024 3:12 AM EDT [facility] - 07/01/2024 4:40 AM EDT PCR testing is much more sensitive than traditional techniques and allows for the detection of low numbers of stool pathogens. The clinical correlation of PCR results with the need for treatment and clinical outcomes has not been established. Therefore the results of PCR testing for stool pathogens must be taken into clinical context when making treatment decisions. This is a diagnostic test only, repeat testing for cure is not advised. You may consider infectious disease consult for additional guidance. ??Testing Performed by MULT[facility] Maya [facility] LAB MICROBIOLOGY - GENERAL JOSE TALAMANTES Final Result [facility] [address] [place] [address], * Clostridium difficile toxin (07/01/2024 2:44 AM EDT) Pathologist [facility] Clostridium difficile GDH Antigen Negative Negative 07/01/2024 3:56 AM EDT [facility] C difficile Toxins A+B, EIA Negative Negative 07/01/2024 3:56 AM EDT [facility] Comment:NEGATIVE FOR TOXIN P RODUCING CLOSTRIDIOIDES DIFFICILE, NO ADDITIONAL TESTING IS NECESSARY. Stool Rectum structure / Unknown Non-blood Collection / Unknown 07/01/2024 2:44 AM EDT 07/01/2024 3:12 AM EDT Maya [facility] LAB MICROBIOLOGY - GENERAL ORDE RABLES Final Result Performing Organization Address [facility] Co de Phone Number [facility] [address] [place] [address], [place] [phone] * (ABNORMAL) Lactate, with reflex (06/23/2024 6:23 PM EDT) Only the most recent of2 resultswithin the time period is included. LACTIC ACID 2.5(H) 0.4 - 2.0 mmol/L LAB CHEMISTRY METHOD 06/23/2024 7:05 PM EDT [facility] Blood Venous blood specimen / Unknown Venipuncture / Unknown 06/23/2024 6:23 PM EDT 06/23/2024 6:40 PM EDT Chase Courtney MD LAB BLOOD ORDERABLES Final Res ult Performing Organization Address [facility] Co de Phone Number [facility] [address] [place] [address], [place] [phone] * CT Chest wo Contrast (06/23/2024 5:43 PM EDT) Anatomical Region Laterality Modality Body Computed Tomogra phy 06/23/2024 6:13 PM EDT Impressions 06/23/2024 6:13 PM EDT Impression: No evidence of abscess or free air. 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 Moderate volume ascites. Diverticulosis without diverticulitis. Possible irregular nodule, left apex. Six-month follow-up chest CT could be considered unless a chest CT exists elsewhere confirming stability. This document has been electronically signed by: Kash Parra MD on 06/23/2024 18:13:33 Narrative 06/23/2024 6:13 PM EDT INDICATION: Pneumonia, effusion or abscess suspected, xray done CT chest without contrast. CT abdomen and pelvis without contrast Comparison: CT - CT ABD PEL WO CONTRAST - 04/14/24 04:52 EST Findings: Chest CT: The heart is borderline enlarged There is moderate atherosclerotic disease of the coronary arteries. There is mild dilation of the main pulmonary arteries. There is a moderate hiatal hernia containing ascites. Thyroid calcifications are present. Subcentimeter lymph nodes are present within the mediastinum. Irregular pleural thickening of the lung apices, somewhat nodular on the left. Questioned more discrete 9 mm pulmonary nodule, anteriorly at the left apex, axial 18. There is airway thickening. There are regions of subpleural reticular prominence and mild fibrosis, for example axial 42. Centrilobular emphysema noted at the lung apices. No effusion or pneumothorax. Abdomen and pelvis: Cirrhotic liver with splenomegaly and evidence of the sequelae of portal venous hypertension. Evaluation limited in the absence of contrast and given significant artifact. Reference axial image 110, there is a low-density lesion within the right hepatic lobe measuring up to 17 mm, increased from prior. The gallbladder, adrenal glands and pancreas are unremarkable. Similar cortical and peripelvic cysts on the right and similar moderate right hydronephrosis. The bladder is distended. There is a left pelvic kidney with mild hydronephrosis. No obstructing calculus identified. Moderate volume ascites. No bowel obstruction, free air or evidence of abscess. Diverticulosis without evidence of diverticulitis. No acute osseous abnormality detected. Procedure Note Kash Parra MD - 06/23/2024 INDICATION: Pneumonia, effusion or abscess suspected, xray done CT chest without contrast. CT abdomen and pelvis without contrast Comparison: CT - CT ABD PEL WO CONTRAST - 04/14/24 04:52 EST Findings: Chest CT: The heart is borderline enlarged There is moderate atherosclerotic disease of the coronary arteries. There is mild dilation of the main pulmonary arteries. There is a moderate hiatal hernia containing ascites. Thyroid calcifications are present. Subcentimeter lymph nodes are present within the mediastinum. Irregular pleural thickening of the lung apices, somewhat nodular on the left. Questioned more discrete 9 mm pulmonary nodule, anteriorly at the left apex, axial 18. There is airway thickening. There are regions of subpleural reticular prominence and mild fibrosis, for example axial 42. Centrilobular emphysema noted at the lung apices. No effusion or pneumothorax. Abdomen and pelvis: Cirrhotic liver with splenomegaly and evidence of the sequelae of portal venous hypertension. Evaluation limited in the absence of contrast and given significant artifact. Reference axial image 110, there is a low-density lesion within theright hepatic lobe measuring up to 17 mm, increased from prior. The gallbladder, adrenal glands and pancreas are unremarkable. Similar cortical and peripelvic cysts on the right and similar moderate right hydronephrosis. The bladder is distended. There is a left pelvic kidney with mild hydronephrosis. No obstructing calculus identified. Moderate volume ascites. No bowel obstruction, free air or evidence of abscess. Diverticulosis without evidence of diverticulitis. No acute osseous abnormality detected. IMPRESSION: Impression: No evidence of abscess or free air. 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 Moderate volume ascites. Diverticulosis without diverticulitis. Possible irregular nodule, left apex. Six-month follow-up chest CT could be considered unless a chest CT exists elsewhere confirming stability. This document has been electronically signed by: Kash Parra MD on 06/23/2024 18:13:33 Chase Courtney MD IMG CT PROCEDURES Final Result * CT Head wo Contrast (06/23/2024 5:43 PM EDT) Anatomical Region Laterality Modality Head and Neck Computed Tomogra phy 06/23/2024 6:13 PM EDT Impressions 06/23/2024 6:13 PM EDT Impression: No evidence of acute process. Ischemic microangiopathy and diffuse volume loss. This document has been electronically signed by: Kash Parra MD on 06/23/2024 18:13:28 Narrative 06/23/2024 6:13 PM EDT INDICATION: Mental status change, unknown cause CT head without contrast Comparison: None Findings: No evidence of acute territorial infarct. There is patchy low density in the periventricular and subcortical white matter. Diffuse volume loss is noted. No hydrocephalus. No hemorrhage, mass effect, mass lesion or midline shift. No abnormal extra-axial fluid. No calvarial fracture. Paranasal sinuses and mastoid air cells are clear. Procedure Note Kash Parra MD - 06/23/2024 INDICATION: Mental status change, unknown cause CT head without contrast Comparison: None Findings: No evidence of acute territorial infarct. There is patchy low density in the periventricular and subcortical white matter. Diffuse volume loss is noted. No hydrocephalus. No hemorrhage, mass effect, mass lesion or midline shift. No abnormal extra-axial fluid. No calvarial fracture. Paranasal sinuses and mastoid air cells are clear. IMPRESSION: Impression: No evidence of acute process. Ischemic microangiopathy and diffusevolume loss. This document has been electronically signed by: Kash Parra MD on 06/23/2024 18:13:28 us Chase Courtney MD IMG CT PROCEDURES Final Result * CT Abdomen Pelvis wo Contrast (06/23/2024 5:43 PM EDT) Anatomical Region Laterality Modality Body Computed Tomogra phy 06/23/2024 6:12 PM EDT Impressions 06/23/2024 6:12 PM EDT Impression: No evidence of abscess or free air. 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 Moderate volume ascites. Diverticulosis without diverticulitis. Possible irregular nodule, left apex. Six-month follow-up chest CT could be considered unless a chest CT exists elsewhere confirming stability. This document has been electronically signed by: Kash Parra MD on 06/23/2024 18:12:49 Narrative 06/23/2024 6:12 PM EDT INDICATION: Abdominal abscess/infection suspected CT chest without contrast. CT abdomen and pelvis without contrast Comparison: CT - CT ABD PEL WO CONTRAST - 04/14/24 04:52 EST Findings: Chest CT: The heart is borderline enlarged There is moderate atherosclerotic disease of the coronary arteries. There is mild dilation of the main pulmonary arteries. There is a moderate hiatal hernia containing ascites. Thyroid calcifications are present. Subcentimeter lymph nodes are present within the mediastinum. Irregular pleural thickening of the lung apices, somewhat nodular on the left. Questioned more discrete 9 mm pulmonary nodule, anteriorly at the left apex, axial 18. There is airway thickening. There are regions of subpleural reticular prominence and mild fibrosis, for example axial 42. Centrilobular emphysema noted at the lung apices. No effusion or pneumothorax. Abdomen and pelvis: Cirrhotic liver with splenomegaly and evidence of the sequelae of portal venous hypertension. Evaluation limited in the absence of contrast and given significant artifact. Reference axial image 110, there is a low-density lesion within the right hepatic lobe measuring up to 17 mm, increased from prior. The gallbladder, adrenal glands and pancreas are unremarkable. Similar cortical and peripelvic cysts on the right and similar moderate right hydronephrosis. The bladder is distended. There is a left pelvic kidney with mild hydronephrosis. No obstructing calculus identified. Moderate volume ascites. No bowel obstruction, free air or evidence of abscess. Diverticulosis without evidence of diverticulitis. No acute osseous abnormality detected. Procedure Note Kash Parra MD - 06/23/2024 INDICATION: Abdominal abscess/infection suspected CT chest without contrast. CT abdomen and pelvis without contrast Comparison: CT - CT ABD PEL WO CONTRAST - 04/14/24 04:52 EST Findings: Chest CT: The heart is borderline enlarged There is moderate atherosclerotic disease of the coronary arteries. There is mild dilation of the main pulmonary arteries. There is a moderate hiatal hernia containing ascites. Thyroid calcifications are present. Subcentimeter lymph nodes are present within the mediastinum. Irregular pleural thickening of the lung apices, somewhat nodular on the left. Questioned more discrete 9 mm pulmonary nodule, anteriorly at the left apex, axial 18. There is airway thickening. There are regions of subpleural reticular prominence and mild fibrosis, for example axial 42. Centrilobular emphysema noted at the lung apices. No effusion or pneumothorax. Abdomen and pelvis: Cirrhotic liver with splenomegaly and evidence of the sequelae of portal venous hypertension. Evaluation limited in the absence of contrast and given significant artifact. Reference axial image 110, there is a low-density lesion within theright hepatic lobe measuring up to 17 mm, increased from prior. The gallbladder, adrenal glands and pancreas are unremarkable. Similar cortical and peripelvic cysts on the right and similar moderate right hydronephrosis. The bladder is distended. There is a left pelvic kidney with mild hydronephrosis. No obstructing calculus identified. Moderate volume ascites. No bowel obstruction, free air or evidence of abscess. Diverticulosis without evidence of diverticulitis. No acute osseous abnormality detected. IMPRESSION: Impression: No evidence of abscess or free air. 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 Moderate volume ascites. Diverticulosis without diverticulitis. Possible irregular nodule, left apex. Six-month follow-up chest CT could be considered unless a chest CT exists elsewhere confirming stability. This document has been electronically signed by: Kash Parra MD on 06/23/2024 18:12:49 Chase Courtney MD IM CT PROCEDURES Final Result * [id number], RSV, Influenza A and B qualitative RT-PCR (06/23/2024 2:17 PM EDT) Pathologist [facility] Influenza A PCR Not Detected Not Detected LAB MICROBIOLOGY METHOD 06/23/2024 3:16 PM EDT [facility] Influenza B PCR Not Detected Not Detected LAB MICROBIOLOGY METHOD 06/23/2024 3:16 PM EDT [facility] RSV PCR Not Detected Not Detected LAB MICROBIOLOGY METHOD 06/23/2024 3:16 PM EDT [facility] SARS COV-2 Not Detected Not Detected LAB MICROBIOLOGY METHOD 06/23/2024 3:16 PM EDT [facility] Swab Both anterior nares / Unknown Non-blood Collection / Unknown 06/23/2024 2:17 PM EDT 06/23/2024 2:25 PM EDT Narrative [facility] - 06/23/2024 3:16 PM EDT Disclaimer: ??Testing was performed using the [facility] GeneXpert Xpress SARS-CoV-2 _Flu_RSV PLUS PCR assay. ??The manner in which this information is used to guide patient care is the responsibility of the healthcare provider. ??Results should be correlated with the clinical history, epidemiological data, and other data available to the clinician evaluating the patient. ??Negative results do not preclude infection. ??This test has been authorized by the FDA under an Emergency Use Authorization (EUA). ??This test is only authorized for the duration of time the declaration that circumstances exist justifying the authorization of the emergency use of in vitro diagnostic tests for detection of SARS-CoV-2 virus and/or diagnosis of COVID-19 infection under section 564 (b) (1) of the Act, 21 U.S.C 360bbb-3 (b) (1), unless the authorization is terminated or revoked sooner. ?? Reference Range: Not Detected Fact sheet for Healthcare providers can be found at https://www.fda.gov/media/374951/download. ?? Fact sheet for Healthcare patients can be found at https://www.fda.gov/media/268929/download. Ivan Becerra MD LAB MICROBIOLOGY - GENERAL ORDERABLES Final Result Performing Organization Address [facility] Co de Phone Number [facility] [address] [place] [address], [place] [phone] * Blood culture (06/23/2024 2:09 PM EDT) Only the most recent of4 resultswithin the time period is included. [facility] Culture, Blood No growth at 5 days LAB MICROBIOLOGY METHOD 06/28/2024 3:01 PM EDT [facility] Blood Venous blood specimen / Unknown Venipuncture / Unknown 06/23/2024 2:09 PM EDT 06/23/2024 2:27 PM EDT Ivan Becerra MD LAB MICROBIOLOGY - GENERAL ORDERABLES Final Result Performing Organization Address [facility] Co de Phone Number [facility] [address] [place] [address], [place] [phone] * (ABNORMAL) Manual differential (06/23/2024 2:06 PM EDT) Neutrophils % 81.0 % LAB HEMETOLOGY METHOD 06/23/2024 3:12 PM EDT [facility] Lymphocytes % 11.0 % LAB HEMETOLOGY METHOD 06/23/2024 3:12 PM EDT [facility] Monocytes % 8.0 % LAB HEMETOLOGY METHOD 06/23/2024 3:12 PM EDT [facility] Eosinophils % 0.0 % LAB HEMETOLOGY METHOD 06/23/2024 3:12 PM EDT [facility] Basophils % 0.0 % LAB HEMETOLOGY METHOD 06/23/2024 3:12 PM EDT [facility] Neutrophils Absolute Manual 17.01(H) 1.50 - 7.00 K/mcL LAB HEMETOLOGY METHOD 06/23/2024 3:12 PM EDT [facility] Lymphocytes Absolute 2.31 1.00 - 5.00 K/mcL LAB HEMETOLOGY METHOD 06/23/2024 3:12 PM EDT [facility] Monocytes Absolute Manual 1.68(H) 0.20 - 1.00 K/mcL LAB HEMETOLOGY METHOD 06/23/2024 3:12 PM EDT [facility] Eosinophils Absolute Manual 0.00 0.00 - 0.50 K/mcL LAB HEMETOLOGY METHOD 06/23/2024 3:12 PM EDT [facility] Basophils Absolute Manual 0.00 0.00 - 0.20 K/mcL LAB HEMETOLOGY METHOD 06/23/2024 3:12 PM EDT [facility] Rbc Morphology See comment( A) Consistent with indices, Normal for [place] LAB HEMETOLOGY METHOD 06/23/2024 3:12 PM EDT [facility] Comment:RBC: Morphology agre es with CBC Platelet Morphology - WAM See Note(A) Normal LAB HEMETOLOGY METHOD 06/23/2024 3:12 PM EDT [facility] Comment:PLT: Normal Blood Venous blood specimen / Unknown Venipuncture / Unknown 06/23/2024 2:06 PM EDT 06/23/2024 2:24 PM EDT us Ivan Becerra MD LAB BLOOD ORDERABLES Final Result Performing Organization Address [facility] Co de Phone Number [facility] [address] [place] [address], [place] [phone] * [place] top urine tube (06/13/2024 12:36 PM EST) Only the most recent of2 resultswithin the time period is included. Pathologist [facility] Extra Tube Hold for add-ons. 06/13/2024 3:02 PM EST [facility] Comment:Auto resulted. Urine Urine specimen obtained by clean catch procedure / Unknown 06/13/2024 12:36 PM EST 06/13/2024 1:56 PM EST Martir Marques MD LAB URINE ORDERABLE S Final Result Performing Organization Address [facility] de Phone Number [facility] [address] [place] [address], [place] [phone] * Protein, body fluid (06/13/2024 11:37 AM EST) [facility] Protein, Fluid 1.9 See Comment g/dL LAB CHEMISTRY METHOD 06/13/2024 12:32 PM EST [facility] Ascites Peritoneal cavity structure / Unknown 06/13/2024 11:37 AM EST 06/13/2024 11:44 AM EST Narrative [facility] - 06/13/2024 12:32 PM EST No reference ranges have been established for body fluids. Clinical correlation recommended. Dimas Madsen MD LAB BODY FLUIDS AND STOOLS OR DERABLES Final Result Performing Organization Address [facility] Co de Phone Number [facility] [address] [place] [address], [place] [phone] * Albumin, body fluid (06/13/2024 11:37 AM EST) Albumin, Fluid 1.0 See Comment g/dL LAB CHEMISTRY METHOD 06/13/2024 12:32 PM EST [facility] Ascites Peritoneal cavity structure / Unknown 06/13/2024 11:37 AM EST 06/13/2024 11:44 AM EST Narrative [facility] - 06/13/2024 12:32 PM EST No reference ranges have been established for body fluids. Clinical correlation recommended. us Dimas Madsen MD LAB BODY FLUIDS AND STOOLS OR DERABLES Final Result [facility] [address] [place] [address], * Non-gynecologic cytology (06/13/2024 11:37 AM EST) Final Diagnosis A. Peritoneal fluid, ascites, (ThinPrep, cell block): Negative for malignant cells. 06/16/2024 10:43 AM EDT [facility] Specimen A Adequacy Satisfactory for evaluation 06/16/2024 10:43 AM EDT [facility] Gross Description A. Peritoneal Cavity, : Received 500 ml of orange fluid; 1 ThinPrep, 1 Cell block Cell block in formalin @1530; total formalin fixation time 53.5 hours. 06/16/2024 10:43 AM EDT [facility] Disclaimer Unless otherwise specified, all tissue is 10% NB formalin fixed and paraffin embedded. Technical cytopathology services provided by [facility], at [address] [place] [id number] (CLIA # [id number]/Tyra Pang MD, Director Of Medical Education.) 06/16/2024 10:43 AM EDT [facility] Ascites Peritoneal cavity structure / Unknown 06/13/2024 11:37 AM EST 06/13/2024 3:18 PM EST us Dimas Madsen MD LAB CYTOLOGY ORDERABLES Final Result Performing Organization Address [facility] HOSPITAL Co de Phone Number [facility] [address] [place] [address], [place] [phone] * (ABNORMAL) Electrolyte panel (06/12/2024 11:59 PM EST) Only the most recent of2 resultswithin the time period is included. [facility] Sodium 128(L) 133 - 145 mmol/L LAB CHEMISTRY METHOD 06/13/2024 12:43 AM [facility] Potassium 4.5 3.5 - 5.5 mmol/L LAB CHEMISTRY METHOD 06/13/2024 12:43 AM [facility] Chloride 93(L) 96 - 110 mmol/L LAB CHEMISTRY METHOD 06/13/2024 12:43 AM [facility] CO2 24 21 - 32 mmol/L LAB CHEMISTRY METHOD 06/13/2024 12:43 AM [facility] Anion Gap 11 3 - 11 LAB CHEMISTRY METHOD 06/13/2024 12:43 AM [facility] Blood Venous blood specimen / Unknown Venipuncture / Unknown 06/12/2024 11:59 PM EST 06/13/2024 12:10 AM EST us Dimas Madsen MD LAB BLOOD ORDERABLES Final Re sult Performing Organization Address City/[facility]/ZIP Co de Phone Number [facility] [address] [place] [address], [place] [phone] * Urinalysis with reflex microscopic (06/12/2024 6:05 PM EST) Only the most recent of2 resultswithin the time period is included. [facility] Specific [place] Urine 1.014 1.003 - 1.030 LAB URINALYSIS - AUTOMATED METHOD 06/12/2024 7:05 PM EST [facility] pH, Urine 6.0 5.0 - 8.0 pH LAB URINALYSIS - AUTOMATED METHOD 06/12/2024 7:05 PM [facility] Leukocytes, Urine Negative Negative LAB URINALYSIS - AUTOMATED METHOD 06/12/2024 7:05 PM [facility] Nitrite, Urine Negative Negative LAB URINALYSIS - AUTOMATED METHOD 06/12/2024 7:05 PM [facility] Protein, Urine Negative <=Trace mg/dL LAB URINALYSIS - AUTOMATED METHOD 06/12/2024 7:05 PM [facility] Glucose, Urine Negative Negative mg/dL LAB URINALYSIS - AUTOMATED METHOD 06/12/2024 7:05 PM [facility] Ketones, Urine Negative Negative mg/dL LAB URINALYSIS - AUTOMATED METHOD 06/12/2024 7:05 PM [facility] Urobilinogen, Urine 1.0 0.2 - 1.0 mg/dL LAB URINALYSIS - AUTOMATED METHOD 06/12/2024 7:05 PM [facility] Bilirubin, Urine Negative Negative LAB URINALYSIS - AUTOMATED METHOD 06/12/2024 7:05 PM [facility] Blood, Urine Negative Negative LAB URINALYSIS - AUTOMATED METHOD 06/12/2024 7:05 PM [facility] Urine Urine specimen obtained by clean catch procedure / Unknown Non-blood Collection / Unknown 06/12/2024 6:05 PM EST 06/12/2024 6:16 PM EST us Dimas Madsen MD LAB URINE ORDERABLES Final Re sult [facility] [address] [place] [address], * Cortisol (06/12/2024 9:50 AM EST) Cortisol 42.3 mcg/dL LAB CHEMISTRY METHOD 06/12/2024 5:47 PM EST [facility] Blood Venous blood specimen / Unknown Venipuncture / Unknown 06/12/2024 9:50 AM EST 06/12/2024 10:11 AM EST [facility] - 06/12/2024 5:47 PM EST CORTISOL REFERENCE RANGE ?? 8 AM SPEC: ??5.0-23.0 mcg/dL ?? 4 PM SPEC: ??3.0-16.0 mcg/dL ?? 8 PM SPEC: ??<5.0 mcg/dL Dimas Madsen MD LAB BLOOD ORDERABLES Final Re sult Performing Organization Address [facility]/State/ZIP Co de Phone Number [facility] [address] [place] [address], * (ABNORMAL) Alpha fetoprotein tumor marker (06/05/2024 11:43 AM EST) Pathologist [facility] AFP 8.4(H) 0.0 - 8.0 ng/mL LAB CHEMISTRY METHOD 06/05/2024 5:00 PM EST [facility] Blood Venous blood specimen / Unknown Venipuncture / Unknown 06/05/2024 11:43 AM EST 06/05/2024 4:07 PM EST [facility] - 06/05/2024 5:00 PM EST The Siemens Advia Centaur Chemiluminescent Immunoassay is used. Results obtained with different assay methods or kits cannot be used interchangeably. Results cannot be interpreted as absolute evidence of the presence or absence of malignant disease. Marissa OWUSU LAB BLOOD ORDERABLES Final Re sult [facility] [address] [place] [address], * (ABNORMAL) GGT (06/05/2024 11:43 AM EST) GGT 502(H) 7 - 64 unit/L LAB CHEMISTRY METHOD 06/05/2024 4:07 PM [facility] Blood Venous blood specimen / Unknown Venipuncture / Unknown 06/05/2024 11:43 AM EST 06/05/2024 4:07 PM EST us Marissa OWUSU LAB BLOOD ORDERABLES Final Re sult Performing Organization Address City/[facility]/ZIP Co de Phone Number [facility] [address] [place] [address], [place] [phone] * (ABNORMAL) Urinalysis microscopic only (06/05/2024 10:49 AM EST) Only the most recent of2 resultswithin the time period is included. Pathologist [facility] RBC, Urine 4.2(H) 0 - 4 /HPF LAB URINALYSIS - AUTOMATED METHOD 06/05/2024 12:05 PM [facility] WBC, Urine 5.0(H) 0 - 4 /HPF LAB URINALYSIS - AUTOMATED METHOD 06/05/2024 12:05 PM [facility] Squamous Epithelial, Urine 43 0 - 60 /LPF LAB URINALYSIS - AUTOMATED METHOD 06/05/2024 12:05 PM [facility] Bacteria, Urine Negative Negative /HPF LAB URINALYSIS - AUTOMATED METHOD 06/05/2024 12:05 PM [facility] Hyaline Casts, Urine 4.8(H) 0 - 3 /LPF LAB URINALYSIS - AUTOMATED METHOD 06/05/2024 12:05 PM [facility] Urine Urine specimen obtained by clean catch procedure / Unknown Non-blood Collection / Unknown 06/05/2024 10:49 AM EST 06/05/2024 10:49 AM EST us Joseph Correia MD LAB URINE ORDERABLES Final Result [facility] [address] [place] [address], [place] [phone] * Pathologist Review Immunofixation (06/05/2024 10:49 AM EST) Only the most recent of2 resultswithin the time period is included. Pathologist Interpretation Reviewed by Sydnie Bar MD 06/06/2024 12:26 PM EST [facility] Blood Venous blood specimen / Unknown Venipuncture / Unknown 06/05/2024 10:49 AM EST 06/05/2024 10:49 AM EST us Joseph Correia MD LAB BLOOD ORDERABLES Final Result Performing Organization Address [facility] Phone Number [facility] [address] [place] [address], [place] [phone] * Protein and creatinine with ratio, urine (06/05/2024 10:49 AM EST) Only the most recent of2 resultswithin the time period is included. Protein, Urine 9 mg/dL LAB CHEMISTRY METHOD 06/05/2024 2:23 PM [facility] Prot/Creat, Ur 0.10 <=0.20 mg/mg creat LAB CHEMISTRY METHOD 06/05/2024 2:23 PM EST [facility] Creatinine, Urine 90.0 mg/dL LAB CHEMISTRY METHOD 06/05/2024 2:23 PM EST [facility] Urine Urine specimen obtained by clean catch procedure / Unknown Non-blood Collection / Unknown 06/05/2024 10:49 AM EST 06/05/2024 10:49 AM EST us Joseph Correia MD LAB URINE ORDERABLES Final Result Performing Organization Address [facility] de Phone Number [facility] [address] [place] [address], [place] [phone] * Microalbumin creatinine urine ratio (06/05/2024 10:49 AM EST) Only the most recent of2 resultswithin the time period is included. Creatinine, Urine 90.0 mg/dL LAB CHEMISTRY METHOD 06/05/2024 2:23 PM [facility] Microalb, Ur 8.6 0.0 - 29.0 mg/L LAB CHEMISTRY METHOD 06/05/2024 2:23 PM EST [facility] Microalb/Creat Ratio 10 <30 mg/g creat LAB CHEMISTRY METHOD 06/05/2024 2:23 PM [facility] Urine Urine specimen obtained by clean catch procedure / Unknown Non-blood Collection / Unknown 06/05/2024 10:49 AM EST 06/05/2024 10:49 AM EST Joseph Correia MD LAB URINE ORDERABLES Final Result [facility] [address] [place] [address], [place] [phone] * Immunofixation electrophoresis serum (06/05/2024 10:49 AM EST) Only the most recent of2 resultswithin the time period is included. Pathologist [facility] Immunofixation Result, Serum No monoclonal immunoglobulins detected. LAB CHEMISTRY METHOD 06/06/2024 12:26 PM EST [facility] Blood Venous blood specimen / Unknown Venipuncture / Unknown 06/05/2024 10:49 AM EST 06/05/2024 10:49 AM EST us Joseph Correia MD LAB BLOOD ORDERABLES Final Result [facility] [address] [place] [address], [place] [phone] * Immunoglobulins IgG, IgA, IgM (06/05/2024 10:49 AM EST) Only the most recent of2 resultswithin the time period is included. Total IgG 993 549 - 1,584 mg/dL LAB CHEMISTRY METHOD 06/06/2024 10:07 AM EST [facility] IgA 314 61 - 348 mg/dL LAB CHEMISTRY METHOD 06/06/2024 10:07 AM EST [facility] IgM 120 23 - 259 mg/dL LAB CHEMISTRY METHOD 06/06/2024 10:07 AM EST [facility] Blood Venous blood specimen / Unknown Venipuncture / Unknown 06/05/2024 10:49 AM EST 06/05/2024 10:49 AM EST us Michael Kumar MD LAB BLOOD ORDERABLES Final Result [facility] [address] [place] [address], [place] [phone] * MR Abdomen wo Contrast (05/28/2024 9:31 AM EST) Anatomical Region Laterality Modality Body Magnetic Resonan ce 05/29/2024 3:15 PM EST Impressions 05/29/2024 3:25 PM EST 1. ??Cirrhosis, splenomegaly, and moderate ascites. ??The ascites has mildly increased compared with the previous study. 2. ??Evaluation for hepatocellular carcinoma is limited in the absence of contrast. ??There is an ill-defined T2 hyperintense lesion in the inferior right hepatic lobe which is also visible on the diffusion-weighted sequence. ??Further characterization would require multiphasic contrast enhanced CT or MRI. -------- FINAL REPORT -------- Dictated By: Hansel Dias Dictated Date: 05/29/2024 15:15 ET Assigned Physician: Hansel Dias Reviewed and Electronically Signed By: Hansel Dias Signed Date: 05/29/2024 15:25 ET Workstation ID: [id number] Transcribed By: Self Edit Transcribed Date: 05/29/2024 15:15 ET Narrative 05/29/2024 3:25 PM EST PROCEDURE: Noncontrast MRI of the abdomen. HISTORY: Liver disease, chronic, HCC screening. TECHNIQUE: Multiplanar multisequence MRI of the abdomen without intravenous contrast administration. COMPARISON: Abdominal ultrasound 04/14/2024. ??CT 04/14/2024. FINDINGS: LOWER THORAX: Moderate hiatal hernia. ??Upper normal heart size. LIVER: Nodular contour, compatible with the provided history of cirrhosis. Assessment for liver lesions is limited in the absence of intravenous contrast. ??Ill- defined T2 hyperintense lesion in the inferior right hepatic lobe measuring 1.8 cm (series 5, image 17). ??This lesion is also evident on the diffusion sequence. ?? No evidence of steatosis on out of phase imaging. ?? BILIARY: Normal gallbladder. ??Normal caliber biliary tree. ??No ductal dilatation or filling defect. PANCREAS: No focal lesion. ??No ductal dilatation. SPLEEN: Enlarged, measuring 13.7 cm craniocaudal. ADRENAL GLANDS: Normal. KIDNEYS: Left nephrectomy. ??Multiple simple appearing right renal cortical cysts. ??Visible portions of the right collecting system are normal. RETROPERITONEUM: No mass or lymphadenopathy. VASCULATURE: No aneurysm. BOWEL/MESENTERY: Moderate paraesophageal hiatal hernia containing mesenteric fat and ascites, similar to the previous study. ??Moderate ascites, increased compared with the 04/14/2024 comparison study. ABDOMINAL WALL: Visible portions are normal. BONES: Mild degenerative changes of the spine. ??No visible bony lesion. Procedure Note Hansel Dias MD - 05/29/2024 PROCEDURE: Noncontrast MRI of the abdomen. HISTORY: Liver disease, chronic, HCC screening. TECHNIQUE: Multiplanar multisequence MRI of the abdomen withoutintravenous contrast administration. COMPARISON: Abdominal ultrasound 04/14/2024. CT 04/14/2024. FINDINGS: LOWER THORAX: Moderate hiatal hernia. Upper normal heart size. LIVER: Nodular contour, compatible with the provided history of cirrhosis.Assessment for liver lesions is limited in the absence of intravenouscontrast. Ill-defined T2 hyperintense lesion in the inferior righthepatic lobe measuring 1.8 cm (series 5, image 17). This lesion is alsoevident on the diffusion sequence. No evidence of steatosis on out ofphase imaging. BILIARY: Normal gallbladder. Normal caliber biliary tree. No ductaldilatation or filling defect. PANCREAS: No focal lesion. No ductal dilatation. SPLEEN: Enlarged, measuring 13.7 cm craniocaudal. ADRENAL GLANDS: Normal. KIDNEYS: Left nephrectomy. Multiple simple appearing right renal corticalcysts. Visible portions of the right collecting system are normal. RETROPERITONEUM: No mass or lymphadenopathy. VASCULATURE: No aneurysm. BOWEL/MESENTERY: Moderate paraesophageal hiatal hernia containingmesenteric fat and ascites, similar to the previous study. Moderateascites, increased compared with the 04/14/2024 comparison study. ABDOMINAL WALL: Visible portions are normal. BONES: Mild degenerative changes of the spine. No visible bony lesion. IMPRESSION: 1. Cirrhosis, splenomegaly, and moderate ascites. The ascites has mildlyincreased compared with the previous study. 2. Evaluation for hepatocellular carcinoma is limited in the absence ofcontrast. There is an ill-defined T2 hyperintense lesion in the inferiorright hepatic lobe which is also visible on the diffusion-weightedsequence. Further characterization would require multiphasic contrastenhanced CT or MRI. -------- FINAL REPORT -------- Dictated By: Hansel Dias Dictated Date: 05/29/2024 15:15 ET Assigned Physician: Hansel Dias Reviewed and Electronically Signed By: Hansel Dias Signed Date: 05/29/2024 15:25 ET Workstation ID: [id number] Transcribed By: Self Edit Transcribed Date: 05/29/2024 15:15 ET us Marissa OWUSU IMG MRI PROCEDURES Final Resu lt * (ABNORMAL) [place]-lambda free light chains, quantitative (05/09/2024 10:25 AM EST) [place] Free Light Chain 5.26(H) 0.33 - 1.94 mg/dL 05/13/2024 9:32 AM EST [facility] Lambda Free Light Chain 2.75(H) 0.57 - 2.63 mg/dL 05/13/2024 9:[address] [facility] [place]/Lambda FLC Ratio 1.91(H) 0.26 - 1.65 05/13/2024 9:32 AM EST [facility] Comment: Test performed at [facility], [address], [place], [place] ??[address] ? [phone] Flores Modi MD, PhD - Director Of Medical Education Blood Venous blood specimen / Unknown Venipuncture / Unknown 05/09/2024 10:25 AM EST 05/09/2024 10:25 AM EST Joseph Correia MD LAB BLOOD ORDERABLES Final Result [facility] [address] [place] [address] * Urea nitrogen, urine (05/09/2024 10:25 AM EST) Urea Nitrogen, Ur 790 mg/dL LAB CHEMISTRY METHOD 05/09/2024 2:10 PM EST [facility] Urine Urine specimen obtained by clean catch procedure / Unknown Non-blood Collection / Unknown 05/09/2024 10:25 AM EST 05/09/2024 10:25 AM EST Joseph Correia MD LAB URINE ORDERABLES Final Result [facility] [address] [place] [address], * Creatinine, urine, random (05/09/2024 10:25 AM EST) Creatinine, Urine 127.0 mg/dL LAB CHEMISTRY METHOD 05/09/2024 2:10 PM EST [facility] Urine Urine specimen obtained by clean catch procedure / Unknown Non-blood Collection / Unknown 05/09/2024 10:25 AM EST 05/09/2024 10:25 AM EST us Joseph Correia MD LAB URINE ORDERABLES Final Result Performing Organization Address [facility]/ZIP Co de Phone Number [facility] [address] [place] [address], [place] [phone] * Vitamin D 25 hydroxy (05/09/2024 10:25 AM EST) Vit D, 25-Hydroxy 53.9 30.0 - 80.0 ng/mL LAB CHEMISTRY METHOD 05/09/2024 1:02 PM EST [facility] Blood Venous blood specimen / Unknown Venipuncture / Unknown 05/09/2024 10:25 AM EST 05/09/2024 10:25 AM EST us Joseph Correia MD LAB BLOOD ORDERABLES Final Result Performing Organization Address [facility] Co de Phone Number [facility] [address] [place] [address], [place] [phone] * Parathyroid hormone intact (05/09/2024 10:25 AM EST) [facility] PTH 40.2 18.5 - 88.0 pcg/mL LAB CHEMISTRY METHOD 05/09/2024 1:02 PM EST [facility] Blood Venous blood specimen / Unknown Venipuncture / Unknown 05/09/2024 10:25 AM EST 05/09/2024 10:25 AM EST us Joseph Correia MD LAB BLOOD ORDERABLES Final Result Performing Organization Address City/[facility]/ZIP Co de Phone Number [facility] [address] [place] [address], [place] [phone] * (ABNORMAL) Vitamin B12 and folate (04/29/2024 6:36 AM EST) Pathologist [facility] Vitamin B-12 346 250 - 900 pcg/mL LAB CHEMISTRY METHOD 04/29/2024 2:00 PM EST [facility] Folate >20.0(H) 2.8 - 17.0 ng/ml LAB CHEMISTRY METHOD 04/29/2024 2:00 PM EST [facility] Blood Venous blood specimen / Unknown Venipuncture / Unknown 04/29/2024 6:36 AM EST 04/29/2024 7:00 AM EST Aleyda OWUSU LAB BLOOD ORDERABLES Final Result [facility] [address] [place] [address], [place] [phone] * Iron and TIBC (04/29/2024 6:36 AM EST) Iron 56 50 - 160 mcg/dL LAB CHEMISTRY METHOD 04/29/2024 1:38 PM [facility] TIBC 269 250 - 450 mcg/dL LAB CHEMISTRY METHOD 04/29/2024 1:38 PM [facility] Iron Saturation 21 20 - 50 % LAB CHEMISTRY METHOD 04/29/2024 1:38 PM EST [facility] Blood Venous blood specimen / Unknown Venipuncture / Unknown 04/29/2024 6:36 AM EST 04/29/2024 7:00 AM EST Aleyda OWUSU LAB BLOOD ORDERABLES Final Result [facility] [address] [place] [address], [place] [phone] * Ferritin (04/29/2024 6:36 AM EST) Ferritin 84 26 - 388 ng/mL LAB CHEMISTRY METHOD 04/29/2024 2:00 PM EST [facility] Blood Venous blood specimen / Unknown Venipuncture / Unknown 04/29/2024 6:36 AM EST 04/29/2024 7:00 AM EST Aleyda OWUSU LAB BLOOD ORDERABLES Final Result Performing Organization Address [facility] Co de Phone Number [facility] [address] [place] [address], [place] [phone] * Prostate specific antigen screen (04/28/2024 8:46 AM EST) PSA 0.74 0.00 - 4.00 ng/mL LAB CHEMISTRY METHOD 04/28/2024 11:35 AM EST [facility] Blood Venous blood specimen / Unknown Venipuncture / Unknown 04/28/2024 8:46 AM EST 04/28/2024 8:46 AM EST Narrative [facility] - 04/28/2024 11:35 AM EST The Siemens Advia Centaur Chemiluminescent Immunoassay is used. Results obtained with different assay methods or kits cannot be used interchangeably. Results cannot be interpreted as absolute evidence of the presence or absence of malignant disease. Michael Kumar MD LAB BLOOD ORDERABLES Final Result Performing Organization Address [facility] Co de Phone Number [facility] [address] [place] [address], [place] [phone] * (ABNORMAL) Thyroid stimulating hormone with reflex to free t4 and free t3 (04/28/2024 8:46 AM EST) TSH 8.46(H) 0.40 - 4.00 mcIU/mL LAB CHEMISTRY METHOD 04/28/2024 11:29 AM EST [facility] Blood Venous blood specimen / Unknown Venipuncture / Unknown 04/28/2024 8:46 AM EST 04/28/2024 8:46 AM EST Michael Kumar MD LAB BLOOD ORDERABLES Final Result Performing Organization Address City/[facility]/ZIP Co de Phone Number [facility] [address] [place] [address], [place] [phone] * Free thyroxine with reflex to free triiodothyronine (04/28/2024 8:46 AM EST) Pathologist [facility] Free T4 1.30 0.70 - 1.80 ng/dL LAB CHEMISTRY METHOD 04/28/2024 11:54 AM EST [facility] Blood Venous blood specimen / Unknown Venipuncture / Unknown 04/28/2024 8:46 AM EST 04/28/2024 8:46 AM EST Michael Kumar MD LAB BLOOD ORDERABLES Final Result Performing Organization Address [facility] de Phone Number [facility] [address] [place] [address], [place] [phone] * Hepatitis panel, acute with reflex to confirmation (04/28/2024 8:46 AM EST) [facility] Hepatitis B Surface Ag Negative Negative LAB CHEMISTRY METHOD 04/28/2024 12:15 PM EST [facility] Hepatitis A Antibody IgM Negative Negative LAB CHEMISTRY METHOD 04/28/2024 12:15 PM EST [facility] Hep B Core IgM Negative Negative LAB CHEMISTRY METHOD 04/28/2024 12:15 PM EST [facility] Hepatitis C Antibody Negative Negative LAB CHEMISTRY METHOD 04/28/2024 12:15 PM EST [facility] Blood Venous blood specimen / Unknown Venipuncture / Unknown 04/28/2024 8:46 AM EST 04/28/2024 8:46 AM EST us Michael Kumar MD LAB BLOOD ORDERABLES Final Result Performing Organization Address [facility]/ZIP Co de Phone Number [facility] [address] [place] [address], [place] [phone] * Triiodothyronine free (04/28/2024 8:46 AM EST) T3, Free 241 230 - 420 pcg/dL LAB CHEMISTRY METHOD 04/30/2024 2:49 PM [facility] Blood Venous blood specimen / Unknown Venipuncture / Unknown 04/28/2024 8:46 AM EST 04/28/2024 8:46 AM EST us Michael Kumar MD LAB BLOOD ORDERABLES Final Result [facility] [address] [place] [address], [place] [phone] * (ABNORMAL) Hepatic function panel (04/28/2024 8:46 AM EST) Pathologist [facility] Total Protein 6.9 6.0 - 8.0 g/dL LAB CHEMISTRY METHOD 04/28/2024 11:20 AM [facility] Albumin 3.8 3.2 - 5.0 g/dL LAB CHEMISTRY METHOD 04/28/2024 11:20 AM [facility] Total Bilirubin 0.9 0.0 - 1.4 mg/dL LAB CHEMISTRY METHOD 04/28/2024 11:20 AM [facility] Bilirubin, Direct 0.3 0.0 - 0.3 mg/dL LAB CHEMISTRY METHOD 04/28/2024 11:20 AM [facility] Bilirubin, Indirect 0.6 0.0 - 1.1 mg/dL LAB CHEMISTRY METHOD 04/28/2024 11:20 AM [facility] ALT (SGPT) 34 10 - 60 unit/L LAB CHEMISTRY METHOD 04/28/2024 11:20 AM [facility] AST (SGOT) 29 10 - 42 unit/L LAB CHEMISTRY METHOD 04/28/2024 11:20 AM [facility] Alkaline Phosphatase 246(H) 42 - 121 unit/L LAB CHEMISTRY METHOD 04/28/2024 11:20 AM EST [facility] Blood Venous blood specimen / Unknown Venipuncture / Unknown 04/28/2024 8:46 AM EST 04/28/2024 8:46 AM EST Michael Kumar MD LAB BLOOD ORDERABLES Final Result Performing Organization Address City/[facility]/ZIP Co de Phone Number [facility] [address] [place] [address], [place] [phone] * (ABNORMAL) Hemoglobin A1c (02/13/2024 8:29 AM EST) [facility] Hemoglobin A1C 7.0(H) <6.5 % LAB CHEMISTRY METHOD 02/14/2024 12:19 PM EST [facility] Mean Bld Glu Estim. 154 mg/dL LAB CHEMISTRY METHOD 02/14/2024 12:19 PM EST [facility] Blood Venous blood specimen / Unknown Venipuncture / Unknown 02/13/2024 8:29 AM EST 02/13/2024 8:29 AM EST Michael Kumar MD LAB BLOOD ORDERABLES Final Result Performing Organization Address [facility]/ZIP Co de Phone Number [facility] [address] [place] [address], [place] [phone] * Lipid panel (10/15/2023) [facility] LDL/HDL Ratio 3 0 - 4 Triglycerides 131 0 - 150 mg/dL Cholesterol 154 0 - 200 mg/dL HDL 58 >=40 mg/dL LDL Cholesterol 70 0 - 100 mg/dL Blood Venous blood specimen / Unknown Oscar Ludwig MD LAB BLOOD ORDERABLES Jessa l Result * Hm [place] Risk Assessment (12/26/2022) Falls Risk Assessment abstracted us Historical Provider HEALTH MAINTENANCE Final Result * Depression Screening (12/26/2022) Depression Screening abstracted Historical Provider HEALTH MAINTENANCE Final Result from Last 3 Months or Most Recently Relevant to Health Maintenance Insurance MEDICARE MEDICAID [place] Advance Directives Documents on File Type Date 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 Do not modify or discontinue any currently active code status orders. * Full Code - Default Date Activated Date Inactivated Comments 07/14/2024 11:30 AM 07/14/2024 2:25 PM This is order is used when code status has not been discussed with the patient, or code status is otherwise unknown/unconfirmed To update the patient's code status, place a code status order. Do not modify or discontinue any currently active code status orders. * No CPR/Do Not Intubate Date Activated Date Inactivated Comments 07/07/2024 4:11 PM 07/10/2024 7:48 PM This code sta tus was ascertained in the following way: Code status discussion: discussion with patient To update the patient's code status, place a code status order. Do not modify or discontinue any currently active code status orders. * Full Code - Default Date Activated Date Inactivated Comments 07/07/2024 4:05 PM 07/07/2024 4:11 PM This is orde r is used when code status has not been discussed with the patient, or code status is otherwise unknown/unconfirmed To update the patient's code status, place a code status order. Do not modify or discontinue any currently active code status orders. * Full Code - Default Date Activated Date Inactivated Comments 06/30/2024 5:19 PM 07/02/2024 7:38 PM This is orde r is used when code status has not been discussed with the patient, or code status is otherwise unknown/unconfirmed To update the patient's code status, place a code status order. Do not modify or discontinue any currently active code status orders. Healthcare Agents on File Name Relationship [facility] Brandy Mateus Daughter Health Care Agent Corie Mariah Grandchild First Alterna te Health Care Agent Care Teams Advanced Practice Nurse Psychotherapist Relationship Specialty Start Date End Date Michael Kumar MD [address] [place] [address] PCP - General Internal Medicine 09/09/21
[2024-07-20 09:05] LABS: Basophils Absolute Auto 0.1 X10*3/uL (0.0-0.2); Basophils Percent Auto 0.5 % (0-2); Eosinophils Absolute Auto 0.3 X10*3/uL (0.0-0.4); Eosinophils Percent Auto 1.6 % (0-4); Hematocrit 22.1 % (42.0-52.0); Imm Gran Abs Auto 0.31 X10*3/uL (0.00-0.03); Imm Gran Pct Auto 1.6 % (0.0-0.4); Lymphocytes Absolute Auto 6.6 X10*3/uL (1.2-4.9); Lymphocytes Percent Auto 33.3 % (20-40); MANUAL DIFF FLAG SCAN; Mean Corpuscular HGB Conc 31.7 g/dl (31.0-36.0); Mean Corpuscular Hemoglobin 30.6 pg (27.0-33.0); Mean Corpuscular Volume 96.5 fL (80.0-98.0); Mean Platelet Volume 11.6 fL (9.4-12.4); Monocytes Absolute Auto 2.3 X10*3/uL (0.1-1.2); Monocytes Percent Auto 11.4 % (2-11); Neutrophils Absolute Auto 10.2 x10*3/uL (2.0-8.3); Neutrophils Percent Auto 51.6 % (45-73); Platelet Count 80 X10*3/uL (160-400); Red Blood Count 2.29 X10*6/uL (4.60-5.80); Red Cell Distribution Width 17.2 % (11.0-16.0); SCAN SMEAR FLAG 1; White Blood Count 19.8 X10*3/uL (4.8-10.8)
--- OUTSIDE RECORDS SUMMARY | 2024-07-20 09:05 | XMS_ITS | Encounter Summary ---
Author Organization [facility] Address [address] [place] [address] Care Team Providers Care Bandsaw Operator Name Role Phone Michael Kumar MD Primary Care Provider [phone] Reason for Visit * Reason Onset Date Comments VNA 06/17/2024 Encounter Details Date Type Department Care Team (Late st Contact Info) Description 06/17/2024 Telephone Adult Medicine [address] [phone] Divya Lindsey MA VNA Social History Tobacco Use Types Packs/Day Years Used Date Smoking Tobacco: Former Smokeless Tobacco: Never Alcohol Use Standard Drinks/Week Comments No 0 [...] Record ed Within the last 3 months, anne-marie villafuerte many times did you visit the emergency [...] care for your loved ones. For example, children's ministries director or elderly care for an older adult? [...] Orientation Straight 05/16/2024 9: 36 AM EST documented as of this encounter Functional Status * Are you deaf or do you have serious difficulty hearing? Answer Date of Assessment Author No 06/12/2024 7:22 PM Shiloh Man RN * Are you blind or do you have serious difficulty seeing, even when wearing glasses? Answer Date of Assessment Author No 06/12/2024 7:22 PM Shiloh Man RN * Do you have serious difficulty walking or climbing stairs? Answer Date of Assessment Author Yes 06/12/2024 7:22 PM Shiloh Man RN * Do you have serious difficulty dressing or bathing? Answer Date of Assessment Author Yes 06/12/2024 7:22 PM Shiloh Man RN * Because of a physical, mental, or emotional condition, do you have serious difficulty doing errandsalone such as visiting the doctor? Answer Date of Assessment Author No 06/12/2024 7:22 PM Shiloh Man RN documented as of this encounter Mental Status * Because of a physical, mental, or emotional condition, do you have serious difficulty concentrating, remembering, or making decisions? (5 years old or older) Answer Entry Date Author No 06/12/2024 7:22 PM Shiloh Man RN documented in this encounter Progress Notes * Brando Marie LPN - 06/17/2024 12:24 PM EDT Vo were given yesterday for Nursing PT and OT Jordan * Divya Lindsey MA - 06/17/2024 11:27 AM EDT VNA CALL Which VNA office is calling? [facility] Full name of caller: JORDAN MCCRAYSHANESERENA The caller is A nurse Is the caller at the patients home?: no Reason for call: patient reported a fall outside of his home on 06/15/24 when coming home from the hospital. Also Referral needed for physical therapy. Does caller need an urgent call back? no Was CONTACT Telephone # obtained above?: yes Fax #: [phone] documented in this encounter Plan of Treatment Upcoming Encounters Date Type Department Care Team (Late st Contact Info) Description 07/21/2024 10:30 AM EDT Appointment [facility] Ultrasound [address] [place] [phone] 08/18/2024 10:30 AM EDT Office Visit Gastroenterology - [place] [address] [facility] [address] [facility] [address] [place] [phone] Marissa Roberts PA [address] [facility] [address] [place], [place] [phone] 09/08/2024 9:30 AM EDT Office Visit [facility] Hematology Oncology [address] [place] [address] Stevenson Carson MD [address] [place] [address] documented as of this encounter Visit Diagnoses Not on filedocumented in this encounter Additional Health Concerns Infection Onset Date Last Indicated Resolved Time Respiratory Rule-Out 06/23/2024 06/23/2024 025 3:16 PM EDT COVID-19 Rule-Out 06/23/2024 06/23/2024 06/23/2024 3:16 PM EDT Gastrointestinal Rule-Out 06/30/2024 07/01/2024 4:40 AM EDT C. Diff Rule-Out Infection 06/30/2024 07/01/2024 0 07/01/2024 3:56 AM EDT Respiratory Rule-Out 07/07/2024 07/07/2024 025 9:06 PM EDT COVID-19 Rule-Out 07/07/2024 07/07/2024 07/07/2024 9:06 PM EDT Respiratory Rule-Out 07/14/2024 07/15/2024 025 3:44 AM EDT Assessment Noted Time PHQ-9 Depression Total Score: 5 03/03/20 9:45 AM EST documented as of this encounter Care Teams Bandsaw Operator Relationship Specialty Start Date End Date Michael Kumar MD [address] [place] [address] PCP - General Internal Medicine 09/09/21 documented as of this encounter
--- OUTSIDE RECORDS SUMMARY | 2024-07-20 09:05 | XMS_ITS | Encounter Summary ---
Author Organization [facility] Address [address] [place] [address] Care Team Providers [facility] [employer] Name Role Phone Michael Kumar MD Primary Care Provider [phone] Reason for Visit * Reason Comments Labs Only * Auth/Cert (Routine) Specialty Diagnoses / Procedures Referred By Contshai t Referred To Contact Diagnoses Hyponatremia Procedures . Martir Marques MD [address] [place] [address] Phone: tel: fax: [facility] Emergency [address] [place] [address] Phone: tel: Referral ID Status Reason Start Date Expiration Date Visits Re quested Visits Authorized [id number] 1 1 Encounter Details Date Type Department Care Team (Latest Contact Info) Description 07/14/2024 9:00 AM EDT - 07/17/2024 6:33 PM EDT Hospital Encounter [facility] Medical Surgical Unit [address] [place] [address] Edi Shipman, [address] [place] [address] Chase Courtney MD [address] [place] [address] Gigi Maxwell MD [address] [place] [address] Other ascites (Primary Dx); Hyponatremia; Acute renal failure superimposed on chronic kidney disease, unspecified acute renal failure type, unspecified CKD stage (CMS/HCC V24) Discharge Disposition: Retirement Facility Social History Tobacco Use Types Packs/Day Years [...] for your loved ones. For example, child daycare worker or elderly care for an older adult? [...] AM EST documented as of this encounter Last Filed Vital Signs Vital Sign Reading [...] Mass Index 24.64 07/17/2024 1:38 PM EDT documented in this encounter Functional Status * Are you deaf or do you have serious difficulty hearing? Answer Date of Assessment Author No 06/12/2024 7:22 PM EST Shiloh Krause RN * Are you blind or do [...] Shiloh Man RN documented in this encounter Discharge Summaries * Gigi Maxwell MD - 07/17/2024 2:43 PM EDT Images from the original note were not included. [place] DISCHARGE SUMMARY Patient Information Greyson Balderrama : 1945 [79 y.o.] Admitting Provider Gigi Maxwell MD Discharge Provider Riley Hinson MD, Gigi Maxwell, * Primary Care Physician Michael Kumar MD Admission Date 07/14/2024 Discharge Date 07/17/2024 Summary of Hospital Problems Primary Discharge Diagnosis: Hyponatremia Decompensated cirrhosis UTI LJ on CKD stage III Secondary Discharge Diagnosis: Type 2 diabetes Nonalcoholic cirrhosis Leukocytosis Discharge Destination: detention facility Code Status at Discharge: DNR/DNI Hospital Course Summary As taken from the history and physical: This is an 79-year-old Slovenian speaking male past medical history significant for 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 On routine labs this morning he was noted to have hyponatremia, LJ and leukocytosis. At time of interview patient denies acute complaints. Denies fever, chills, focal weakness, headache, lightheadedness, dizziness, shortness of breath, cough, chest pain, abdominal pain, nausea, vomiting, diarrhea, constipation, dysuria or hematuria. Upon H&P patient is afebrile, heart rate 80, respiratory rate 18, blood pressure 117/61, oxygensaturation 100% on room air. Labs performed revealing WBC 16.6 with H&H 10.3/29.7, platelets 28, neutrophils 12.33, sodium 119 with chloride 90, CO2 16 with anion gap 13, BUN 69 with creatinine 2.86, AST 110 with ALT 147, alkaline phosphatase 939, albumin 2.8. Patient underwent scheduled paracentesis with interventional radiology and care subsidy transferred to medical service for further evaluation and treatment. The patient was then admitted to medicine for further evaluation and treatment. The following issues were addressed: Patient is an 79-year-old Slovenian speaking male with a history of nonalcoholic decompensated cirrhosis, coronary disease, poorly controlled diabetes hypertension, hyperlipidemia CKD, hypothyroidism MOLST among further who presented to the hospital from the senior living facility secondary to abnorm al labs showing severe hyponatremia, leukocytosis and LJ on CKD. The patient was evaluated in the ED, he was given IV albumin and started on his chronic medication, he was admitted to medicine for further evaluated no mental status changes symptoms of hyponatremia were observed. Hyponatremia No significant symptoms, most likely due to decompensated cirrhosis. Discussed with renal, patient is on chronic diuretic, has recurrent ascites, he states he is compliant with fluid restriction. Will need to continue aggressive fluid restriction, nephrology saw the patient and started treatment with sodium bicarbonate and urea. Sodium level has stabilized, unable to continue urea given elevated BUN, will continue sodium bicarbonate . Currently appears to be asymptomatic. LJ on CKD Likely hypoperfusion, possible cardiorenal, he also has chronic metabolic acidosis. The patient hasbeen recently of diuretics given his declining renal function, the patient was given IV albumin andhis renal function has improved getting closer to the baseline, patient will continue fluid restriction, patient will need colloid replacement following his scheduled paracentesis. The patient has persistent metabolic acidosis and he was started on sodium bicarbonate, I spoke to nephrology, he willcontinue oral sodium bicarbonate as it is believed that the risk-benefit ratio is favorable in thiscase. Leukocytosis/UTI, intermittent, white cell count has been fluctuating during recent admission, afebrile, he has similar white cell count a week ago and improved without intervention, today the patient complains of hesitancy and difficulty voiding, his UA does show some pyuria, patient was started on ceftriaxone, he will complete a 7-day course of antibiotics. Decompensated cirrhosis Patient has ascites, hypertension, splenomegaly, thrombocytopenia. Patient getting regular paracentesis, no signs of bleeding. Patient appears to have subclinical encephalopathy, monitor. Goals of care. I had multiple discussions with the patient, his daughter Nikky and his granddaughter Corie. Icommunicated the overall poor prognosis to the patient's family and they are fully aware, the patient however has a strong amish beliefs and he expects to have some improvement, at some point, the patient seemed to be open to have an informational hospice meeting, however, she shortly after spoke to her family and changed his mind, will continue current management. Will continue to reassess goals of care regularly. Providers consulted: Sonido Nunez MD, neurology technologist Procedures done: XR Chest 1 View Final Result FINDINGS/IMPRESSION: Hypoventilatory examination. Volume loss at the lung bases. Possible hiatal hernia. Patchy right upper lobe opacity could represent infiltrate or scarring. Prominent bulla at theleft apex. -------- FINAL REPORT -------- Dictated By: Lance John Dictated Date: 07/14/2024 15:44 ET Assigned Physician: Lance John Reviewed and Electronically Signed By: Lance John Signed Date: 07/14/2024 15:46 ET Workstation ID: [id number] Transcribed By: Self Edit Transcribed Date: 07/14/2024 15:44 ET US Paracentesis w Image Guidance Final Result Successful paracentesis of 5 L of ascitic fluid without complications. -------- FINAL REPORT -------- Dictated By: Roxanna Murguia Dictated Date: 07/14/2024 15:20 ET Assigned Physician: Junaid Kuhn Reviewed and Electronically Signed By: Junaid Kuhn Signed Date: 07/14/2024 16:38 ET Workstation ID: [id number] Transcribed By: Self Edit Transcribed Date: 07/14/2024 15:20 ET Resident/PA/LINOTYPIST: Roxanna Murguia Condition upon discharge Patient was interviewed with our in-house Slovenian door puller Dottie. Patient denies any pain, he has been voiding freely, however, this morning he experienced some difficulty and hesitancy, no actual dysuria. No fever or chills, no flank pain, no nausea no vomiting, appetite is fair, he has been compliant with fluid restriction, no peripheral edema, no mental statuschanges, I met with the patient and his daughter Brandy at bedside Visit Vitals BP 99/52 (BP Location: Right arm, Patient Position: Lying) Pulse 80 Temp 36.6 ??C (97.8 ??F) (Temporal) Resp 20 Temp (24hrs), Av.6 ??C (97.8 ??F), Min:36.2 ??C (97.1 ??F), Max:37.2 ??C (99 ??F) Gen: Elderly male, chronically ill-appearing, pleasant and cooperative, NAD, temporal muscle wasting, pale CV -RRR no MGR Lungs -CTAB Abd - Soft, non-tender, mildly distended, tympanic, no significant residual ascites Extremities - No LE edema Neuro - AO x3, mild asterixis, no focal weakness, speech is clear, . Body mass index is 24.64 kg/m??. No results found for: PTWT , PTHT 45 Minutes were spent in patient care including adpy-sa-asny time, chart review, discussion with providers, documentation, linseed oil order filler. Moderate complexity medical decision making. This note was written using [employer] speech recognition software which is prone to typographical errors. If questions occur please do not hesitate to call this provider. Follow-Up Instructions and Recommendations [address] [address] Discharge Procedure Orders Discharge Diet: 1000 mL per day; Return to previous diet Order Specific Question Answer Comments Restrict your fluid intake to 1000 mL per day General Instructions for your diet at home Return to previous diet No restrictions, resume your usual activities There are no outpatient Patient Instructions on file for this admission. Discharge Medications Your medication list START taking these medications Instructions Last Dose Given Next Dose Due cefpodoxime 200 mg tablet Commonly known as: VANTIN Start taking on: July 18, 2024 Take 1 tablet (200 mg total) by mouth 1 (one) time each day for 7 days. sodium bicarbonate 650 mg tablet Take 1 tablet (650 mg total) by mouth 2 (two) times a day. CONTINUE taking these medications Instructions Last Dose Given Next Dose Due aspirin 81 mg EC tablet Take 1 tablet (81 mg total) by mouth 1 (one) time each day. BD Ultra-Fine Short Pen Needle 31 gauge x 5/16 needle Generic drug: pen needle, diabetic Insulin injection, Subcutaneous twice a day folic acid 1 mg tablet Commonly known as: FOLVITE TAKE 1 TABLET BY MOUTH EVERY DAY gabapentin 100 mg capsule Commonly known as: NEURONTIN Take 1 capsule (100 mg total) by mouth 2 (two) times a day. glucose blood test strip Use as instructed Blood sugar checks 2-4 times a day insulin aspart 100 unit/mL injection Commonly known as: NovoLOG Inject 2-14 Units under the skin 3 (three) times a day before meals. -Administer within 5 minutes of a meal. BG 100 mg/dl or less 0 units, 101-150= 2 units, 151- 200=6 units, 201-250=8 units, 251-300=10 units, 301-350=12, 351-400=14 units insulin degludec 200 unit/mL (3 mL) CONCENTRATED injection pen Commonly known as: Tresiba FlexTouch U-200 Inject 20 Units under the skin at bedtime. lactulose solution Commonly known as: CHRONULAC Take 30 mL (20 g total) by mouth 3 (three) times a day for 14 days. midodrine 10 mg tablet Commonly known as: PROAMATINE Take 1 tablet (10 mg total) by mouth 3 (three) times a day before meals. omeprazole OTC 20 mg EC tablet Commonly known as: PriLOSEC OTC Take 1 tablet (20 mg total) by mouth 1 (one) time each day. Do not crush, chew, or split. ondansetron 4 mg tablet Commonly known as: ZOFRAN Take 1 tablet (4 mg total) by mouth every 12 (twelve) hours if needed for nausea or vomiting. rifAXIMin 550 mg tablet Commonly known as: XIFAXAN Take 1 tablet (550 mg total) by mouth 2 (two) times a day. sucralfate 1 gram tablet Commonly known as: Carafate Take 1 tablet (1 g total) by mouth 3 (three) times a day with meals. Synthroid 125 mcg tablet Generic drug: levothyroxine Take 1 tablet (125 mcg total) by mouth 1 (one) time each day. tamsulosin 0.4 mg 24 hr capsule Commonly known as: FLOMAX Take 1 capsule (0.4 mg total) by mouth 1 (one) time each day. Capsules should be taken 30 minutes following the same meal each day. Where to Get Your Medications These medications were sent to [facility]/pharmacy #[id number] [place] [address] cefpodoxime 200 mg tablet lactulose solution tamsulosin 0.4 mg 24 hr capsule Information about where to get these medications is not yet available Ask your nurse or doctor about these medications sodium bicarbonate 650 mg tablet documented in this encounter Discharge Instructions * Discharge Instructions* Gigi Maxwell MD - 07/17/2024 2:23 PM EDT Continue fluid restriction 1 L in 24 hours Resume intermittent paracentesis as per outpatient schedule documented in this encounter Medications at Time of Discharge aspirin 81 mg EC tablet Take 1 tablet (81 mg total) by mouth 1 (one) time each day. 90 tablet 1 4 BD Ultra-Fine Short Pen Needle 31 gauge x 5/16 needle Insulin injection, Subcutaneous twice a day 200 each 2 4 cefpodoxime (VANTIN) 200 mg tablet Take 1 tablet (200 mg total) by mouth 1 (one) time each day for 7 days. 7 each 5 07/26/19 25 folic acid (FOLVITE) 1 mg tablet TAKE 1 TABLET BY MOUTH EVERY DAY 90 tablet 5 gabapentin (NEURONTIN) 100 mg capsule Take 1 capsule (100 mg total) by mouth 2 (two) times a day. 3 glucose blood test strip Use as instructed Blood sugar checks 2-4 times a day 200 each 3 5 insulin aspart (NovoLOG) 100 unit/mL injection Inject 2-14 Units under the skin 3 (three) times a day before meals. -Administer within 5 minutes of a meal. BG 100 mg/dl or less 0 units, 101-150= 2 units, 151-200=6 units, 201-250=8 units, 251-300=10 units, 301-350=12, 351-400=14 units 5 07/03/19 26 insulin degludec (Tresiba FlexTouch U-200) 200 unit/mL (3 mL) CONCENTRATED injection pen Inject 20 Units under the skin at bedtime. 5 lactulose (CHRONULAC) solution Take 30 mL (20 g total) by mouth 3 (three) times a day for 14 days. 1500 mL 5 08/01/19 25 omeprazole OTC (PriLOSEC OTC) 20 mg EC tablet Take 1 tablet (20 mg total) by mouth 1 (one) time each day. Do not crush, chew, or split. 90 tablet 1 5 ondansetron (ZOFRAN) 4 mg tablet Take 1 tablet (4 mg total) by mouth every 12 (twelve) hours if needed for nausea or vomiting. 20 tablet 1 5 rifAXIMin (XIFAXAN) 550 mg tabletIndications:C irrhosis of liver with ascites, unspecified hepatic cirrhosis type (CMS/HCC V24, CMS/HCC V28),Hepatic encephalopathy (CMS/HCC V24, CMS/HCC V28) Take 1 tablet (550 mg total) by mouth 2 (two) times a day. 60 tablet 5 sodium bicarbonate 650 mg tablet Take 1 tablet (650 mg total) by mouth 2 (two) times a day. 5 07/18/19 26 sucralfate (Carafate) 1 gram tablet Take 1 tablet (1 g total) by mouth 3 (three) times a day with meals. 90 each 5 Synthroid 125 mcg tablet Take 1 tablet (125 mcg total) by mouth 1 (one) time each day. 90 each 1 5 tamsulosin (FLOMAX) 0.4 mg 24 hr capsule Take 1 capsule (0.4 mg total) by mouth 1 (one) time each day. Capsules should be taken 30 minutes following the same meal each day. 30 each 5 08/17/19 25 documented as of this encounter Ordered Prescriptions Prescription Sig Dispense Quantity Refills Last Filled Start Date End Date sodium bicarbonate 650 mg tablet Take 1 tablet (650 mg total) by mouth 2 (two) times a day. 07/17/2024 6 cefpodoxime (VANTIN) 200 mg tablet Take 1 tablet (200 mg total) by mouth 1 (one) time each day for 7 days. 7 each 07/18/2024 5 tamsulosin (FLOMAX) 0.4 mg 24 hr capsule Take 1 capsule (0.4 mg total) by mouth 1 (one) time each day. Capsules should be taken 30 minutes following the same meal each day. 30 each 07/17/2024 5 lactulose (CHRONULAC) solution Take 30 mL (20 g total) by mouth 3 (three) times a day for 14 days. 1500 mL 07/17/2024 5 documented in this encounter Discharge Disposition Disposition Code Departure Means Destination Comment s Retirement Facility documented in this encounter Progress Notes * Lluvia Mahoney RN - 07/17/2024 5:49 PM EDT This nurse called [phone]. Spoke with an Kelly and gave nurse to nurse report. * Lluvia Mahoney RN - 07/17/2024 3:07 PM EDT Problem: Falls: Fall Risk (Adult IP BH) Goal: (Goal) Patient will experience maximum safety and reduce risk for falls. Outcome: Adequate for Discharge Goal: Patient will not fall or injure themselves during hospitalization. Outcome: Adequate for Discharge Problem: Cognitive: Bowman Benjamin Fall Risk Goal: Last Known Fall Outcome: Adequate for Discharge Goal: Mobility requiring assistance of person or device Outcome: Adequate for Discharge Goal: Dizziness Outcome: Adequate for Discharge Goal: Medications Outcome: Adequate for Discharge Goal: Mental Status/LOC/Awareness Outcome: Adequate for Discharge Goal: Toileting Needs Outcome: Adequate for Discharge Goal: Volume and Electrolyte Status Outcome: Adequate for Discharge Goal: Communication/Sensory Outcome: Adequate for Discharge Goal: Behavior Outcome: Adequate for Discharge Problem: Skin Integrity: Pressure Injury Actual or Risk of Goal: Will not develop new pressure injury Outcome: Adequate for Discharge Goal: Skin integrity will improve Outcome: Adequate for Discharge Goal: Risk for impaired skin integrity will decrease Outcome: Adequate for Discharge Problem: Activity:Pressure Injury Actual or Risk of Goal: Mobility will improve Outcome: Adequate for Discharge Problem: Nutritional:Pressure Injury Actual or Risk of Goal: Nutritional status will improve Outcome: Adequate for Discharge Problem: Patient Specific Problem: Pressure Injury Actual or Risk of Goal: Patient Specific Outcome Outcome: Adequate for Discharge Identify possible barriers to meeting goals/advancing plan of care: none Stability of the patient: Moderately Stable - Low risk of patient condition declining or worsening End of Shift Summary: Patient rested comfortably. Patient ate 50% of meals. * Lizz Villatoro RN - 07/17/2024 2:03 PM EDT 07/17/24 1402 Initial Transition Plan Initial Transition Plan [facility] ([facility]) Transportation Transportation at discharge [facility] providing transportation [place] What day is the transport expected? 07/17/24 Final Discharge Disposition Retirement Facility (Pending facility confirmation of [facility] acceptance) [facility] responded, can accept Pt back today and transportation time pending. [place] transporting Pt at 1700. * Analia Hawthorne RD - 07/17/2024 1:50 PM EDT 07/17/2024 @ 1:50 PM EDT Nutrition Initial Assessment Manual Arts Therapist Services: Language: Slovenian Manual Arts Therapist Name or Number: [id number] Reason for RD Intervention: Assessment Type: Nutrition Trigger Reason for Assessment: Pressure Injury Additional Assessment Information: Stage 3 pressur ulcer present mid coccyx Anthropometrics: Height: 172.7 cm (67.99 ) Weight: 73.5 kg (162 lb 0.6 oz) BMI (Calculated): 24.6 BMI Class: Normal Current Diet and Supplements: Dietary Orders (From admission, onward) Start Ordered 07/16/242207 Adult diet [facility]; General, Fluid Restriction; Regular; Fluid Restriction 1000 mL Diet effective now Question Answer Comment Location [facility] Diet Type (req) General Diet Type (req) Fluid Restriction General Diet Regular Fluid Restrictions Fluid Restriction 1000 mL 07/16/242206 History of presenting illness: Patient is a 79 y.o. male with a history of Past Medical History: Diagnosis Date Cirrhosis (CMS/HCC V24, CMS/HCC V28) DX:Cirrhosis (HCC) Diabetes (CMS/HCC V24, CMS/HCC V28) DX:Diabetes (HCC) Essential hypertension, benign 07/06/2005 DX:Essential hypertension, benign Gastroesophageal reflux disease without esophagitis 05/06/2024 History of tobacco abuse 2002 DX:History of tobacco abuse; COMMENT: 70 pk years Microscopic hematuria DX:Microscopic hematuria Pulmonary nodule 10/2016 DX:Pulmonary nodule; COMMENT: on LDCT repeat in 3 mo Simple cyst of kidney DX:Simple cyst of kidney Splenomegaly DX:Splenomegaly; COMMENT: on ldct Thoracic aneurysm without mention of rupture 10/2016 DX:Thoracic aneurysm without mention of rupture; COMMENT: sm. 4 cm noted on LDCT Thrombocytopenia (CMS/HCC V24) DX:Thrombocytopenia (HCC) Past Surgical History: Procedure Laterality Date OTHER SURGICAL HISTORY PROCEDURE: DENIES PREVIOUS SURGERY admitted 07/14/2024 with Hyponatremia. Food/Nutrition History: Previously prescribed diets: Previous therapeutic diet (Comment) (Patient was following a fluid restriction as well as low sodium diet prior to his admission. 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 No recent significant changes in his appetite. He did note he has lost some weight over the last several months, but unable to reports how much or specific time frame. Does follow a fluid restriction and low sodium diet, however, admits to not always being compliant with fluid restriction. Lik es to drink mostly water and enjoys apple juice. Does not take supplements, a little hesitant, but willing to trial 4oz Ensure compact. Nutrition-Related Lab Values: Results from last 7 days Lab Units 07/17/24 1119 07/17/24 0809 07/17/24 0538 07/15/24 0740 07/15/24 0434 SODIUM mmol/L -- -- 125* < > 121* POTASSIUM mmol/L -- -- 4.5 < > 5.1 PHOSPHORUS mg/dL -- -- 4.3 -- -- MAGNESIUM mg/dL -- -- 2.9* < > -- CHLORIDE mmol/L -- -- 98 < > 93* CO2 mmol/L -- -- 16* < > 20* BUN mg/dL -- -- 80* < > 66* CREATININE mg/dL -- -- 2.07* < > 2.29* EGFR mL/min/1.73m2 -- -- 32* < > 28* CALCIUM mg/dL -- -- 8.4* < > 8.7 BILIRUBIN TOTAL mg/dL -- -- -- -- 1.7* ALK PHOS unit/L -- -- -- -- 711* ALT unit/L -- -- -- -- 98* AST unit/L -- -- -- -- 61* POCT GLUCOSE mg/dL 284* < > -- < > -- GLUCOSE mg/dL -- -- 214* < > 227* WBC AUTO K/mcL -- -- 13.1* < > 10.7 < > = values in this interval not displayed. Lab Results Component Value Date LIPASE 55 07/07/2024 Medications: aspirin, 81 mg, oral, Daily cefTRIAXone, 1 g, intravenous, q24h folic acid, 1,000 mcg, oral, Daily gabapentin, 100 mg, oral, BID insulin glargine, 15 Units, subcutaneous, Nightly insulin lispro, 2-12 Units, subcutaneous, Before meals & nightly insulin lispro, 4 Units, subcutaneous, TID with meals levothyroxine, 125 mcg, oral, q AM AC midodrine, 10 mg, oral, TID AC pantoprazole, 40 mg, oral, q AM AC rifAXIMin, 550 mg, oral, BID sucralfate, 1 g, oral, TID with meals CONTINUOUS: PRN medications: dextrose 50%, dextrose 50%, dextrose, dextrose, glucagon injection Height: 172.7 cm (67.99 ) Temp: 36.5 ??C (97.7 ??F) Food/Nutrition-Current Status: Intake Type: P.O. Current Diet Status: Appropriate Current Supplement Status: Other (Comment) (Currently not on supplements, willing to trial 1 x per day.) Appetite: Fair Intake Amount (%): 50-75% Intake Assessment: Variable Oral Health: dentures in place, denies any hx of or current difficulties chewing Pain related to Intake: None Main IVF: None Propofol?: No Barriers: Language Nutrition Focused Physical Findings: Overall Appearance: Patient with thin extremities and notable ascites Nerves and Cognition: Alert, Oriented Skin: Stage 3 pressure ulcer to mid coccyx Fluid Accumulation/Edema: Other (Comment) (ascites) Loss of Fat Location: Buccal, Triceps Loss of Fat Amt-Buccal: Mild Loss of Fat Amt-Triceps: Moderate Loss of Muscle Location: Temples, Clavicle Loss of Muscle Amt-Temples: Mild Loss of Muscle Amt-Clavicle: Moderate Nutrition Diagnosis: Status: New Diagnosis: Increased Nutrient Needs Etiology: Increased demand for nutrient Symptoms: decompensated cirrhosis, presence of stage 3 pressure ulcer Nutrition Interventions: Medical Food Supplement Medical Food Supplement(s): Ensure Compact (4oz) Ensure Compact (4oz) Frequency: Other (Frequency) (1 x day) Goals: Patient will consume greater than or equal to 75% meals., Patient will consume ONS., Stooling appropriately., and Wound healing progress. Coordination of Patient Care: Care plan discussed with patient/family. and Discussed with provider(s) via [employer] Secure Chat/Haiku. Monitoring/Evaluation: Food Intake, Medical Food Supp/Oral Nutrition Supp, Renal/Electrolyte Profile, Gastrointestinal Profile Nutrition Recommendations/Plan of Care: Follow Up: Nutrition Priority Level: Moderate Follow up Date: 07/21/24 Please consult nutrition if needed sooner. RD remains available and will continue to follow. Signature: Analia Hawthorne RD * Gigi Maxwell MD - 07/16/2024 10:06 PM EDT Greyson Conchis 07/[birth year]24 1945 79 y.o. [id number] Gigi Maxwell, * INTERVAL HISTORY: No events overnight, patient interviewed with Slovenian speaking nurse Connie ASSESSMENT/PLAN: Patient is an 79-year-old Slovenian speaking male with a history of nonalcoholic decompensated cirrhosis, coronary disease, poorly controlled diabetes hypertension, hyperlipidemia CKD, hypothyroidism MOLST among further who presented to the hospital from the senior living facility secondary to abnorm al labs showing severe hyponatremia, leukocytosis and LJ on CKD. The patient was evaluated in the ED, he was given IV albumin and started on his chronic medication, he was admitted to medicine for further evaluated no mental status changes symptoms of hyponatremia were observed. Hyponatremia No significant symptoms, most likely due to hypervolemia, decompensated cirrhosis. Discussed with renal, patient is on chronic diuretic, has recurrent ascites, he states he is compliant with fluid restriction. Will need to continue fluid restriction, nephrology saw the patient and started treatmentwith sodium bicarbonate and urea. Sodium level has stabilized, unable to continue urea given elevated BUN, will continue sodium bicarbonate and recheck tomorrow. Currently appears to be asymptomatic LJ on CKD Likely hypoperfusion, possible renal, metabolic acidosis, sodium level and acidosis has improved. Continue closely, appreciate recommendations. Leukocytosis Leukocytosis likely due to stress response, white cell count has been fluctuating during recent admission, afebrile, no localizing symptoms, he has similar white cell count a week ago and improved without intervention, will continue to monitor closely. Decompensated cirrhosis Patient has ascites, hypertension, splenomegaly, thrombocytopenia. Patient getting regular paracentesis, Mild, no signs of bleeding, monitor. Patient appears to have subclinical encephalopathy, monitor Goals of care. I spoke with his granddaughter Corie who is the healthcare proxy, I also spoke with the patient through Slovenian speaking nurse, I communicated the overall poor prognosis to the patient's family and they are fully aware, the patient however has a stroke amish beliefs and he expects to have someimprovement, during my interview the patient seem to be open to have an informational hospice meeting, however, she shortly after spoke to her family and changed his mind, will continue current management. Will continue to reassess goals of care regularly. Disposition: Back to rehab when medically ready, not ready yet. SUBJECTIVE : Patient is frustrated because multiple admissions to the hospital, seems that every time he has a paracentesis he ends in the hospital, he denies any pain or shortness of breath, no nausea or vomiting, appetite is good, he states he is very compliant with his fluid restriction, he is having regularbowel movements, OBJECTIVE: Vitals: 07/16/24 1433 07/16/24 1629 07/16/24 1946 07/16/240 BP: 96/56 117/73 99/59 BP Location: Right arm Right arm Left arm;Upper Patient Position: Lying Lying Lying Pulse: 76 80 92 95 Resp: 20 18 Temp: 36.4 ??C (97.5 ??F) 36.2 ??C (97.2 ??F) 36.2 ??C (97.1 ??F) TempSrc: Temporal Temporal Temporal SpO2: 100% 100% 100% 100% Temp (24hrs), Av.3 ??C (97.3 ??F), Min:36.1 ??C (97 ??F), Max:36.4 ??C (97.5 ??F) Intake/Output Summary (Last 24 hours) at 07/16/2024 2206 Last data filed at 07/16/2024 1855 Gross per 24 hour Intake 360 ml Output 1050 ml Net -690 ml Wt Readings from Last 1 Encounters: 07/08/24 1031 73.5 kg (162 lb) 07/07/24 0947 73.5 kg (162 lb) PHYSICAL EXAM: Gen: Elderly male, chronically ill-appearing, pleasant and cooperative, NAD, temporal muscle wasting, pale CV -RRR no MGR Lungs -CTAB Abd - Soft, non-tender, mildly distended, tympanic, no significant residual ascites Extremities - No LE edema Neuro - AO x3, mild asterixis, no focal weakness, speech is clear, RESULTS: CBC BMP Results from last 7 days Lab Units 07/16/24 0530 07/15/24 0434 07/14/24 0917 07/10/24 0651 WBC AUTO K/mcL 14.9* 10.7 16.6* 12.1* HEMOGLOBIN g/dL 9.8* 9.9* 10.3* 9.2* HEMATOCRIT % 27.8* 28.5* 29.7* 26.9* PLATELETS K/mcL 43* 30* 28* 38* LYMPHS PCT AUTO % 16.1 13.8 14.7 23.0 MONO PCT AUTO % 9.4 8.4 8.2 12.0 EOS PCT AUTO % 1.3 1.1 1.4 1.2 Results from last 7 days Lab Units 07/16/24 0530 07/15/24 1820 07/15/24 0434 07/14/24 0917 07/10/24 0651 SODIUM mmol/L 124* 125* 121* 119* 125* POTASSIUM mmol/L 4.9 -- 5.1 4.7 5.5 CHLORIDE mmol/L 98 -- 93* 90* 98 CO2 mmol/L 18* -- 20* 16* 18* ANION GAP 8 -- 8 13* 9 BUN mg/dL 80* -- 66* 69* 57* CREATININE mg/dL 2.16* -- 2.29* 2.86* 1.86* CALCIUM mg/dL 8.8 -- 8.7 8.5 8.8 MAGNESIUM mg/dL 3.0* -- -- -- -- Results from last 7 days Lab Units 07/16/24 1957 07/16/24 1606 07/16/24 1112 07/16/24 0748 07/16/24 0530 POCT GLUCOSE mg/dL 252* 239* 237* 184* -- GLUCOSE mg/dL -- -- -- -- 183* Results from last 7 days Lab Units 07/15/24 0434 07/14/24 0917 AST unit/L 61* 110* ALT unit/L 98* 147* Imaging: US Paracentesis w Image Guidance Narrative: HISTORY: Large volume ascites. TECHNIQUE: After written informed consent was obtained [...] in right lower quadrant localized for drainage. Impression: Successful paracentesis of 3.8L of cloudy pink fluid without complications. -------- FINAL REPORT -------- Dictated By: Roxanna Murguia Dictated Date: 06/13/2024 14:44 ET Assigned Physician: Roland Parish Reviewed and Electronically Signed By: Roland Parish Signed Date: 07/15/2024 13:55 ET Workstation ID: [id number] Transcribed By: Self Edit Transcribed Date: 06/13/2024 14:45 ET Resident/PA/LINOTYPIST: Roxanna Murguia Scheduled Medications PRN Medications IV Medications aspirin, 81 mg, Daily folic acid, 1,000 mcg, Daily gabapentin, 100 mg, BID insulin glargine, 15 Units, Nightly insulin lispro, 2-12 Units, Before meals & nightly insulin lispro, 4 Units, TID with meals levothyroxine, 125 mcg, q AM AC midodrine, 10 mg, TID AC pantoprazole, 40 mg, q AM AC rifAXIMin, 550 mg, BID sucralfate, 1 g, TID with meals dextrose 50%, 12.5 g, q15 min PRN dextrose 50%, 25 g, q15 min PRN dextrose, 15 g, q15 min PRN dextrose, 30 g, q15 min PRN glucagon injection, 1 mg, Once PRN [x] Code status: No CPR/Do Not Intubate [x] VTE Prophylaxis: Pneumoboots [x] Lines, tubes, drains: None Health Care proxy with Phone number: * Lluvia Mahoney RN - 07/16/2024 3:49 PM EDT Problem: Falls: Fall Risk (Adult IP BH) Goal: (Goal) Patient will experience maximum safety and reduce risk for falls. Outcome: Progressing Goal: Patient will not fall or injure themselves during hospitalization. Outcome: Progressing Problem: Cognitive: Bowman Benjamin Fall Risk Goal: Last Known Fall Outcome: Progressing Goal: Mobility requiring assistance of person or device Outcome: Progressing Goal: Dizziness Outcome: Progressing Goal: Medications Outcome: Progressing Goal: Mental Status/LOC/Awareness Outcome: Progressing Goal: Toileting Needs Outcome: Progressing Goal: Volume and Electrolyte Status Outcome: Progressing Goal: Communication/Sensory Outcome: Progressing Goal: Behavior Outcome: Progressing Problem: Skin Integrity: Pressure Injury Actual or Risk of Goal: Will not develop new pressure injury Outcome: Progressing Goal: Skin integrity will improve Outcome: Progressing Goal: Risk for impaired skin integrity will decrease Outcome: Progressing Problem: Activity:Pressure Injury Actual or Risk of Goal: Mobility will improve Outcome: Progressing Problem: Nutritional:Pressure Injury Actual or Risk of Goal: Nutritional status will improve Outcome: Progressing Problem: Patient Specific Problem: Pressure Injury Actual or Risk of Goal: Patient Specific Outcome Outcome: Progressing Identify possible barriers to meeting goals/advancing plan of care: Abnormal labs. Stability of the patient: Moderately Stable - Low risk of patient condition declining or worsening End of Shift Summary: Patient rested comfortably with stable VS. Patient ate 100% of meals and patient adheres to fluid restriction. * Sonido Nunez MD - 07/16/2024 3:44 PM EDT Images from the original note were not included. Progress Note CHIEF COMPLAINT F/u SUBJECTIVE Patient seen and examined Overall feels the same. Abdominal distention is better MEDICAL HISTORY Past Medical History: Diagnosis Date Cirrhosis (CMS/HCC) DX:Cirrhosis (HCC) Diabetes (CMS/HCC) DX:Diabetes (HCC) Essential hypertension, benign 07/06/2005 DX:Essential hypertension, benign Gastroesophageal reflux disease without esophagitis 05/06/2024 History of tobacco abuse 2002 DX:History of tobacco abuse; COMMENT: 70 pk years Microscopic hematuria DX:Microscopic hematuria Pulmonary nodule 10/2016 DX:Pulmonary nodule; COMMENT: on LDCT repeat in 3 mo Simple cyst of kidney DX:Simple cyst of kidney Splenomegaly DX:Splenomegaly; COMMENT: on ldct Thoracic aneurysm without mention of rupture 10/2016 DX:Thoracic aneurysm without mention of rupture; COMMENT: sm. 4 cm noted on LDCT Thrombocytopenia (CMS/HCC) DX:Thrombocytopenia (HCC) MEDICATIONS aspirin, 81 mg, oral, Daily folic acid, 1,000 mcg, oral, Daily gabapentin, 100 mg, oral, BID insulin glargine, 15 Units, subcutaneous, Nightly insulin lispro, 2-12 Units, subcutaneous, Before meals & nightly insulin lispro, 4 Units, subcutaneous, TID with meals levothyroxine, 125 mcg, oral, q AM AC midodrine, 10 mg, oral, TID AC pantoprazole, 40 mg, oral, q AM AC rifAXIMin, 550 mg, oral, BID sucralfate, 1 g, oral, TID with meals PRN medications: dextrose 50%, dextrose 50%, dextrose, dextrose, glucagon injection OBJECTIVE Vital signs in last 24 hours: Visit Vitals BP 96/56 (BP Location: Right arm, Patient Position: Lying) Pulse 76 Temp 36.4 ??C (97.5 ??F) (Temporal) Resp 20 Intake/Output last 24 hours: Intake/Output Summary (Last 24 hours) at 07/16/2024 1544 Last data filed at 07/16/2024 1357 Gross per 24 hour Intake 240 ml Output 500 ml Net -260 ml Weights: Admission Weight: Wt Readings from Last 3 Encounters: 07/08/24 73.5 kg (162 lb) 06/30/24 73.5 kg (162 lb) 06/23/24 68 kg (150 lb) Physical Exam: General: No acute distress HEENT: Normocephalic, atraumatic, anicteric Cardiovascular: S1 S2 normal Respiratory: unlabored Gl: Ascites Extremities: No cyanosis Neurological: Alert Integumentary: no rash Psych: Calm, cooperative LABS Results from last 7 days Lab Units 07/16/24 0530 07/15/24 0434 07/14/24 0917 WBC AUTO K/mcL 14.9* 10.7 16.6* HEMOGLOBIN g/dL 9.8* 9.9* 10.3* HEMATOCRIT % 27.8* 28.5* 29.7* MCV FL 89.1 90.8 91.1 PLATELETS K/mcL 43* 30* 28* Results from last 7 days Lab Units 07/16/24 0530 07/15/24 1820 07/15/24 0434 07/14/24 0917 CREATININE mg/dL 2.16* -- 2.29* 2.86* BUN mg/dL 80* -- 66* 69* SODIUM mmol/L 124* 125* 121* 119* POTASSIUM mmol/L 4.9 -- 5.1 4.7 CHLORIDE mmol/L 98 -- 93* 90* CO2 mmol/L 18* -- 20* 16* Phosphorus Date Value Ref Range Status 06/15/2024 3.2 2.5 - 4.5 mg/dL Final 06/14/2024 3.7 2.5 - 4.5 mg/dL Final 05/09/2024 3.2 2.5 - 4.5 mg/dL Final PTH Date Value Ref Range Status 05/09/2024 40.2 18.5 - 88.0 pcg/mL Final Iron Date Value Ref Range Status 04/29/2024 56 50 - 160 mcg/dL Final TIBC Date Value Ref Range Status 04/29/2024 269 250 - 450 mcg/dL Final Ferritin Date Value Ref Range Status 04/29/2024 84 26 - 388 ng/mL Final No results found for: COLORUA , CLARITYUA , SPECGRAVUA , PHUA , PROTUA , GLUCOSEUA , KETONESUA , BILIRUBINUA , BLOODUA , UROBILINOGUA , NITRITEUA IMPRESSION and PLAN Acute kidney injury. Acute kidney injury as patient likely secondary renal hypoperfusion in settingof severe liver disease/hypoalbuminemia. Obstruction has been ruled out on this patient 2. 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 Severe hyponatremia. Patient has hypervolemic hyponatremia in the setting of end-stage liver disease with elevated ADH secretion. Patient has acute on chronic hyponatremia. Baseline sodium levels has been ranging around 1 25-1 30. She had episode of multiple hyponatremia issues Patient has hypervolemic hyponatremia. Serum osmolality still not available to comment on the hospital or state Uric acid level and cortisol levels are acceptable 4. Non-anion gap metabolic acidosis is improved 5. Decompensated nonalcoholic cirrhosis with chronic ascites requiring paracentesis 6. Hyponatremia which is chronic and is on midodrine I reviewed the urine studies and his urine sodium is low with low fractional excretion of sodium Continue strict fluid restriction of 1 L/day Can have a normal salt diet for now and needs low-salt diet long-term as she has chronic ascites Sodium level has stabilized Did receive 1 dose of urea but BUN is gone up and no more urea doses. Continue sodium bicarb 650 mg 1 tablet 3 times daily x 6 doses in total as sodium is low with acidosis Both the above has been ordered Avoid nephrotoxins Avoid rapid correction of sodium i.e. not more than 6 to 8 mg or 24 hours Long-term this patient has very poor prognosis. Presently patient is DNR/DNI. Continue discussion with patient and family regarding goals of care -Avoid nephrotoxins, such as NSAIDs, iodinated contrast, and phosphate enema, as able. -Dose all mediations for appropriate eGFR Thank you for Sonido Nunez MD * Gigi Maxwell MD - 07/16/2024 3:08 PM EDT [facility] Provider Response Note PATIENT: GREYSON BALDERRAMA : 1945 ADMIT DATE: 07/15/2024 4:18 PM DISCH DATE: RESPONDING PROVIDER #: [id number] PROVIDER RESPONSE TEXT: The provider is in agreement with the additional diagnosis. QUERY TEXT: Hepatorenal syndrome is documented in the Nephrology PN 07/15/24 Dr. Nunez . Are you in agreement withthe statement listed below? This is an 79-year-old Slovenian speaking male past medical history significant for non-alcoholic cirrhosis of the liver with ascites requiring paracentesis, portal hypertension, splenomegaly... Acute kidney injury. Acute kidney injury as patient likely secondary renal hypoperfusion in setting of severe liver disease/hypoalbuminemia. 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 Severe hyponatremia. Patient has hypervolemic hyponatremia in the setting of end-stage liver disease with elevated ADH secretion. Decompensated nonalcoholic cirrhosis with chronic ascites requiring paracentesis PN Dr. Hinson 07/15/24 The patient was evaluated in the ED, he was given IV albumin and started on his chronic medication,... Thank you for your attention to this matter. Susan Peters RN, c [phone] The patient's clinical indicators include: Options provided: -- Yes, I am in agreement with the additional diagnosis -- No, I am not in agreement with the additional diagnosis -- Unable to determine -- Other - I will add my own diagnosis -- Disagree - Not applicable / Not valid Query created by: Susan Peters on 07/16/2024 12:37 PM Electronically signed by: GIGI MAXWELL MD 07/16/2024 3:08 PM * Beatriz Graham RN - 07/16/2024 2:07 PM EDT CM Progress Note HEMALATHA: 07/17-07/18 Barriers: labs Plan: [facility] /Andrew Elizalde * Yanique Beach RN - 07/16/2024 3:27 AM EDT Problem: Falls: Fall Risk (Adult IP BH) Goal: Patient will not fall or injure themselves during hospitalization. Outcome: Progressing Problem: Cognitive: Bowman Benjamin Fall Risk Goal: Last Known Fall Outcome: Progressing Goals: Clinical Goals for the Shift: improve sodium Identify possible barriers to meeting goals/advancing plan of care: language barrier Stability of the patient: Moderately Stable - Low risk of patient condition declining or worsening End of Shift Summary: pt adhere to treatment plan, tolerated all meds with no issues. Pt denies ainno sob/resp distress noted or voiced. Pt 1 assist to roll redirection and assisted needed with urinal at times. Pt maintain fluid restriction care ongoing at this time. * Gigi Maxwell MD - 07/15/2024 1:00 PM EDT Greyson Balderrama 07[birth year] 79 y.o. [id number] Gigi Maxwell, * INTERVAL HISTORY: No events overnight Patient was interviewed with remote video door puller Shaye. ASSESSMENT/PLAN: Patient is an 79-year-old Slovenian speaking male with a history of nonalcoholic decompensated cirrhosis, coronary disease, poorly controlled diabetes hypertension, hyperlipidemia CKD, hypothyroidism MOLST among further who presented to the hospital from the senior living facility secondary to abnorm al labs showing severe hyponatremia, leukocytosis and LJ on CKD. The patient was evaluated in the ED, he was given IV albumin and started on his chronic medication, he was admitted to medicine for further evaluated no mental status changes symptoms of hyponatremia were observed. Hyponatremia No significant symptoms, most likely due to hypervolemia, decompensated cirrhosis. Discussed with renal, patient is on chronic diuretic, has recurrent ascites, he states he is compliant with fluid restriction. Will need to continue fluid restriction, nephrology saw the patient and started treatmentwith sodium bicarbonate and urea. Sodium level has been improving, will monitor, avoid overcorrection. LJ on CKD Likely hypoperfusion, possible renal, metabolic acidosis, sodium level and acidosis has improved. Continue closely, appreciate recommendations. Leukocytosis Patient had glucose this admission with discharge response, white cell count has improved, no signsof infection, monitor closely. Decompensated cirrhosis Patient has ascites, hypertension, splenomegaly, thrombocytopenia. Patient getting regular paracentesis, Mild, no signs of bleeding, monitor. No signs of encephalopathy on my exam. Disposition: Back to rehab when medically ready, not ready yet. SUBJECTIVE : Patient is frustrated because multiple admissions to the hospital, seems that every time he has a paracentesis he ends in the hospital, he denies any pain or shortness of breath, no nausea or vomiting, appetite is good, he states he is very compliant with his fluid restriction, he is having regularbowel movements, OBJECTIVE: Vitals: 07/15/24 0450 07/15/24 0753 07/15/24 0812 07/15/24 1120 BP: 103/56 (!) 111/44 116/55 110/58 BP Location: Right arm Right arm Right arm Patient Position: Lying Lying Lying Pulse: 83 80 81 78 Resp: 18 14 16 12 Temp: 36.4 ??C (97.6 ??F) 36.2 ??C (97.1 ??F) 36.4 ??C (97.5 ??F) TempSrc: Oral Temporal Temporal SpO2: 99% 100% 100% 100% Temp (24hrs), Av.4 ??C (97.5 ??F), Min:36.2 ??C (97.1 ??F), Max:36.5 ??C (97.7 ??F) No intake or output data in the 24 hours ending 07/15/24 1300 Wt Readings from Last 1 Encounters: 07/08/24 1031 73.5 kg (162 lb) 07/07/24 0947 73.5 kg (162 lb) PHYSICAL EXAM: Gen: Elderly male, chronically ill-appearing, pleasant and cooperative, NAD, temporal muscle wasting, pale CV -RRR no MGR Lungs -CTAB Abd - Soft, non-tender, mildly distended, tympanic, no significant residual ascites Extremities - No LE edema Neuro - AO x3, mild asterixis, no focal weakness, speech is clear, RESULTS: CBC BMP Results from last 7 days Lab Units 07/15/24 0434 07/14/24 0917 07/10/24 0651 07/09/24 0620 WBC AUTO K/mcL 10.7 16.6* 12.1* 9.1 HEMOGLOBIN g/dL 9.9* 10.3* 9.2* 9.3* HEMATOCRIT % 28.5* 29.7* 26.9* 27.9* PLATELETS K/mcL 30* 28* 38* 34* LYMPHS PCT AUTO % 13.8 14.7 23.0 17.3 MONO PCT AUTO % 8.4 8.2 12.0 11.2 EOS PCT AUTO % 1.1 1.4 1.2 1.1 Results from last 7 days Lab Units 07/15/24 0434 07/14/24 0917 07/10/24 0651 07/09/24 0620 SODIUM mmol/L 121* 119* 125* 129* POTASSIUM mmol/L 5.1 4.7 5.5 4.7 CHLORIDE mmol/L 93* 90* 98 102 CO2 mmol/L 20* 16* 18* 18* ANION GAP 8 13* 9 9 BUN mg/dL 66* 69* 57* 60* CREATININE mg/dL 2.29* 2.86* 1.86* 1.71* CALCIUM mg/dL 8.7 8.5 8.8 8.5 Results from last 7 days Lab Units 07/15/24 1121 07/15/24 0740 07/15/24 0434 07/14/24 2101 07/14/24 1921 POCT GLUCOSE mg/dL 264* 208* -- 336* 326* GLUCOSE mg/dL -- -- 227* -- -- Results from last 7 days Lab Units 07/15/24 04307/14/24 0917 AST unit/L 61* 110* ALT unit/L 98* 147* Imaging: US Paracentesis w Image Guidance Narrative: HISTORY: Large volume ascites. TECHNIQUE: After written informed consent was obtained [...] in right lower quadrant localized for drainage. Impression: Successful paracentesis of 3.8L of cloudy pink fluid without complications. -------- FINAL REPORT -------- Dictated By: Roxanna Murguia Dictated Date: 06/13/2024 14:44 ET Assigned Physician: Roland Parish Reviewed and Electronically Signed By: Roland Parish Signed Date: 07/15/2024 13:55 ET Workstation ID: [id number] Transcribed By: Self Edit Transcribed Date: 06/13/2024 14:45 ET Resident/PA/LINOTYPIST: Roxanna Murguia Scheduled Medications PRN Medications IV Medications aspirin, 81 mg, Daily folic acid, 1,000 mcg, Daily gabapentin, 100 mg, BID insulin glargine, 15 Units, Nightly insulin lispro, 2-12 Units, Before meals & nightly insulin lispro, 4 Units, TID with meals lactulose, 20 g, TID levothyroxine, 125 mcg, q AM AC midodrine, 10 mg, TID AC pantoprazole, 40 mg, q AM AC rifAXIMin, 550 mg, BID sodium bicarbonate, 650 mg, TID sucralfate, 1 g, TID with meals urea, 30 g, Once dextrose 50%, 12.5 g, q15 min PRN dextrose 50%, 25 g, q15 min PRN dextrose, 15 g, q15 min PRN dextrose, 30 g, q15 min PRN glucagon injection, 1 mg, Once PRN [x] Code status: No CPR/Do Not Intubate [x] VTE Prophylaxis: Pneumoboots [x] Lines, tubes, drains: None Health Care proxy with Phone number: * Jaimee Hernandez RN - 07/15/2024 11:58 AM EDT 07/15/24 1157 Initial Transition Plan Initial Transition Plan Retirement Facility Discharge Planning Living Arrangements Spouse/significant other;Children Type of Residence Private residence;Other (Comment) Assistive Devices [employer] Spouse/significant other;Children Medication Coverage Has Med Coverage Under Insurance Plan Yes Medication Affordability No concerns related to payment for meds Anticipated Discharge Needs Discipline following for SNF placement [employer] Informed Choice Informed Choice Given? Yes ICC met with patient and spoke with EC granddaughter Corie. Confirmed that patient is currently at [facility] for [facility] and the plan is for him to return there when medically ready * Luda Boucher RN - 07/15/2024 11:57 AM EDT Images from the original note were not included. Wound Care Initial Consult Visit Date: 07/15/2024 Patient Name: Greyson Balderrama Date of : 1945 Reason for Consult: Wound RN Consult received to assess coccyx pressure injury present on admissionand recommend topical treatment and plan of care. 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 03/02/2024 Type 2 diabetes mellitus with diabetic microalbuminuria, with long-term current use of insulin (CMS/HCC) 03/02/2024 Hepatic cyst 03/02/2024 PAD (peripheral artery disease) (CMS/HCC) 05/29/2023 Chronic anemia 08/22/2022 Peripheral polyneuropathy 04/18/2022 Acquired hypothyroidism 10/05/2020 Thrombocytopenia (CMS/HCC) 08/23/2020 Alcoholic cirrhosis of liver without ascites (CMS/HCC) 08/15/2020 Liver lesion 08/15/2020 Splenomegaly 08/15/2020 Thrombocytopenia (CMS/HCC) 08/15/2020 Atherosclerosis of [place] coronary artery of [place] heart without angina pectoris 10/07/2019 Renal cyst 10/07/2019 Splenomegaly 06/11/2017 Chronic stable angina ([facility]/HCC) 02/07/2017 Hyperlipidemia 10/29/2009 Essential hypertension, benign 07/06/2005 Wound History: Hx pf pressure injury noted at previous admission (POA) Nutritional Status: Pertinent Labs: Albumin Date Value Ref Range Status 07/15/2024 3.2 3.2 - 5.0 g/dL Final Albumin, Fluid Date Value Ref Range Status 06/13/2024 1.0 See Comment g/dL Final WBC Date Value Ref Range Status 07/15/2024 10.7 4.8 - 10.8 K/mcL Final WBC, Urine Date Value Ref Range Status 07/07/2024 8.6 (H) 0 - 4 /HPF Final Hemoglobin A1C Date Value Ref Range Status 02/13/2024 7.0 (H) <6.5 % Final Glucose POCT Date Value Ref Range Status 07/15/2024 264 (H) 70 - 100 mg/dL Final Wound Assessment: Wound Pressure Injury 06/30/24 Coccyx Mid (Active) Wound Image 07/15/24 1051 Wound Bed Tissue Assessment Yellow;Red 07/15/24 1051 Nyasia-Wound Assessment Erythematous;Painful 07/15/24 1051 Shape Oval 07/15/24 1051 Wound Length (cm) 2 cm 07/15/24 1051 Wound Width (cm) 1.2 cm 07/15/24 1051 Wound Surface Area (cm^2) 2.4 cm^2 07/15/24 1051 Wound Depth (cm) 0.1 cm 07/15/24 1051 Wound Volume (cm^3) 0.24 cm^3 07/15/24 1051 Wound Healing % -186 07/15/24 1051 Drainage Description Serosanguineous 07/15/24 1051 Drainage Amount Small 07/15/24 1051 Treatments Cleansed 07/15/24 1051 Dressing Foam;Other (Comment);Hydrofiber 07/15/24 1051 Dressing Changed New 07/15/24 1051 Dressing Status Clean;Dry;Intact 07/15/24 0832 State of Healing Early/partial granulation 07/15/24 1051 Pressure Injury Stage 3 07/15/24 1051 Wound Abrasion 07/07/24 Knee Anterior;Right (Active) Wound Image 07/15/24 1049 Wound Bed Tissue Assessment Clean;Dry 07/15/24 1050 Nyasia-Wound Assessment Clean;Dry 07/15/24 1050 Wound Abrasion 07/07/24 Pretibial Left;Proximal (Active) Wound Image 07/15/24 1049 Wound Bed Tissue Assessment Clean;Dry 07/15/24 1050 Dressing Status Clean;Dry;Intact 07/15/24 1050 Wound Abrasion 07/07/24 Pretibial Right (Active) Wound Image 07/15/24 1049 Wound Bed Tissue Assessment Clean;Dry 07/15/24 1050 Nyasia-Wound Assessment Clean;Dry 07/15/24 1050 Support Surface: Patient is already on Isotour bed. Continue to assist with turning and repositioning utilizing LEAF system. Wound Summary Assessment: Patient is 79 years old male admitted with hyponatremia. Coccyx stage 3 PI with increased size since admission surrounded by halo of erythema, minimal maceration. Patient stated he was in rehab facility and is not sure if he had air mattress. His lower legs have some stable and dry scabs, Wound Plan: Recommending side laying as much as possible as patient c/o pain when laying on coccyx wound. Topical treatment consisting of triad on to wound bed- thin layer and cover with aquacel ag, allevyn sacral and change QOD and prn. 07/15/2024 11:57 AM EDT * Emely Dillon RN - 07/15/2024 3:31 AM EDT ED RN HANDOFF (All Fuentes Below Must Be Completed) Reason/Diagnosis for Admission: hyponatremia Pt does not have any complaints himself. Sent in from snf for abnormal labs and to have paracentesis (5L removed). Pt is type 2 diabetic, diet incorrectly entered as reg, order should be updated to diabetic diet. Wbc, bun/creat all elevated. Pt uses urinal. Type of Admission: [] Medsurg, [x] Telemetry Already in a Hospital Bed: [x] Yes / [] No Room Considerations/Precautions (ex: fever, diarrhea, or any infectious concerns): [] Yes / [x] No Family Dentist: [x] Yes / [] No If YES, Cardiac Rhythm: [x] NSR, [] SB, [] ST, [] A-FIB, [] A-Flutter, [] Pacemaker, [] 1st Degree HB, [] 2nd Degree HB, [] 3rd Degree HB Reason for Family Dentist: VS: Visit Vitals BP 111/63 Pulse 91 Temp 36.4 ??C (97.5 ??F) Resp 18 SpO2 99% Smoking Status Former Current Mental Status: A/O x [x]4, []3, []2, []1 Current Ambulation Status: IV Access: [x] Yes / [] No Field IV present: [] Yes / [x] No Hx of Violence: [] Yes / [x] No / [] Unknown Fall Risk:[x] Yes / [] No Yellow Bracelet Applied [x] Yes / [] No Yellow Socks Applied [x] Yes / [] No Patient Belongings inventoried and BL completed: [x] Yes / [] No Patient belongings stored in the security closet: [] Yes (If Yes please supply Security bag #): [x] No Patient Medications stored in Pharmacy: [] Yes (If Yes please supply Medication Security bag #): [x] No ED Summary of Care: CT chest, Ct abdomen, meds (please see mar). Labs, respiratory panel, poct Submitted by and Phone Extension: Emely Dillon RN 07/15/24 0429 * Shonda Sandoval - 07/14/2024 5:37 PM EDT Meal tray given to pt, drawer hardware worker Isaac Sandoval. Shonda Sandoval 07/14/24 0749 * Hansel Vale RN - 07/14/2024 9:03 AM EDT Patient coming from snf with abnormal labs. Sodium of 118. Patient also is due for paracentesis * Edi Shipman DO - 07/14/2024 8:59 AM EDT Emergency Medicine Note Patient Name: Greyson Balderrama Initial Evaluation: 07/14/2024 : 1945 Patient's PCP: Michael Kumar MD Emergency Physician: Edi Shipman DO History of Present Illness Chief Complaint: Chief Complaint Patient presents with Labs Only HPI: 79-year-old male sent from a nursing facility. Sent for needs paracentesis and recurrent hyponatremia. 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 Patient himself does not have any complaints. He does not have any abdominal pain. He denies fever. He states he swollen. He does not feel any shortness of breath. He is unsure if he is peeing normally. He says he is not having any nausea vomiting or diarrhea. ROS: I have performed a ROS with the pertinent positives and negatives documented in the history ofpresent illness. Previous History Past Medical History: Diagnosis Date Cirrhosis (CMS/HCC) DX:Cirrhosis (HCC) Diabetes (CMS/HCC) DX:Diabetes (HCC) Essential hypertension, benign 07/06/2005 DX:Essential hypertension, benign Gastroesophageal reflux disease without esophagitis 05/06/2024 History of tobacco abuse 2002 DX:History of tobacco abuse; COMMENT: 70 pk years Microscopic hematuria DX:Microscopic hematuria Pulmonary nodule 10/2016 DX:Pulmonary nodule; COMMENT: on LDCT repeat in 3 mo Simple cyst of kidney DX:Simple cyst of kidney Splenomegaly DX:Splenomegaly; COMMENT: on ldct Thoracic aneurysm without mention of rupture 10/2016 DX:Thoracic aneurysm without mention of rupture; COMMENT: sm. 4 cm noted on LDCT Thrombocytopenia (CMS/HCC) DX:Thrombocytopenia (HCC) Past Surgical History: Procedure Laterality Date OTHER SURGICAL HISTORY PROCEDURE: DENIES PREVIOUS SURGERY Social History Tobacco Use Smoking status: Former Smokeless tobacco: Never Substance Use Topics Alcohol use: No Drug use: No Family History Problem Relation Name Age of Onset Other (Other: health history unknown) Mother Other (Other: health history unknown) Father has No Known Allergies. No current facility-administered medications on file prior to encounter. Current Outpatient Medications on File Prior to Encounter Medication Sig Dispense Refill aspirin 81 mg EC tablet Take 1 tablet (81 mg total) by mouth 1 (one) time each day. 90 tablet 1 BD Ultra-Fine Short Pen Needle 31 gauge x 5/16 needle Insulin injection, Subcutaneous twice a day 200 each 2 folic acid (FOLVITE) 1 mg tablet TAKE 1 TABLET BY MOUTH EVERY DAY 90 tablet 0 gabapentin (NEURONTIN) 100 mg capsule Take 1 capsule (100 mg total) by mouth 2 (two) times a day. glucose blood test strip Use as instructed Blood sugar checks 2-4 times a day 200 each 3 insulin aspart (NovoLOG) 100 unit/mL injection Inject 2-14 Units under the skin 3 (three) times a day before meals. -Administer within 5 minutes of a meal. BG 100 mg/dl or less 0 units, 101-150= 2 units, 151-200=6 units, 201-250=8 units, 251-300=10 units, 301-350=12, 351-400=14 units insulin degludec (Tresiba FlexTouch U-200) 200 unit/mL (3 mL) CONCENTRATED injection pen Inject 20 Units under the skin at bedtime. lactulose (CHRONULAC) solution Take 30 mL (20 g total) by mouth 3 (three) times a day for 14 days. 1500 mL 0 midodrine (PROAMATINE) 10 mg tablet Take 1 tablet (10 mg total) by mouth 3 (three) times a day before meals. 90 tablet 0 omeprazole OTC (PriLOSEC OTC) 20 mg EC tablet Take 1 tablet (20 mg total) by mouth 1 (one) time each day. Do not crush, chew, or split. 90 tablet 1 ondansetron (ZOFRAN) 4 mg tablet Take 1 tablet (4 mg total) by mouth every 12 (twelve) hours if needed for nausea or vomiting. 20 tablet 1 rifAXIMin (XIFAXAN) 550 mg tablet Take 1 tablet (550 mg total) by mouth 2 (two) times a day. 60 tablet 0 sucralfate (Carafate) 1 gram tablet Take 1 tablet (1 g total) by mouth 3 (three) times a day with meals. 90 each 0 Synthroid 125 mcg tablet Take 1 tablet (125 mcg total) by mouth 1 (one) time each day. 90 each 1 tamsulosin (FLOMAX) 0.4 mg 24 hr capsule Take 1 capsule (0.4 mg total) by mouth 1 (one) time each day. Capsules should be taken 30 minutes following the same meal each day. 30 each 0 [DISCONTINUED] insulin degludec (Tresiba FlexTouch U-200) 200 unit/mL (3 mL) CONCENTRATED injectionpen Inject 30 Units under the skin at bedtime. [DISCONTINUED] rifAXIMin (XIFAXAN) 200 mg tablet Take 1 tablet (200 mg total) by mouth 3 (three) times a day for 10 days. 30 tablet 0 Physical Exam ED Triage Vitals [07/14/24 0907] Temp Heart Rate Resp BP 36.9 ??C (98.5 ??F) 83 18 108/73 SpO2 Temp src Heart Rate Source Patient Position 100 % -- Monitor Lying BP Location FiO2 (%) Right arm -- General: Well-appearing, well nourished, in no acute distress HEENT: PERRL, EOMI, external ears and nose appear unremarkable, airway is patent Neck: Supple, full range of motion Chest: Clear to auscultation; no evidence of respiratory distress Circulatory: RRR, extremities well perfused Abdomen: Distended, nontender Extremities: Normal ROM, bilateral pitting edema Skin: Warm and dry Neuro: Alert and oriented, no focal deficits Results Labs Reviewed COMPREHENSIVE METABOLIC PANEL - Abnormal Result Value Sodium 119 (*) Potassium 4.7 Chloride 90 (*) CO2 16 (*) Anion Gap 13 (*) Glucose 271 (*) BUN 69 (*) Creatinine 2.86 (*) eGFR 22 (*) BUN/Creatinine Ratio 24.1 Calcium 8.5 AST (SGOT) 110 (*) ALT (SGPT) 147 (*) Alkaline Phosphatase 939 (*) Total Protein 5.6 (*) Albumin 2.8 (*) Total Bilirubin 1.6 (*) CBC WITH AUTO DIFFERENTIAL - Abnormal WBC 16.6 (*) RBC 3.30 (*) Hemoglobin 10.3 (*) Hematocrit 29.7 (*) MCV 91.1 MCH 31.6 MCHC 34.7 RDW 16.7 (*) Platelets 28 (*) MPV 13.5 (*) NRBC 0.0 NRBC Absolute 0.00 Neutrophils Relative 74.6 Lymphocytes Relative 14.7 Monocytes Relative 8.2 Eosinophils Relative 1.4 Basophils Relative 0.3 Immature Granulocytes Relative 0.8 Neutrophils Absolute 12.33 (*) Lymphocytes Absolute 2.44 Monocytes Absolute 1.36 (*) Eosinophils Absolute 0.23 Basophils Absolute 0.05 Immature Granulocytes Absolute 0.14 (*) ACTIVATED PARTIAL THROMBOPLASTIN TIME - Normal aPTT 31.0 AMMONIA - Normal Ammonia 17 CBC AND DIFFERENTIAL Narrative: The following orders were created for panel order CBC and differential. Procedure Abnormality Status --------- ------ CBC auto differential[[id number]] Abnormal Final result Please view results for these tests on the individual orders. PROTHROMBIN TIME WITH INR Abnormal Labs Reviewed COMPREHENSIVE METABOLIC PANEL - Abnormal; Notable for the following components: Result Value Sodium 119 (*) Chloride 90 (*) CO2 16 (*) Anion Gap 13 (*) Glucose 271 (*) BUN 69 (*) Creatinine 2.86 (*) eGFR 22 (*) AST (SGOT) 110 (*) ALT (SGPT) 147 (*) Alkaline Phosphatase 939 (*) Total Protein 5.6 (*) Albumin 2.8 (*) Total Bilirubin 1.6 (*) All other components within normal limits CBC WITH AUTO DIFFERENTIAL - Abnormal; Notable for the following components: WBC 16.6 (*) RBC 3.30 (*) Hemoglobin 10.3 (*) Hematocrit 29.7 (*) RDW 16.7 (*) Platelets 28 (*) MPV 13.5 (*) Neutrophils Absolute 12.33 (*) Monocytes Absolute 1.36 (*) Immature Granulocytes Absolute 0.14 (*) All other components within normal limits US Paracentesis w Image Guidance (Results Pending) I have discussed the incidental/abnormal imaging and/or lab abnormalities with the patient and haveinstructed them the need for further evaluation and workup with their primary care doctor. I have provided the patient with a paper copy of the abnormality. The laboratory results, imaging results and other diagnostic exam results were reviewed in the EMR. EKG Interpretation Critical Care Time None ? Medical Decision Making Patient is edematous volume overloaded. Needs paracentesis. On exam I do not think he has any pulmonary edema. More importantly he has a significant hyponatremia now of 119, and again has a acute on chronic kidney injury now with a BUN/creatinine of 69 and 2.86 respectively. Medications - No data to display ED Course as of 07/14/24 1106 Mon Jul 14, 2024 1056 ECG shows Sinus rhythm at 78. There were occasional PVCs present. [MC] ED Course User Index [MC] Edi Shipman DO Clinical Impressions as of 07/14/24 1106 Other ascites Hyponatremia Acute renal failure superimposed on chronic kidney disease, unspecified acute renal failure type, unspecified CKD stage (CMS/HCC) Procedures Procedures Diagnosis 1. Other ascites 2. Hyponatremia 3. Acute renal failure superimposed on chronic kidney disease, unspecified acute renal failure type, unspecified CKD stage (CMS/HCC) Disposition Admit to Inpatient ED Prescriptions None Physician Attestation Edi Shipman DO 07/14/24 110 documented in this encounter H&P Notes * UMER Harrell - 07/14/2024 1:20 PM EDT Images from the original note were not included. [facility] HISTORY AND PHYSICAL Please contact author [UMER Harrell] via [employer]. 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 On routine labs this morning he was noted to have hyponatremia, LJ and leukocytosis. At time of interview patient denies acute complaints. Denies fever, chills, focal weakness, headache, lightheadedness, dizziness, shortness of breath, cough, chest pain, abdominal pain, nausea, vomiting, diarrhea, constipation, dysuria or hematuria. Upon H&P patient is afebrile, heart rate 80, respiratory rate 18, blood pressure 117/61, oxygensaturation 100% on room air. Labs performed revealing WBC 16.6 with H&H 10.3/29.7, platelets 28, neutrophils 12.33, sodium 119 with chloride 90, CO2 16 with anion gap 13, BUN 69 with creatinine 2.86, AST 110 with ALT 147, alkaline phosphatase 939, albumin 2.8. Patient underwent scheduled paracentesis with interventional radiology and care subsidy transferred to medical service for further evaluation and treatment. Review of Systems Review of Systems All other systems reviewed and are negative. MEDICAL HISTORY Past Medical History Past Medical History: Diagnosis Date Cirrhosis (CMS/HCC) DX:Cirrhosis (HCC) Diabetes (CMS/HCC) DX:Diabetes (HCC) Essential hypertension, benign 07/06/2005 DX:Essential hypertension, benign Gastroesophageal reflux disease without esophagitis 05/06/2024 History of tobacco abuse 2002 DX:History of tobacco abuse; COMMENT: 70 pk years Microscopic hematuria DX:Microscopic hematuria Pulmonary nodule 10/2016 DX:Pulmonary nodule; COMMENT: on LDCT repeat in 3 mo Simple cyst of kidney DX:Simple cyst of kidney Splenomegaly DX:Splenomegaly; COMMENT: on ldct Thoracic aneurysm without mention of rupture 10/2016 DX:Thoracic aneurysm without mention of rupture; COMMENT: sm. 4 cm noted on LDCT Thrombocytopenia (CMS/HCC) DX:Thrombocytopenia (HCC) Past Surgical History Past Surgical History: Procedure Laterality Date OTHER SURGICAL HISTORY PROCEDURE: DENIES PREVIOUS SURGERY Social History reports that he has quit smoking. He has never used smokeless tobacco. He reports that he does not drink alcohol and does not use drugs. Previously lived with at home. Requires assistance with ADLS and ambulation. Currently at SNF. Family History family history includes Other: health history unknown in his father and mother. Allergies has No Known Allergies. Home Medications No current facility-administered medications on file prior to encounter. Current Outpatient Medications on File Prior to Encounter Medication Sig Dispense Refill aspirin 81 mg EC tablet Take 1 tablet (81 mg total) by mouth 1 (one) time each day. 90 tablet 1 BD Ultra-Fine Short Pen Needle 31 gauge x 5/16 needle Insulin injection, Subcutaneous twice a day 200 each 2 folic acid (FOLVITE) 1 mg tablet TAKE 1 TABLET BY MOUTH EVERY DAY 90 tablet 0 gabapentin (NEURONTIN) 100 mg capsule Take 1 capsule (100 mg total) by mouth 2 (two) times a day. glucose blood test strip Use as instructed Blood sugar checks 2-4 times a day 200 each 3 insulin aspart (NovoLOG) 100 unit/mL injection Inject 2-14 Units under the skin 3 (three) times a day before meals. -Administer within 5 minutes of a meal. BG 100 mg/dl or less 0 units, 101-150= 2 units, 151-200=6 units, 201-250=8 units, 251-300=10 units, 301-350=12, 351-400=14 units insulin degludec (Tresiba FlexTouch U-200) 200 unit/mL (3 mL) CONCENTRATED injection pen Inject 20 Units under the skin at bedtime. lactulose (CHRONULAC) solution Take 30 mL (20 g total) by mouth 3 (three) times a day for 14 days. 1500 mL 0 midodrine (PROAMATINE) 10 mg tablet Take 1 tablet (10 mg total) by mouth 3 (three) times a day before meals. 90 tablet 0 omeprazole OTC (PriLOSEC OTC) 20 mg EC tablet Take 1 tablet (20 mg total) by mouth 1 (one) time each day. Do not crush, chew, or split. 90 tablet 1 ondansetron (ZOFRAN) 4 mg tablet Take 1 tablet (4 mg total) by mouth every 12 (twelve) hours if needed for nausea or vomiting. 20 tablet 1 rifAXIMin (XIFAXAN) 550 mg tablet Take 1 tablet (550 mg total) by mouth 2 (two) times a day. 60 tablet 0 sucralfate (Carafate) 1 gram tablet Take 1 tablet (1 g total) by mouth 3 (three) times a day with meals. 90 each 0 Synthroid 125 mcg tablet Take 1 tablet (125 mcg total) by mouth 1 (one) time each day. 90 each 1 tamsulosin (FLOMAX) 0.4 mg 24 hr capsule Take 1 capsule (0.4 mg total) by mouth 1 (one) time each day. Capsules should be taken 30 minutes following the same meal each day. 30 each 0 [DISCONTINUED] insulin degludec (Tresiba FlexTouch U-200) 200 unit/mL (3 mL) CONCENTRATED injectionpen Inject 30 Units under the skin at bedtime. [DISCONTINUED] rifAXIMin (XIFAXAN) 200 mg tablet Take 1 tablet (200 mg total) by mouth 3 (three) times a day for 10 days. 30 tablet 0 OBJECTIVE Vitals Visit Vitals BP 117/61 (BP Location: Right arm, Patient Position: Lying) Pulse 80 Temp 36.9 ??C (98.4 ??F) (Oral) Resp 18 Temp (24hrs), Av.9 ??C (98.5 ??F), Min:36.9 ??C (98.4 ??F), Max:36.9 ??C (98.5 ??F) There is no height or weight on file to calculate BMI. No results found for: PTWT , PTHT Physical Examination General Exam: Age appropriate, awake, calm, cooperative, appearing in no acute distress. Skin Exam: Warm, dry, intact, no diaphoresis. No rashes noted. Capillary refill < 3 seconds. Eye Exam: No scleral icterus HEENT exam: Head is atraumatic, normocephalic. Oral mucosa mildly dry, throat is clear. No trismus,drooling, or difficulty handling secretions. Neck Exam: Soft/supple, full range of motion, no nuchal rigidity Respiratory Exam: Decreased breath sounds to auscultation bilaterally, no wheezes, rales or rhonchi. No tripoding, retractions or increased work of breathing. Speaking in full sentences without difficulties. Cardiovascular Exam: Regular rate and rhythm, no rubs gallops. Radial pulses 2+ intact bilaterally. Gastrointestinal Exam: No pulsations or visible masses, mildly distended. Normoactive bowel sounds.Abdomen is soft, nontender, without rebound/guarding. No peritoneal signs appreciated. Musculoskeletal Exam: No calf tenderness or asymmetry, no lower extremity pitting edema. Moving allextremities at the major joint spaces without difficulty. Neurological Exam: Alert and oriented X3. No focal deficit. Smile symmetric. No dysarthria/dysphagia. Tongue midline when protruded. Hearing appropriate. Following commands without difficulties. Psychiatric exam: stable mood and affect LAB RESULTS (most recent) HEMATOLOGY Lab Results Component Value Date WBC 16.6 (H) 07/14/2024 HGB 10.3 (L) 07/14/2024 HCT 29.7 (L) 07/14/2024 MCV 91.1 07/14/2024 PLT 28 (L) 07/14/2024 CHEMISTRY Lab Results Component Value Date GLUCOSE 271 (H) 07/14/2024 NA 119 (LL) 07/14/2024 K 4.7 07/14/2024 CO2 16 (L) 07/14/2024 CL 90 (L) 07/14/2024 BUN 69 (H) 07/14/2024 CREATININE 2.86 (H) 07/14/2024 EGFR 22 (L) 07/14/2024 CALCIUM 8.5 07/14/2024 MG 3.3 (H) 07/07/2024 PHOS 3.2 06/15/2024 ANIONGAP 13 (H) 07/14/2024 Radiology US Paracentesis w Image Guidance (Results Pending) ASSESSMENT & PLAN LJ on CKD stage III Metabolic acidosis -Bring patient to the hospital, monitor vital signs, ins and outs per floor protocol -Current creatinine 2.86, baseline creatine 1.7-1.9 -Anion gap 13 and CO2 16 -Reports poor urine output -Likely related to advanced cirrhosis with hypoalbuminemia and third spacing resulting in hypoperfusion of the kidneys -Will administer IV albumin -Avoid nephrotoxic medications, renally adjust medications as indicated -Morning labs: CBCd, BMP Hyponatremia -Sodium noted to 119 -Serum osmolality calculated to -Likely secondary to cirrhosis and recent decreased PO intake Leukocytosis -WBC elevated to 16.6, appearing to have increased from previous -Afebrile without tachycardia -Will obtain Chest x-ray, UA and respiratory viral panel Decompensated nonalcoholic cirrhosis Ascites status post paracentesis Portal hypertension Splenomegaly Thrombocytopenia -Paracentesis with interventional radiology removing 5L -Spironolactone and torsemide -Platelets low at 28. Denies signs/symptoms of bleeding Elevated LFT -AST 110/ALT 147, appearing elevated when compared to previous Diabetes mellitus -[id number] ACHS with insulin sliding scale -Hypoglycemic protocol as needed GERD -Continue PPI Hypothyroidism -Continue levothyroxine BPH -Continue tamsulosin Goals of care discussion -Extensive discussion had with patient, and granddaughter. -Patient aware of his poor prognosis and recurrent hospitalizations -Confirmed code status to be transitioned to DNR/DNI, MOLST completed Admission checklist [x] Code status: No CPR/Do Not Intubate [x] VTE Prophylaxis: Sequentials [x] Diet order on admission: Dietary Orders (From admission, onward) Start Ordered 07/14/24 1426 Adult diet [facility]; General, Fluid Restriction; Regular; Fluid Restriction 1200 mL Diet effective now Question Answer Comment Location [facility] Diet Type (req) General Diet Type (req) Fluid Restriction General Diet Regular Fluid Restrictions Fluid Restriction 1200 mL 07/14/24 1426 [x] Medication reconciliation Health Care proxy with Phone number: Daughter Brandy [phone], or granddaughter Corie [phone] Case discussed with Cosigned by Martir Marques MD at 07/14/2024 6:41 PM EDT Associated attestation - Martir Marques MD - 07/14/2024 6:41 PM EDT This is a split/shared visit with UMER Harrell. I personally performed the medical decision making (MDM) for the care of this patient on 07/14/24 as documented below Patient was discussed with advanced practitioner . I personally saw and examined the patient bedside. Chart was reviewed by me personally including relevant history, updates, labs, imaging. Agree with the documentation and plan per MYESHA except mentioned below. 79 years old male who has been admitted to the hospital multiple times recently now [facility] with abnormal blood work including hyponatremia. Hyponatremia-hypervolemic hyponatremia with underlying decompensated hepatic cirrhosis. Monitor on cardiac telemetry. Frequent sodium level check to avoid overcorrection. Notably patient does have a history of chronic hyponatremia at baseline. Hepatic cirrhosis with ascites-patient had paracentesis and 5 L was removed. Continue with diuretics Martir Marques MD 07/14/24 6:36 PM EDT documented in this encounter Consult Notes * Sonido Nunez MD - 07/15/2024 11:09 AM EDT Images from the original note were not included. 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 On routine labshe was noted to have hyponatremia, LJ and leukocytosis. He did not have any specific complaints Denies fever, chills, focal weakness, headache, lightheadedness, dizziness, shortness of breath, cough, chest pain, abdominal pain, nausea, vomiting, diarrhea, constipation, dysuria or hematuria. In the ER was patient is afebrile, heart rate 80, respiratory rate 18, blood pressure 117/61, oxygen saturation 100% on room air. Labs performed revealing WBC 16.6 with H&H 10.3/29.7, platelets 28, neutrophils 12.33, sodium 119 with chloride 90, CO2 16 with anion gap 13, BUN 69 with creatinine 2.86, AST 110 with ALT 147, alkaline phosphatase 939, albumin 2.8. Patient underwent scheduled paracentesis with interventional radiology and care subsidy transferred to medical service for further evaluation and treatment. Renal consult has been requested for help with management of hyponatremia and renal insufficiency SUBJECTIVE Review of Systems General: Denies fever or chills. Lungs: Denies cough, shortness of breath, chest congestion. Heart: Denies chest pain, palpitations, orthopnea, dyspnea on exertion, or edema. Abdomen: Denies change in appetite, nausea, vomiting, diarrhea, or constipation, or abdominal pain. : Denies hesitancy, frequency, burning with urination, or blood in urine. Musculoskeletal: Denies muscle pain or weakness, denies any joint swelling. Skin: Denies skin changes, rashes, or open lesions. Past Medical History: Diagnosis Date Cirrhosis (CMS/HCC) DX:Cirrhosis (HCC) Diabetes (CMS/HCC) DX:Diabetes (HCC) Essential hypertension, benign 07/06/2005 DX:Essential hypertension, benign Gastroesophageal reflux disease without esophagitis 05/06/2024 History of tobacco abuse 2002 DX:History of tobacco abuse; COMMENT: 70 pk years Microscopic hematuria DX:Microscopic hematuria Pulmonary nodule 10/2016 DX:Pulmonary nodule; COMMENT: on LDCT repeat in 3 mo Simple cyst of kidney DX:Simple cyst of kidney Splenomegaly DX:Splenomegaly; COMMENT: on ldct Thoracic aneurysm without mention of rupture 10/2016 DX:Thoracic aneurysm without mention of rupture; COMMENT: sm. 4 cm noted on LDCT Thrombocytopenia (CMS/HCC) DX:Thrombocytopenia (HCC) Past Surgical History: Procedure Laterality Date OTHER SURGICAL HISTORY PROCEDURE: DENIES PREVIOUS SURGERY Social History Socioeconomic History Marital status: Spouse name: Luz Number of children: 2 Years of education: elementary Highest education level: Not on file Occupational History Not on file Tobacco Use Smoking status: Former Smokeless tobacco: Never Substance and Sexual Activity Alcohol use: No Drug use: No Sexual activity: Defer Other Topics Concern Not on file Social History Narrative Not on file Family History Problem Relation Name Age of Onset Other (Other: health history unknown) Mother Other (Other: health history unknown) Father Home Medications aspirin 81 mg EC tablet Take 1 tablet (81 mg total) by mouth 1 (one) time each day. BD Ultra-Fine Short Pen Needle 31 gauge x 5/16 needle Insulin injection, Subcutaneous twice a day folic acid (FOLVITE) 1 mg tablet TAKE 1 TABLET BY MOUTH EVERY DAY gabapentin (NEURONTIN) 100 mg capsule Take 1 capsule (100 mg total) by mouth 2 (two) times a day. glucose blood test strip Use as instructed Blood sugar checks 2-4 times a day insulin aspart (NovoLOG) 100 unit/mL injection Inject 2-14 Units under the skin 3 (three) times a day before meals. -Administer within 5 minutes of a meal. BG 100 mg/dl or less 0 units, 101-150= 2 units, 151-200=6 units, 201-250=8 units, 251-300=10 units, 301-350=12, 351-400=14 units insulin degludec (Tresiba FlexTouch U-200) 200 unit/mL (3 mL) CONCENTRATED injection pen Inject 20 Units under the skin at bedtime. lactulose (CHRONULAC) solution Take 30 mL (20 g total) by mouth 3 (three) times a day for 14 days. midodrine (PROAMATINE) 10 mg tablet Take 1 tablet (10 mg total) by mouth 3 (three) times a day before meals. omeprazole OTC (PriLOSEC OTC) 20 mg EC tablet Take 1 tablet (20 mg total) by mouth 1 (one) time each day. Do not crush, chew, or split. ondansetron (ZOFRAN) 4 mg tablet Take 1 tablet (4 mg total) by mouth every 12 (twelve) hours if needed for nausea or vomiting. rifAXIMin (XIFAXAN) 550 mg tablet Take 1 tablet (550 mg total) by mouth 2 (two) times a day. sucralfate (Carafate) 1 gram tablet Take 1 tablet (1 g total) by mouth 3 (three) times a day with meals. Synthroid 125 mcg tablet Take 1 tablet (125 mcg total) by mouth 1 (one) time each day. tamsulosin (FLOMAX) 0.4 mg 24 hr capsule Take 1 capsule (0.4 mg total) by mouth 1 (one) time each day. Capsules should be taken 30 minutes following the same meal each day. Allergies: No Known Allergies Current Medications: aspirin, 81 mg, oral, Daily folic acid, 1,000 mcg, oral, Daily gabapentin, 100 mg, oral, BID insulin glargine, 15 Units, subcutaneous, Nightly insulin lispro, 2-12 Units, subcutaneous, Before meals & nightly insulin lispro, 4 Units, subcutaneous, TID with meals lactulose, 20 g, oral, TID levothyroxine, 125 mcg, oral, q AM AC midodrine, 10 mg, oral, TID AC pantoprazole, 40 mg, oral, q AM AC rifAXIMin, 550 mg, oral, BID sucralfate, 1 g, oral, TID with meals PRN medications: dextrose 50%, dextrose 50%, dextrose, dextrose, glucagon injection OBJECTIVE Physical Exam: Current Vitals: Blood pressure 116/55, pulse 81, temperature 36.2 ??C (97.1 ??F), temperature source Temporal, resp. rate 16, SpO2 100%. Intake/Output: No intake/output data recorded. General Exam: Age appropriate, awake, calm, cooperative, appearing in no acute distress. Skin Exam: Warm, dry, intact, no diaphoresis. No rashes noted. Capillary refill < 3 seconds. Eye Exam: No scleral icterus HEENT exam: Head is atraumatic, normocephalic. Oral mucosa mildly dry, throat is clear. No trismus,drooling, or difficulty handling secretions. Neck Exam: Soft/supple, full range of motion, no nuchal rigidity Respiratory Exam: Decreased breath sounds to auscultation bilaterally, no wheezes, rales or rhonchi. No tripoding, retractions or increased work of breathing. Speaking in full sentences without difficulties. Cardiovascular Exam: Regular rate and rhythm, no rubs gallops. Radial pulses 2+ intact bilaterally. Gastrointestinal Exam: No pulsations or visible masses, mildly distended. Normoactive bowel sounds.Abdomen is soft, nontender, without rebound/guarding. No peritoneal signs appreciated. Musculoskeletal Exam: No calf tenderness or asymmetry, no lower extremity pitting edema. Moving allextremities at the major joint spaces without difficulty. Neurological Exam: Alert and oriented X3. No focal deficit. Smile symmetric. No dysarthria/dysphagia. Tongue midline when protruded. Hearing appropriate. Following commands without difficulties. Psychiatric exam: stable mood and affect Laboratory Data: Urine No results found for: COLORUA , CLARITYUA , SPECGRAVUA , PHUA , PROTUA , GLUCOSEUA , KETONESUA , BILIRUBINUA , BLOODUA , UROBILINOGUA , NITRITEUA Lab Results Component Value Date MICROALBUR 8.6 06/05/2024 CBC Results from last 7 days Lab Units 07/15/24 0434 07/14/24 0917 07/10/24 0651 WBC AUTO K/mcL 10.7 16.6* 12.1* HEMOGLOBIN g/dL 9.9* 10.3* 9.2* HEMATOCRIT % 28.5* 29.7* 26.9* PLATELETS K/mcL 30* 28* 38* CMP Results from last 7 days Lab Units 07/15/24 0740 07/15/24 0434 07/14/24 1627 07/14/24 0917 07/10/24 0800 07/10/24 0651 SODIUM mmol/L -- 121* -- 119* -- 125* POTASSIUM mmol/L -- 5.1 -- 4.7 -- 5.5 CHLORIDE mmol/L -- 93* -- 90* -- 98 CO2 mmol/L -- 20* -- 16* -- 18* BUN mg/dL -- 66* -- 69* -- 57* CREATININE mg/dL -- 2.29* -- 2.86* -- 1.86* EGFR mL/min/1.73m2 -- 28* -- 22* -- 36* POCT GLUCOSE mg/dL 208* -- < > -- < > -- GLUCOSE mg/dL -- 227* -- 271* -- 196* CALCIUM mg/dL -- 8.7 -- 8.5 -- 8.8 < > = values in this interval not displayed. Anemia MBD Lab Results Component Value Date IRON 56 04/29/2024 TIBC 269 04/29/2024 FERRITIN 84 04/29/2024 Lab Results Component Value Date PTH 40.2 05/09/2024 CALCIUM 8.7 07/15/2024 PHOS 3.2 06/15/2024 ASSESSMENT AND PLAN Acute kidney injury. Acute kidney injury as patient likely secondary renal hypoperfusion in settingof severe liver disease/hypoalbuminemia. Obstruction has been ruled out on this patient 2. 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 Severe hyponatremia. Patient has hypervolemic hyponatremia in the setting of end-stage liver disease with elevated ADH secretion. Patient has acute on chronic hyponatremia. Baseline sodium levels has been ranging around 1 25-1 30. She had episode of multiple hyponatremia issues Patient has hypervolemic hyponatremia. Serum osmolality still not available to comment on the hospital or state Uric acid level and cortisol levels are acceptable 4. Non-anion gap metabolic acidosis is improved 5. Decompensated nonalcoholic cirrhosis with chronic ascites requiring paracentesis 6. Hyponatremia which is chronic and is on midodrine I reviewed the urine studies and his urine sodium is low with low fractional excretion of sodium For now patient needs to be on a strict fluid restriction of 1 L/day Can have a normal salt diet for now and needs low-salt diet long-term as she has chronic ascites Will give 1 dose of urea 30 g today. I would not give more doses of urea given liver failure and elevated BUN We will give 650 mg 1 tablet 3 times daily x 6 doses as sodium is low with acidosis Both the above has been ordered Avoid nephrotoxins Avoid rapid correction of sodium i.e. not more than 6 to 8 mg or 24 hours Long-term this patient has very poor prognosis. Presently patient is DNR/DNI. I discussed with medical team and advised him to talk to the family regarding his palliative care -Avoid nephrotoxins, such as NSAIDs, iodinated contrast, and phosphate enema, as able. -Dose all mediations for appropriate eGFR Thank you again for the consultation on your patient, we will be happy to follow along with you. documented in this encounter Miscellaneous Notes * ED Bed Hold Note - Roseline Ba RN - 07/14/2024 9:00 AM EDT Bed: RD-13 Expected date: 07/14/24 Expected time: 8:57 AM Means of arrival: Comments: Darryl low sodium documented in this encounter Plan of Treatment Upcoming Encounters Date Type Department Care Team (Late st Contact Info) Description 07/21/2024 10:30 AM EDT Appointment [facility] Ultrasound [address] [place] [phone] 08/18/2024 10:30 AM EDT Office Visit Gastroenterology - [place] [address] [facility] 175 [facility] [address] [place] [phone] Marissa Roberts PA 175 [facility] Ricky [address] [place] [id number] 09/08/2024 9:30 AM EDT Office Visit [facility] Hematology Oncology [address] [place] [phone] Stevenson Carson MD [address] [place] [phone] documented as of this encounter Procedures Procedure Name Priority Date/Time Associated Diagnosis Comments POCT GLUCOSE BLOOD Routine 07/17/2024 3: 48 PM EDT POCT GLUCOSE BLOOD Routine 07/17/2024 11 :19 AM EDT POCT GLUCOSE BLOOD Routine 07/17/2024 8: 09 AM EDT CBC WITH AUTO DIFFERENTIAL Routine 07/17/2024 5:38 AM EDT CBC AND DIFFERENTIAL Routine 07/17/2024 5:38 AM EDT PHOSPHORUS Routine 07/17/2024 5:38 AM EDT MAGNESIUM Routine 07/17/2024 5:38 AM EDT BASIC METABOLIC PANEL Routine 07/17/2024 5:38 AM EDT POCT GLUCOSE BLOOD Routine 07/16/2024 7: 57 PM EDT URINALYSIS WITH REFLEX MICROSCOPIC AND CULTURE Routine 07/16/2024 7:01 PM EDT MUNOZ URINE CULTURE TUBE Routine 07/16/2024 7:01 PM EDT URINALYSIS WITH REFLEX MICROSCOPIC AND CULTURE Routine 07/16/2024 7:01 PM EDT CULTURE URINE Routine 07/16/2024 7:01 PM EDT POCT GLUCOSE BLOOD Routine 07/16/2024 4: 06 PM EDT POCT GLUCOSE BLOOD Routine 07/16/2024 11 :12 AM EDT POCT GLUCOSE BLOOD Routine 07/16/2024 7: 48 AM EDT CBC WITH AUTO DIFFERENTIAL Routine 07/16/2024 5:30 AM EDT CBC AND DIFFERENTIAL Routine 07/16/2024 5:30 AM EDT MAGNESIUM Routine 07/16/2024 5:30 AM EDT BASIC METABOLIC PANEL Routine 07/16/2024 5:30 AM EDT POCT GLUCOSE BLOOD Routine 07/15/2024 8: 45 PM EDT SODIUM Routine 07/15/2024 6:20 PM EDT POCT GLUCOSE BLOOD Routine 07/15/2024 3: 20 PM EDT POCT GLUCOSE BLOOD Routine 07/15/2024 11 :21 AM EDT POCT GLUCOSE BLOOD Routine 07/15/2024 7: 40 AM EDT CBC WITH AUTO DIFFERENTIAL Routine 07/15/2024 4:34 AM EDT CBC AND DIFFERENTIAL Routine 07/15/2024 4:34 AM EDT OSMOLALITY STAT Add-on 07/15/2024 4:34 AM EDT COMPREHENSIVE METABOLIC PANEL Routine 07/15/2024 4:34 AM EDT RESPIRATORY VIRUS [...] ECG 12-LEAD STAT 07/14/2024 10:18 AM EDT CBC WITH AUTO DIFFERENTIAL STAT 07/14/2024 9:17 AM EDT ACTIVATED PARTIAL THROMBOPLASTIN TIME STAT 07/14/2024 9:17 AM EDT PROTHROMBIN TIME WITH INR STAT Add-on 07/14/2024 9:17 AM EDT CBC AND DIFFERENTIAL STAT 07/14/2024 9:17 AM EDT AMMONIA STAT 07/14/2024 9:17 AM EDT COMPREHENSIVE METABOLIC PANEL STAT 07/14/2024 9:17 AM EDT documented in this encounter Results * (ABNORMAL) POCT Glucose, blood (07/17/2024 3:48 PM EDT) Glucose POCT 232(H) 70 - 100 mg/dL 07/17/2024 3:[address] [facility] Blood Capillary blood specimen / Unknown 07/17/2024 3:48 PM EDT 07/17/2024 3:54 PM EDT us Gigi Maxwell MD LAB POINT OF C ARE TEST DOCKED DEVICE UNSOLICITED RESULTS Final Result [facility] [address] [place] [address], [place] [phone] * (ABNORMAL) POCT Glucose, blood (07/17/2024 11:19 AM EDT) Glucose POCT 284(H) 70 - 100 mg/dL 07/17/2024 11:[address] [facility] Blood Capillary blood specimen / Unknown 07/17/2024 11:19 AM EDT 07/17/2024 11:22 AM EDT us Gigi Maxwell MD LAB POINT OF C ARE TEST DOCKED DEVICE UNSOLICITED RESULTS Final Result Performing Organization Address City/[facility]/ZIP Co de Phone Number [facility] [address] [place] [address], [place] [phone] * (ABNORMAL) POCT Glucose, blood (07/17/2024 8:09 AM EDT) [facility] Glucose POCT 203(H) 70 - 100 mg/dL 07/17/2024 8:[address] [facility] Blood Capillary blood specimen / Unknown 07/17/2024 8:09 AM EDT 07/17/2024 8:11 AM EDT us Gigi Maxwell MD LAB POINT OF C ARE TEST DOCKED DEVICE UNSOLICITED RESULTS Final Result Performing Organization Address [facility]/ZIP Co de Phone Number [facility] [address] [place] [address], [place] [phone] * (ABNORMAL) CBC auto differential (07/17/2024 5:38 AM EDT) [facility] WBC 13.1(H) 4.8 - 10.8 K/[facility] HEMETOLOGY METHOD 07/17/2024 6:[address] [facility] RBC 3.20(L) 4.50 - 5.50 M/[facility] LAB HEMETOLOGY METHOD 07/17/2024 6:[address] [facility] Hemoglobin 9.9(L) 13.5 - 17.5 g/dL LAB HEMETOLOGY METHOD 07/17/2024 6:[address] [facility] Hematocrit 28.4(L) 42.0 - 54.0 % LAB HEMETOLOGY METHOD 07/17/2024 6:[address] [facility] MCV 90.2 79.0 - 98.0 [place] LAB HEMETOLOGY METHOD 07/17[facility]2024 [facility] MCH 31.4 27.0 - 32.0 pcg LAB HEMETOLOGY METHOD 07/17/2024 6:[address] [facility] MCHC 34.9 32.0 - 37.0 g/dL LAB HEMETOLOGY METHOD 07/17/2024 6:[address] [facility] RDW 16.9(H) 11.0 - 15.0 % LAB HEMETOLOGY METHOD 07/17/2024 6:[address] [facility] Platelets 57(L) 130 - 400 K/mcL LAB HEMETOLOGY METHOD 07/17/2024 6:[address] [facility] Comment:previously verified by slide MPV 12.1(H) 7.0 - 11.0 FL LAB HEMETOLOGY METHOD 07/17/2024 6:[address] [facility] NRBC 0.0 <1.0 % LAB HEMETOLOGY METHOD 07/17/2024 6:[address] [facility] NRBC Absolute 0.00 <0.10 K/mcL LAB HEMETOLOGY METHOD 07/17/2024 6:[address] [facility] Neutrophils Relative 66.2 % LAB HEMETOLOGY METHOD 07/17/2024 6:[address] [facility] Lymphocytes Relative 19.3 % LAB HEMETOLOGY METHOD 07/17/2024 6:[address] [facility] Monocytes Relative 11.1 % LAB HEMETOLOGY METHOD 07/17/2024 6:[address] [facility] Eosinophils Relative 2.0 % LAB HEMETOLOGY METHOD 07/17/2024 6:[address] [facility] Basophils Relative 0.5 % LAB HEMETOLOGY METHOD 07/17/2024 6:[address] [facility] Immature Granulocytes Relative 0.9 % LAB HEMETOLOGY METHOD 07/17/2024 6:[address] [facility] Neutrophils Absolute 8.63(H) 1.50 - 7.00 K/[facility] HEMETOLOGY METHOD 07/17/2024 6:[address] [facility] Lymphocytes Absolute 2.52 1.00 - 5.00 K/[facility] HEMETOLOGY METHOD 07/17/2024 6:[address] [facility] Monocytes Absolute 1.45(H) 0.20 - 1.00 K/[facility] HEMETOLOGY METHOD 07/17/2024 6:[address] [facility] Eosinophils Absolute 0.26 0.00 - 0.50 K/[facility] HEMETOLOGY METHOD 07/17/2024 6:[address] [facility] Basophils Absolute 0.07 0.00 - 0.20 K/[facility] HEMETOLOGY METHOD 07/17/2024 6:[address] [facility] Immature Granulocytes Absolute 0.12(H) 0.00 - 0.03 K/mcL LAB HEMETOLOGY METHOD 07/17/2024 6:[address] [facility] Blood Venous blood specimen / Unknown Venipuncture / Unknown 07/17/2024 5:38 AM EDT 07/17/2024 6:15 AM EDT us Gigi Maxwell MD LAB BLOOD ORDERABLES F inal Result [facility] [address] [place] [address], * Phosphorus (07/17/2024 5:38 AM EDT) Phosphorus 4.3 2.5 - 4.5 mg/dL LAB CHEMISTRY METHOD 07/17/2024 6:[address] [facility] Blood Venous blood specimen / Unknown Venipuncture / Unknown 07/17/2024 5:38 AM EDT 07/17/2024 6:14 AM EDT us Gigi Maxwell MD LAB BLOOD ORDERABLES F inal Result Performing Organization Address City/[facility]/ZIP Co de Phone Number [facility] [address] [place] [address], [place] [phone] * (ABNORMAL) Magnesium (07/17/2024 5:38 AM EDT) Magnesium 2.9(H) 1.9 - 2.6 mg/dL LAB CHEMISTRY METHOD 07/17/2024 6:[address] [facility] Blood Venous blood specimen / Unknown Venipuncture / Unknown 07/17/2024 5:38 AM EDT 07/17/2024 6:14 AM EDT us Gigi Maxwell MD LAB BLOOD ORDERABLES F inal Result Performing Organization Address [facility]/ZIP Co de Phone Number [facility] [address] [place] [address], [place] [phone] * (ABNORMAL) Basic metabolic panel (07/17/2024 5:38 AM EDT) Sodium 125(L) 133 - 145 mmol/L LAB CHEMISTRY METHOD 07/17/2024 6:[address] [facility] Potassium 4.5 3.5 - 5.5 mmol/L LAB CHEMISTRY METHOD 07/17/2024 6:[address] [facility] Chloride 98 96 - 110 mmol/L LAB CHEMISTRY METHOD 07/17/2024 6:[address] [facility] CO2 16(L) 21 - 32 mmol/L LAB CHEMISTRY METHOD 07/17/2024 6:[address] [facility] Anion Gap 11 3 - 11 LAB CHEMISTRY METHOD 07/17/2024 6:[address] [facility] Glucose 214(H) 70 - 100 mg/dL LAB CHEMISTRY METHOD 07/17/2024 6:[address] [facility] BUN 80(H) 5 - 25 mg/dL LAB CHEMISTRY METHOD 07/17/2024 6:[address] [facility] Creatinine 2.07(H) 0.70 - 1.30 mg/dL LAB CHEMISTRY METHOD 07/17/2024 6:[address] [facility] eGFR 32(L) >=60 mL/min/1. 73m2 LAB CHEMISTRY METHOD 07/17/2024 6:[address] [facility] Comment:Calculation based on the??Chronic Kidney Disease Epidemiology Collaboration (CKD-EPI) equation refit??without adjustment for race. BUN/Creatinine Ratio 38.6 LAB CHEMISTRY METHOD 07/17/2024 6:[address] [facility] Calcium 8.4(L) 8.5 - 10.5 mg/dL LAB CHEMISTRY METHOD 07/17/2024 6:[address] [facility] Blood Venous blood specimen / Unknown Venipuncture / Unknown 07/17/2024 5:38 AM EDT 07/17/2024 6:14 AM EDT us Gigi Maxwell MD LAB BLOOD ORDERABLES F inal Result [facility] [address] [place] [address], * (ABNORMAL) POCT Glucose, blood (07/16/2024 7:57 PM EDT) [facility] Glucose POCT 252(H) 70 - 100 mg/dL 07/16/2024 7:[address] [facility] Blood Capillary blood specimen / Unknown 07/16/2024 7:57 PM EDT 07/16/2024 7:59 PM EDT Gigi Maxwell MD LAB POINT OF C ARE TEST DOCKED DEVICE UNSOLICITED RESULTS Final Result Performing Organization Address [facility]/ZIP Co de Phone Number [facility] [address] [place] [address], [place] [phone] * Culture urine (07/16/2024 7:01 PM EDT) Culture, Urine <10,000 CFU/mL gram positive cocci, insignificant count, no further workup 07/18/2024 11:[address] [facility] Urine Urine specimen obtained by clean catch procedure / Unknown Non-blood Collection / Unknown 07/16/2024 7:01 PM EDT 07/16/2024 10:56 PM EDT [facility] LAB MICROBIOLOGY - GENERAL ORDE RABLES Final Result Performing Organization Address [facility] [[email or web address]] Co de Phone Number [facility] [address] [place] [address], [place] [phone] * Munoz urine culture tube (07/16/2024 7:01 PM EDT) Extra Tube Hold for add-ons. 07/17/2024 12:[address] [facility] Comment:Auto resulted. Urine Urine specimen obtained by clean catch procedure / Unknown Non-blood Collection / Unknown 07/16/2024 7:01 PM EDT 07/16/2024 10:05 PM EDT [facility] URINE ORDERABLES Final Resu lt Performing Organization Address [facility]/ZIP Co de Phone Number [facility] [address] [place] [address], [place] [phone] * (ABNORMAL) Urinalysis with reflex microscopic and culture (07/16/2024 7:01 PM EDT) Specific [place] Urine 1.016 1.003 - 1.030 LAB URINALYSIS - AUTOMATED METHOD 07/16/2024 10:[address] [facility] pH, Urine 5.5 5.0 - 8.0 pH LAB URINALYSIS - AUTOMATED METHOD 07/16/2024 10:[address] [facility] Leukocytes, Urine Moderate(A) Negative LAB URINALYSIS - AUTOMATED METHOD 07/16/2024 10:[address] [facility] Nitrite, Urine Negative Negative LAB URINALYSIS - AUTOMATED METHOD 07/16/2024 10:[address] [facility] Protein, Urine 30(A) <=Trace mg/dL LAB URINALYSIS - AUTOMATED METHOD 07/16/2024 10:[address] [facility] Glucose, Urine Negative Negative mg/dL LAB URINALYSIS - AUTOMATED METHOD 07/16/2024 10:[address] [facility] Ketones, Urine Negative Negative mg/dL LAB URINALYSIS - AUTOMATED METHOD 07/16/2024 10:[address] [facility] Urobilinogen , Urine 1.0 0.2 - 1.0 mg/dL LAB URINALYSIS - AUTOMATED METHOD 07/16/2024 10:[address] [facility] Bilirubin, Urine Negative Negative LAB URINALYSIS - AUTOMATED METHOD 07/16/2024 10:[address] [facility] Blood, Urine Large(A) Negative LAB URINALYSIS - AUTOMATED METHOD 07/16/2024 10:[address] [facility] RBC, Urine 4.0 0 - 4 /HPF LAB URINALYSIS - AUTOMATED METHOD 07/16/2024 10:[address] [facility] WBC, Urine 33.2(H) 0 - 4 /HPF LAB URINALYSIS - AUTOMATED METHOD 07/16/2024 10:[address] [facility] Squamous Epithelial, Urine 24 0 - 60 /LPF LAB URINALYSIS - AUTOMATED METHOD 07/16/2024 10:[address] [facility] Bacteria, Urine Negative Negative /HPF LAB URINALYSIS - AUTOMATED METHOD 07/16/2024 10:[address] [facility] Hyaline Casts, Urine 5.2(H) 0 - 3 /LPF LAB URINALYSIS - AUTOMATED METHOD 07/16/2024 10:[address] [facility] Yeast, Urine Present(A) None /HPF LAB URINALYSIS - AUTOMATED METHOD 07/16/2024 10:[address] [facility] Urine Urine specimen obtained by clean catch procedure / Unknown Non-blood Collection / Unknown 07/16/2024 7:01 PM EDT 07/16/2024 10:05 PM EDT Maya OWUSU LAB URINE ORDERABLES Final Resu lt [facility] [address] [place] [address], [place] [phone] * (ABNORMAL) POCT Glucose, blood (07/16/2024 4:06 PM EDT) Glucose POCT 239(H) 70 - 100 mg/dL 07/16/2024 4:[address] [facility] Blood Capillary blood specimen / Unknown 07/16/2024 4:06 PM EDT 07/16/2024 4:09 PM EDT Gigi Maxwell MD LAB POINT OF C ARE TEST DOCKED DEVICE UNSOLICITED RESULTS Final Result Performing Organization Address [facility]/ZIP Co de Phone Number [facility] [address] [place] [address], [place] [phone] * (ABNORMAL) POCT Glucose, blood (07/16/2024 11:12 AM EDT) Glucose POCT 237(H) 70 - 100 mg/dL 07/16/2024 11:[address] [facility] Blood Capillary blood specimen / Unknown 07/16/2024 11:12 AM EDT 07/16/2024 11:14 AM EDT us Gigi Maxwell MD LAB POINT OF ARE TEST DOCKED DEVICE UNSOLICITED RESULTS Final Result [facility] [address] [place] [address], [place] [phone] * (ABNORMAL) POCT Glucose, blood (07/16/2024 7:48 AM EDT) Glucose POCT 184(H) 70 - 100 mg/dL 07/16/2024 7:[address] [facility] Blood Capillary blood specimen / Unknown 07/16/2024 7:48 AM EDT 07/16/2024 7:50 AM EDT us Gigi Maxwell MD LAB POINT OF C ARE TEST DOCKED DEVICE UNSOLICITED RESULTS Final Result [facility] [address] [place] [address], [place] [phone] * (ABNORMAL) CBC auto differential (07/16/2024 5:30 AM EDT) WBC 14.9(H) 4.8 - 10.8 K/[facility] LAB HEMETOLOGY METHOD 07/16/2024 6:[address] [facility] RBC 3.10(L) 4.50 - 5.50 M/[facility] LAB HEMETOLOGY METHOD 07/16/2024 6:[address] [facility] Hemoglobin 9.8(L) 13.5 - 17.5 g/dL LAB HEMETOLOGY METHOD 07/16/2024 6:[address] [facility] Hematocrit 27.8(L) 42.0 - 54.0 % LAB HEMETOLOGY METHOD 07/16/2024 6:[address] [facility] MCV 89.1 79.0 - 98.0 FL LAB HEMETOLOGY METHOD 07/16/2024 6:[address] [facility] MCH 31.4 27.0 - 32.0 pcg LAB HEMETOLOGY METHOD 07/16/2024 6:[address] [facility] MCHC 35.3 32.0 - 37.0 g/dL LAB HEMETOLOGY METHOD 07/16/2024 6:[address] [facility] RDW 17.0(H) 11.0 - 15.0 % LAB HEMETOLOGY METHOD 07/16/2024 6:[address] [facility] Platelets 43(L) 130 - 400 K/mcL LAB HEMETOLOGY METHOD 07/16/2024 6:[address] [facility] Comment:previously verified by slide MPV 11.6(H) 7.0 - 11.0 FL LAB HEMETOLOGY METHOD 07/16/2024 6:[address] [facility] NRBC 0.0 <1.0 % LAB HEMETOLOGY METHOD 07/16/2024 6:[address] [facility] NRBC Absolute 0.00 <0.10 K/mcL LAB HEMETOLOGY METHOD 07/16/2024 6:[address] [facility] Neutrophils Relative 71.9 % LAB HEMETOLOGY METHOD 07/16/2024 6:[address] [facility] Lymphocytes Relative 16.1 % LAB HEMETOLOGY METHOD 07/16/2024 6:[address] [facility] Monocytes Relative 9.4 % LAB HEMETOLOGY METHOD 07/16/2024 6:[address] [facility] Eosinophils Relative 1.3 % LAB HEMETOLOGY METHOD 07/16/2024 6:[address] [facility] Basophils Relative 0.4 % LAB HEMETOLOGY METHOD 07/16/2024 6:[address] [facility] Immature Granulocytes Relative 0.9 % LAB HEMETOLOGY METHOD 07/16/2024 6:[address] [facility] Neutrophils Absolute 10.75(H) 1.50 - 7.00 K/mcL LAB HEMETOLOGY METHOD 07/16/2024 6:[address] [facility] Lymphocytes Absolute 2.40 1.00 - 5.00 K/mcL LAB HEMETOLOGY METHOD 07/16/2024 6:[address] [facility] Monocytes Absolute 1.40(H) 0.20 - 1.00 K/mcL LAB HEMETOLOGY METHOD 07/16/2024 6:[address] [facility] Eosinophils Absolute 0.19 0.00 - 0.50 K/mcL LAB HEMETOLOGY METHOD 07/16/2024 6:[address] [facility] Basophils Absolute 0.06 0.00 - 0.20 K/mcL LAB HEMETOLOGY METHOD 07/16/2024 6:[address] [facility] Immature Granulocytes Absolute 0.13(H) 0.00 - 0.03 K/mcL LAB HEMETOLOGY METHOD 07/16/2024 6:[address] [facility] Blood Venous blood specimen / Unknown Venipuncture / Unknown 07/16/2024 5:30 AM EDT 07/16/2024 6:17 AM EDT Gigi Maxwell MD LAB BLOOD ORDERABLES F inal Result Performing Organization Address City/[facility]/ZIP Co de Phone Number [facility] [address] [place] [address], * (ABNORMAL) Magnesium (07/16/2024 5:30 AM EDT) [facility] Magnesium 3.0(H) 1.9 - 2.6 mg/dL LAB CHEMISTRY METHOD 07/16/2024 7:[address] [facility] Blood Venous blood specimen / Unknown Venipuncture / Unknown 07/16/2024 5:30 AM EDT 07/16/2024 6:17 AM EDT us Gigi Maxwell MD LAB BLOOD ORDERABLES F inal Result Performing Organization Address [facility]/ZIP Co de Phone Number [facility] [address] [place] [address], * (ABNORMAL) Basic metabolic panel (07/16/2024 5:30 AM EDT) [facility] Sodium 124(L) 133 - 145 mmol/L LAB CHE[facility]STRY [facility] Potassium 4.9 3.5 - 5.5 mmol/L LAB CHEMISTRY METHOD 07/16/2024 7:[address] [facility] Chloride 98 96 - 110 mmol/L LAB CHEMISTRY METHOD 07/16/2024 7:[address] [facility] CO2 18(L) 21 - 32 mmol/L LAB CHEMISTRY METHOD 07/16/2024 7:[address] [facility] Anion Gap 8 3 - 11 LAB CHEMISTRY METHOD 07/16/2024 7:[address] [facility] Glucose 183(H) 70 - 100 mg/dL LAB CHEMISTRY METHOD 07/16/2024 7:[address] [facility] BUN 80(H) 5 - 25 mg/dL LAB CHEMISTRY METHOD 07/16/2024 7:[address] [facility] Creatinine 2.16(H) 0.70 - 1.30 mg/dL LAB CHEMISTRY METHOD 07/16/2024 7:[address] [facility] eGFR 30(L) >=60 mL/min/1. 73m2 LAB CHEMISTRY METHOD 07/16/2024 7:[address] [facility] Comment:Calculation based on the??Chronic Kidney Disease Epidemiology Collaboration (CKD-EPI) equation refit??without adjustment for race. BUN/Creatinine Ratio 37.0 LAB CHEMISTRY METHOD 07/16/2024 7:[address] [facility] Calcium 8.8 8.5 - 10.5 mg/dL LAB CHEMISTRY METHOD 07/16/2024 7:[address] [facility] Blood Venous blood specimen / Unknown Venipuncture / Unknown 07/16/2024 5:30 AM EDT 07/16/2024 6:17 AM EDT us Gigi Maxwell MD LAB BLOOD ORDERABLES F inal Result Performing Organization Address City/State/[facility] [[email or web address]] Co de Phone Number [facility] [address] [place] [address], [place] [phone] * (ABNORMAL) POCT Glucose, blood (07/15/2024 8:45 PM EDT) Glucose POCT 275(H) 70 - 100 mg/dL 07/15/2024 8:[address] [facility] Blood Capillary blood specimen / Unknown 07/15/2024 8:45 PM EDT 07/15/2024 8:47 PM EDT us Gigi Maxwell MD LAB POINT OF C ARE TEST DOCKED DEVICE UNSOLICITED RESULTS Final Result [facility] [address] [place] [address], [place] [phone] * (ABNORMAL) Sodium (07/15/2024 6:20 PM EDT) Sodium 125(L) 133 - 145 mmol/L LAB CHEMISTRY METHOD 07/15/2024 7:[address] [facility] Blood Venous blood specimen / Unknown Venipuncture / Unknown 07/15/2024 6:20 PM EDT 07/15/2024 6:52 PM EDT us Gigi Maxwell MD LAB BLOOD ORDERABLES F inal Result Performing Organization Address [facility] [[email or web address]] Co de Phone Number [facility] [address] [place] [address], [place] [phone] * (ABNORMAL) POCT Glucose, blood (07/15/2024 3:20 PM EDT) Glucose POCT 222(H) 70 - 100 mg/dL 07/15/2024 3:[address] [facility] Blood Capillary blood specimen / Unknown 07/15/2024 3:20 PM EDT 07/15/2024 3:21 PM EDT us Gigi Maxwell MD LAB POINT OF C ARE TEST DOCKED DEVICE UNSOLICITED RESULTS Final Result Performing Organization Address [facility]/ZIP Co de Phone Number [facility] [address] [place] [address], [place] [phone] * (ABNORMAL) POCT Glucose, blood (07/15/2024 11:21 AM EDT) Glucose POCT 264(H) 70 - 100 mg/dL 07/15/2024 11:[address] [facility] Blood Capillary blood specimen / Unknown 07/15/2024 11:21 AM EDT 07/15/2024 11:23 AM EDT us Gigi Maxwell MD LAB POINT OF ARE TEST DOCKED DEVICE UNSOLICITED RESULTS Final Result Performing Organization Address [facility] de Phone Number [facility] [address] [place] [address], [place] [phone] * (ABNORMAL) POCT Glucose, blood (07/15/2024 7:40 AM EDT) Glucose POCT 208(H) 70 - 100 mg/dL 07/15/2024 7:[address] [facility] Blood Capillary blood specimen / Unknown 07/15/2024 7:40 AM EDT 07/15/2024 7:45 AM EDT us Gigi Maxwell MD LAB POINT OF C ARE TEST DOCKED DEVICE UNSOLICITED RESULTS Final Result Performing Organization Address [facility] Phone Number [facility] [address] [place] [address], [place] [phone] * Osmolality (07/15/2024 4:34 AM EDT) Osmolality Jerman 292 280 - 300 mOsm/kg LAB CHEMISTRY METHOD 07/15/2024 9:[address] [facility] Blood Venous blood specimen / Unknown Venipuncture / Unknown 07/15/2024 4:34 AM EDT 07/15/2024 6:05 AM EDT us Sonido Nunez MD LAB BLOOD ORDERABLES Final Resu lt Performing Organization Address [facility] [[email or web address]] Co de Phone Number [facility] [address] [place] [address], [place] [phone] * (ABNORMAL) CBC auto differential (07/15/2024 4:34 AM EDT) [facility] WBC 10.7 4.8 - 10.8 K/mcL LAB HEMETOLOGY METHOD 07/15/2024 6:[address] [facility] RBC 3.10(L) 4.50 - 5.50 M/mcL LAB HEMETOLOGY METHOD 07/15/2024 6:[address] [facility] Hemoglobin 9.9(L) 13.5 - 17.5 g/dL LAB HEMETOLOGY METHOD 07/15/2024 6:[address] [facility] Hematocrit 28.5(L) 42.0 - 54.0 % LAB HEMETOLOGY METHOD 07/15/2024 6:[address] [facility] MCV 90.8 79.0 - 98.0 FL LAB HEMETOLOGY METHOD 07/15/2024 6:[address] [facility] MCH 31.5 27.0 - 32.0 pcg LAB HEMETOLOGY METHOD 07/15/2024 6:[address] [facility] MCHC 34.7 32.0 - 37.0 g/dL LAB HEMETOLOGY METHOD 07/15/2024 6:[address] [facility] RDW 16.6(H) 11.0 - 15.0 % LAB HEMETOLOGY METHOD 07/15/2024 6:[address] [facility] Platelets 30(L) 130 - 400 K/mcL LAB HEMETOLOGY METHOD 07/15/2024 6:[address] [facility] Comment:previously verified by slide MPV 12.2(H) 7.0 - 11.0 FL LAB HEMETOLOGY METHOD 07/15/2024 6:[address] [facility] NRBC 0.0 <1.0 % LAB HEMETOLOGY METHOD 07/15/2024 6:[address] [facility] NRBC Absolute 0.00 <0.10 K/mcL LAB HEMETOLOGY METHOD 07/15/2024 6:[address] [facility] Neutrophils Relative 75.7 % LAB HEMETOLOGY METHOD 07/15/2024 6:[address] [facility] Lymphocytes Relative 13.8 % LAB HEMETOLOGY METHOD 07/15/2024 6:[address] [facility] Monocytes Relative 8.4 % LAB HEMETOLOGY METHOD 07/15/2024 6:[address] [facility] Eosinophils Relative 1.1 % LAB HEMETOLOGY METHOD 07/15/2024 6:[address] [facility] Basophils Relative 0.2 % LAB HEMETOLOGY METHOD 07/15/2024 6:[address] [facility] Immature Granulocytes Relative 0.8 % LAB HEMETOLOGY METHOD 07/15/2024 6:[address] [facility] Neutrophils Absolute 8.09(H) 1.50 - 7.00 K/mcL LAB HEMETOLOGY METHOD 07/15/2024 6:[address] [facility] Lymphocytes Absolute 1.48 1.00 - 5.00 K/mcL LAB HEMETOLOGY METHOD 07/15/2024 6:[address] [facility] Monocytes Absolute 0.90 0.20 - 1.00 K/mcL LAB HEMETOLOGY METHOD 07/15/2024 6:[address] [facility] Eosinophils Absolute 0.12 0.00 - 0.50 K/mcL LAB HEMETOLOGY METHOD 07/15/2024 6:[address] [facility] Basophils Absolute 0.02 0.00 - 0.20 K/mcL LAB HEMETOLOGY METHOD 07/15/2024 6:[address] [facility] Immature Granulocytes Absolute 0.09(H) 0.00 - 0.03 K/mcL LAB HEMETOLOGY METHOD 07/15/2024 6:[address] [facility] Blood Venous blood specimen / Unknown Venipuncture / Unknown 07/15/2024 4:34 AM EDT 07/15/2024 6:05 AM EDT us Maya OWUSU LAB BLOOD ORDERABLES Final Resu lt [facility] [address] [place] [address], [place] [phone] * (ABNORMAL) Comprehensive metabolic panel (07/15/2024 4:34 AM EDT) Sodium 121(L) 133 - 145 mmol/L LAB CHEMISTRY METHOD 07/15/2024 7:[address] [facility] Potassium 5.1 3.5 - 5.5 mmol/L LAB CHEMISTRY METHOD 07/15/2024 7:[address] [facility] Chloride 93(L) 96 - 110 mmol/L LAB CHEMISTRY METHOD 07/15/2024 7:[address] [facility] CO2 20(L) 21 - 32 mmol/L LAB CHEMISTRY METHOD 07/15/2024 7:[address] [facility] Anion Gap 8 3 - 11 LAB CHEMISTRY METHOD 07/15/2024 7:[address] [facility] Glucose 227(H) 70 - 100 mg/dL LAB CHEMISTRY METHOD 07/15/2024 7:[address] [facility] BUN 66(H) 5 - 25 mg/dL LAB CHEMISTRY METHOD 07/15/2024 7:[address] [facility] Creatinine 2.29(H) 0.70 - 1.30 mg/dL LAB CHEMISTRY METHOD 07/15/2024 7:[address] [facility] eGFR 28(L) >=60 mL/min/1. 73m2 LAB CHEMISTRY METHOD 07/15/2024 7:[address] [facility] Comment:Calculation based on the??Chronic Kidney Disease Epidemiology Collaboration (CKD-EPI) equation refit??without adjustment for race. BUN/Creatinine Ratio 28.8 LAB CHEMISTRY METHOD 07/15/2024 7:[address] [facility] Calcium 8.7 8.5 - 10.5 mg/dL LAB CHEMISTRY METHOD 07/15/2024 7:[address] [facility] AST (SGOT) 61(H) 10 - 42 unit/L LAB CHEMISTRY METHOD 07/15/2024 7:[address] [facility] ALT (SGPT) 98(H) 10 - 60 unit/L LAB CHEMISTRY METHOD 07/15/2024 7:[address] [facility] Alkaline Phosphatase 711(H) 42 - 121 unit/L LAB CHEMISTRY METHOD 07/15/2024 7:[address] [facility] Total Protein 5.6(L) 6.0 - 8.0 g/dL LAB CHEMISTRY METHOD 07/15/2024 7:[address] [facility] Albumin 3.2 3.2 - 5.0 g/dL LAB CHEMISTRY METHOD 07/15/2024 7:[address] [facility] Total Bilirubin 1.7(H) 0.0 - 1.4 mg/dL LAB CHEMISTRY METHOD 07/15/2024 7:[address] [facility] Blood Venous blood specimen / Unknown Venipuncture / Unknown 07/15/2024 4:34 AM EDT 07/15/2024 6:05 AM EDT us Maya OWUSU LAB BLOOD ORDERABLES Final Resu lt [facility] [address] [place] [address], * Respiratory virus panel molecular study (07/15/2024 2:01 AM EDT) [facility] Adenovirus Detection by PCR Not Detected Not Detected LAB MICROBIOLOGY METHOD 07/15/2024 3:[address] [facility] Influenza A PCR Not Detected Not Detected LAB MICROBIOLOGY METHOD 07/15/2024 3:[address] [facility] Influenza B PCR Not Detected Not Detected LAB MICROBIOLOGY METHOD 07/15/2024 3:[address] [facility] Coronavirus 229E Not Detected Not Detected LAB MICROBIOLOGY METHOD 07/15/2024 3:[address] [facility] Coronavirus HKU1 Not Detected Not Detected LAB MICROBIOLOGY METHOD 07/15/2024 3:[address] [facility] Coronavirus OC43 Not Detected Not Detected LAB MICROBIOLOGY METHOD 07/15/2024 3:[address] [facility] Coronavirus NL63 Not Detected Not Detected LAB MICROBIOLOGY METHOD 07/15/2024 3:[address] [facility] Parainfluenza Virus 1 Not Detected Not Detected LAB MICROBIOLOGY METHOD 07/15/2024 3:[address] [facility] Parainfluenza Virus 2 Not Detected Not Detected LAB MICROBIOLOGY METHOD 07/15/2024 3:[address] [facility] Parainfluenza Virus 3 Not Detected Not Detected LAB MICROBIOLOGY METHOD 07/15/2024 3:[address] [facility] Parainfluenza Virus 4 Not Detected Not Detected LAB MICROBIOLOGY METHOD 07/15/2024 3:[address] [facility] RSV PCR Not Detected Not Detected LAB MICROBIOLOGY METHOD 07/15/2024 3:[address] [facility] Human Metapneumovirus A and B Not Detected Not Detected LAB MICROBIOLOGY METHOD 07/15/2024 3:[address] [facility] Rhinovirus/Entero virus Not Detected Not Detected LAB MICROBIOLOGY METHOD 07/15/2024 3:[address] [facility] Bordetella pertussis Not Detected Not Detected LAB MICROBIOLOGY METHOD 07/15/2024 3:[address] [facility] Bordetella parapertussis Not Detected Not Detected LAB MICROBIOLOGY METHOD 07/15/2024 3:[address] [facility] Mycoplasma pneumo by PCR Not Detected Not Detected LAB MICROBIOLOGY METHOD 07/15/2024 3:[address] [facility] Chlamydia pneumoniae Not Detected Not Detected LAB MICROBIOLOGY METHOD 07/15/2024 3:[address] [facility] SARS COV-2 Not Detected Not Detected LAB MICROBIOLOGY METHOD 07/15/2024 3:[address] [facility] Swab Both anterior nares / Unknown Non-blood Collection / Unknown 07/15/2024 2:01 AM EDT 07/15/2024 2:[address] [facility] - 07/15/2024 3:44 AM EDT Testing was performed using the [employer] Respiratory Pathogen PCR Assay. All results must [...] detection. Maya OWUSU LAB MICROBIOLOGY - GENERAL ORDE ALBIN Final Result [facility] [address] [place] [address], * ECG-Annotated (07/15/2024) Provider Onbase ECG ORDERABLES Final Result * (ABNORMAL) POCT Glucose, blood (07/14/2024 9:01 PM EDT) [facility] Signature Glucose POCT 336(H) 70 - 100 mg/dL 07/14/2024 9:[address] [facility] Blood Capillary blood specimen / Unknown 07/14/2024 9:01 PM EDT 07/14/2024 9:02 PM EDT us Chase Courtney MD LAB POINT OF CARE TE ST DOCKED DEVICE UNSOLICITED RESULTS Final Result Performing Organization Address City/[facility]/ZIP Co de Phone Number [facility] [address] [place] [address], [place] [phone] * (ABNORMAL) POCT Glucose, blood (07/14/2024 7:21 PM EDT) Glucose POCT 326(H) 70 - 100 mg/dL 07/14/2024 7:[address] [facility] Blood Capillary blood specimen / Unknown 07/14/2024 7:21 PM EDT 07/14/2024 7:23 PM EDT us Chase Courtney MD LAB POINT OF CARE TE ST DOCKED DEVICE UNSOLICITED RESULTS Final Result Performing Organization Address [facility]/ZIP Co de Phone Number [facility] [address] [place] [address], [place] [phone] * (ABNORMAL) POCT Glucose, blood (07/14/2024 4:27 PM EDT) Glucose POCT 249(H) 70 - 100 mg/dL 07/14/2024 4:[address] [facility] Blood Capillary blood specimen / Unknown 07/14/2024 4:27 PM EDT 07/14/2024 4:31 PM EDT us Chase Courtney MD LAB POINT OF CARE TE ST DOCKED DEVICE UNSOLICITED RESULTS Final Result Performing Organization Address City/[facility]/ZIP Co de Phone Number [facility] [address] [place] [address], [place] [phone] * XR Chest 1 View (07/14/2024 3:01 PM EDT) Anatomical Region Laterality Modality Body Radiographic Kandis [...] Signed Date: 07/14/2024 15:46 ET Workstation ID: [id number] Transcribed By: Self Edit Transcribed Date: 07/14/2024 [...] Signed Date: 07/14/2024 15:46 ET Workstation ID: [id number] Transcribed By: Self Edit Transcribed Date: 07/14/2024 15:44 ET us Chase Courtney MD IMG XR PROCEDURES Final Result * US Paracentesis w Image Guidance (07/14/2024 12:05 PM EDT) Anatomical Region Laterality Modality Abdomen Ultrasound 07/14/2024 3:20 PM EDT Impressions 07/14/2024 4:38 PM EDT Successful paracentesis of 5 L of ascitic fluid without complications. -------- FINAL REPORT -------- Dictated By: Roxanna Murguia Dictated Date: 07/14/2024 15:20 ET Assigned Physician: Junaid Kuhn Reviewed and Electronically Signed By: Junaid Kuhn Signed Date: 07/14/2024 16:38 ET Workstation ID: [id number] Transcribed By: Self Edit Transcribed Date: 07/14/2024 15:20 ET Resident/PA/LINOTYPIST: Roxanna Murguia Narrative 07/14/2024 4:38 PM EDT [...] Signed Date: 07/14/2024 16:38 ET Workstation ID: [id number] Transcribed By: Self Edit Transcribed Date: 07/14/2024 15:20 ET Resident/PA/LINOTYPIST: Roxanna Murguia us Edi Shipman DO IMG US PROCEDURES Final Res ult * ECG 12 lead (07/14/2024 10:18 AM EDT) Ventricular Rate ECG 78 BPM GEMUSE Atrial Rate 78 BPM GEMUSE P-R Interval 186 ms GEMUSE QRS Duration 96 ms GEMUSE Q-T Interval 370 ms GEMUSE QTc 421 ms GEMUSE P Wave [place] -3 degrees GEMUSE R [place] 19 degrees GEMUSE T [place] 42 degrees GEMUSE ECG Interpretation Sinus rhythm [...] ECG ORDERABLES Final Re sult GEMUSE * Protime-INR (07/14/2024 9:17 AM EDT) Protime 12.4 10.6 - 13.9 sec LAB COAGULATION METHOD 07/14/2024 11:[address] [facility] INR 1.0 LAB COAGULATION METHOD 07/14/2024 11:[address] [facility] Blood Venous blood specimen / Unknown Venipuncture / Unknown 07/14/2024 9:17 AM EDT 07/14/2024 9:40 AM EDT Edi Shipman DO LAB BLOOD ORDERABLES Final Result [facility] [address] [place] [address], * (ABNORMAL) CBC auto differential (07/14/2024 9:17 AM EDT) WBC 16.6(H) 4.8 - 10.8 K/mcL LAB HEMETOLOGY METHOD 07/14/2024 10:[address] [facility] RBC 3.30(L) 4.50 - 5.50 M/mcL LAB HEMETOLOGY METHOD 07/14/2024 10:[address] [facility] Hemoglobin 10.3(L) 13.5 - 17.5 g/dL LAB HEMETOLOGY METHOD 07/14/2024 10:[address] [facility] Hematocrit 29.7(L) 42.0 - 54.0 % LAB HEMETOLOGY METHOD 07/14/2024 10:[address] [facility] MCV 91.1 79.0 - 98.0 FL LAB HEMETOLOGY METHOD 07/14/2024 10:[address] [facility] MCH 31.6 27.0 - 32.0 pcg LAB HEMETOLOGY METHOD 07/14/2024 10:[address] [facility] MCHC 34.7 32.0 - 37.0 g/dL LAB HEMETOLOGY METHOD 07/14/2024 10:[address] [facility] RDW 16.7(H) 11.0 - 15.0 % LAB HEMETOLOGY METHOD 07/14/2024 10:[address] [facility] Platelets 28(L) 130 - 400 K/mcL LAB HEMETOLOGY METHOD 07/14/2024 10:[address] [facility] Comment:previously verified by slide MPV 13.5(H) 7.0 - 11.0 FL LAB HEMETOLOGY METHOD 07/14/2024 10:[address] [facility] NRBC 0.0 <1.0 % LAB HEMETOLOGY METHOD 07/14/2024 10:[address] [facility] NRBC Absolute 0.00 <0.10 K/mcL LAB HEMETOLOGY METHOD 07/14/2024 10:[address] [facility] Neutrophils Relative 74.6 % LAB HEMETOLOGY METHOD 07/14/2024 10:[address] [facility] Lymphocytes Relative 14.7 % LAB HEMETOLOGY METHOD 07/14/2024 10:[address] [facility] Monocytes Relative 8.2 % LAB HEMETOLOGY METHOD 07/14/2024 10:[address] [facility] Eosinophils Relative 1.4 % LAB HEMETOLOGY METHOD 07/14/2024 10:[address] [facility] Basophils Relative 0.3 % LAB HEMETOLOGY METHOD 07/14/2024 10:[address] [facility] Immature Granulocytes Relative 0.8 % LAB HEMETOLOGY METHOD 07/14/2024 10:[address] [facility] Neutrophils Absolute 12.33(H) 1.50 - 7.00 K/mcL LAB HEMETOLOGY METHOD 07/14/2024 10:[address] [facility] Lymphocytes Absolute 2.44 1.00 - 5.00 K/mcL LAB HEMETOLOGY METHOD 07/14/2024 10:[address] [facility] Monocytes Absolute 1.36(H) 0.20 - 1.00 K/mcL LAB HEMETOLOGY METHOD 07/14/2024 10:[address] [facility] Eosinophils Absolute 0.23 0.00 - 0.50 K/[facility] LAB HEMETOLOGY METHOD 07/14/2024 10:[address] [facility] Basophils Absolute 0.05 0.00 - 0.20 K/[facility] HEMETOLOGY METHOD 07/14/2024 10:[address] [facility] Immature Granulocytes Absolute 0.14(H) 0.00 - 0.03 K/[facility] LAB HEMETOLOGY METHOD 07/14/2024 10:[address] [facility] Blood Venous blood specimen / Unknown Venipuncture / Unknown 07/14/2024 9:17 AM EDT 07/14/2024 9:40 AM EDT us Fau[facility] LAB BLOOD ORDERABLES Fin al Result [facility] [address] [place] [address], [place] [phone] * Ammonia (07/14/2024 9:17 AM EDT) Ammonia 17 11 - 35 mcmol/L LAB CHEMISTRY METHOD 07/14/2024 10:[address] [facility] Blood Venous blood specimen / Unknown Venipuncture / Unknown 07/14/2024 9:17 AM EDT 07/14/2024 9:39 AM EDT us Fau[facility] BLOOD ORDERABLES Fin al Result [facility] [address] [place] [address], [place] [phone] * APTT (07/14/2024 9:17 AM EDT) aPTT 31.0 24.1 - 39.3 sec LAB COAGULATION METHOD 07/14/2024 9:[address] [facility] Blood Venous blood specimen / Unknown Venipuncture / Unknown 07/14/2024 9:17 AM EDT 07/14/2024 9:40 AM EDT us [facility] BLOOD ORDERABLES Fin al [facility] [facility] [address] [place] [address], * (ABNORMAL) Comprehensive metabolic panel (07/14/2024 9:17 AM EDT) [facility] Sodium 119(LL) 133 - 145 mmol/L LAB CHEMISTRY METHOD 07/14/2024 10:[address] [facility] Potassium 4.7 3.5 - 5.5 mmol/L LAB CHEMISTRY METHOD 07/14/2024 10:[address] [facility] Chloride 90(L) 96 - 110 mmol/L LAB CHEMISTRY METHOD 07/14/2024 10:[address] [facility] CO2 16(L) 21 - 32 mmol/L LAB CHEMISTRY METHOD 07/14/2024 10:[address] [facility] Anion Gap 13(H) 3 - 11 LAB CHEMISTRY METHOD 07/14/2024 10:[address] [facility] Glucose 271(H) 70 - 100 mg/dL LAB CHEMISTRY METHOD 07/14/2024 10:[address] [facility] BUN 69(H) 5 - 25 mg/dL LAB CHEMISTRY METHOD 07/14/2024 10:[address] [facility] Creatinine 2.86(H) 0.70 - 1.30 mg/dL LAB CHEMISTRY METHOD 07/14/2024 10:[address] [facility] eGFR 22(L) >=60 mL/min/1. 73m2 LAB CHEMISTRY METHOD 07/14/2024 10:[address] [facility] Comment:Calculation based on the??Chronic Kidney Disease Epidemiology Collaboration (CKD-EPI) equation refit??without adjustment for race. BUN/Creatinine Ratio 24.1 LAB CHEMISTRY METHOD 07/14/2024 10:[address] [facility] Calcium 8.5 8.5 - 10.5 mg/dL LAB CHEMISTRY METHOD 07/14/2024 10:[address] [facility] AST (SGOT) 110(H) 10 - 42 unit/L LAB CHEMISTRY METHOD 07/14/2024 10:[address] [facility] ALT (SGPT) 147(H) 10 - 60 unit/L LAB CHEMISTRY METHOD 07/14/2024 10:[address] [facility] Alkaline Phosphatase 939(H) 42 - 121 unit/L LAB CHEMISTRY METHOD 07/14/2024 10:[address] [facility] Total Protein 5.6(L) 6.0 - 8.0 g/dL LAB CHEMISTRY METHOD 07/14/2024 10:[address] [facility] Albumin 2.8(L) 3.2 - 5.0 g/dL LAB CHEMISTRY METHOD 07/14/2024 10:[address] [facility] Total Bilirubin 1.6(H) 0.0 - 1.4 mg/dL LAB CHEMISTRY METHOD 07/14/2024 10:[address] [facility] Blood Venous blood specimen / Unknown Venipuncture / Unknown 07/14/2024 9:17 AM EDT 07/14/2024 9:40 AM EDT Fauzia [facility] LAB BLOOD ORDERABLES Fin al Result [facility] [address] [place] [address], documented in this encounter Visit Diagnoses Diagnosis Hyponatremia- Primary Hyposmolality and/or hyponatremia Other ascites Hyponatremia Hyposmolality and/or hyponatremia Acute renal failure superimposed on chronic kidney disease, unspecified acute renal failure type, unspecified CKD stage (CMS/HCC V24) Other ascites documented in this encounter Admitting Diagnoses Diagnosis Hyponatremia Hyposmolality and/or hyponatremia Other ascites documented in this encounter Administered Medications Inactive Administered Medications - up to 3 most recent administrations Medication Order MAR Action Action Date Dose Rate Site albumin human 25 % infusion 50 g 50 g, intravenous, Once, On Sun07/14/24 at 1408, For 1 dose, FOR HYPOVOLEMIC SHOCK: Infuse 5% Albumin as rapidly as tolerated (500 mL over 1 - 2 hr) or (250 mL over 30 - 60 min), as blood volume approaches normal then infusion rate should not exceed 1 mL/min. Infusing too rapidly may cause vascular overload which may lead to pulmonary edema or cardiac failure. ROUTINE REPLACEMENT: (non-critical) Infuse 5% or 25% Albumin @ 100 mL/hr for routine albumin replacement in non-critical situations. Faster infusion rates are appropriate for hypovolemic shock (see above). ADMINISTRATION NOTE: A 15-micron filter is only required for Buminate; however, filters are NOT required for all other brands (Albuked, Albuminar, Albuminex, AlbuRx, Albutein, Flexbumin, Kedbumin, Plasbumin). Do not exceed 1 mL/minute in patients with normal plasma volume; 3 mL/minute in patients with hypoproteinemia., Indications: hypoalbuminemiaIndications:hypoalbu minemia New Bag 07/14/2024 3:22 PM EDT 50 g aspirin EC tablet 81 mg 81 mg, oral, Daily, First dose on Sun07/15/24 at 0900, Do not crush, chew, or split. Given 07/17/2024 9:49 AM EDT 81 mg Given 07/16/2024 8:59 AM EDT 81 mg Given 07/15/2024 8:39 AM EDT 81 mg cefTRIAXone (ROCEPHIN) 1 g in sterile water 10 mL IV syringe 1 g, intravenous, at 200 mL/hr, Administer over 3 Minutes, Every 24 hours, First dose on Sun07/17/24 at 0930, For 7 days, Do not administer simultaneously with any calcium containing solutions via a Y-site in any patient., Indication: Urinary Tract/Genitourinary Given 07/17/2024 9:56 AM EDT 1 g 200 mL/hr dextrose (D50W) 50% injection 12.5 g 12.5 g, intravenous, Every 15 min PRN, low blood sugar, moderate hypoglycemia *Patient is Unconscious, NPO, unable to swallow: BG 54 - 69 mg/dl*, Starting on Sun07/14/24 at 1428 dextrose (D50W) 50% injection 25 g 25 g, intravenous, Every 15 min PRN, low blood sugar, severe hypoglycemia *Patient is Unconscious, NPO, unable to swallow: BG LESS than 54 mg/dL*, Starting on Sun07/14/24 at 1428 dextrose 15 gram/60 mL oral solution 15 g 15 g, oral, Every 15 min PRN, low blood sugar, hypoglycemia *Patient conscious AND able to drink and swallow safely*, Starting on Sun07/14/24 at 1428 dextrose 15 gram/60 mL oral solution 30 g 30 g, oral, Every 15 min PRN, low blood sugar, hypoglycemia *Patient conscious AND able to drink and swallow safely*, Starting on Sun07/14/24 at 1428 folic acid (FOLVITE) tablet 1,000 mcg 1,000 mcg, oral, Daily, First dose on Sun07/15/24 at 0900 Given 07/17/2024 9:48 AM EDT 1,000 mcg Given 07/16/2024 8:59 AM EDT 1,000 mcg Given 07/15/2024 8:39 AM EDT 1,000 mcg gabapentin (NEURONTIN) capsule 100 mg 100 mg, oral, 2 times daily, First dose on Sun07/14/24 at 2100 Given 07/17/2024 9:48 AM EDT 100 mg Given 07/16/2024 9:23 PM EDT 100 mg Given 07/16/2024 9:00 AM EDT 100 mg Glucagon HCl (rDNA) injection 1 mg 1 mg, intramuscular, Once as needed, low blood sugar, severe hypoglycemia, Starting on Sun07/14/24 at 1428, For 1 dose insulin glargine (LANTUS) injection 15 Units 15 Units, subcutaneous, Nightly, First dose on Sun07/14/24 at 2100, Notify provider: -If patient is currently or will become NPO -If TPN was or will be interrupted or discontinued -For approval to hold long acting insulin Given 07/16/2024 9:24 PM EDT 15 Units Right Upper Abdomen Given 07/15/2024 10:53 PM EDT 15 Units L eft Upper Abdomen Given 07/14/2024 11:45 PM EDT 15 Units R ight Upper Arm (Back) insulin lispro injection 2-12 Units 2-12 Units, subcutaneous, 4 times daily before meals and nightly, First dose on Sun07/14/24 at 1630, Indication: Total Daily Dose (TDD) 40 - 80 units. Correction Scale: Moderate Dose Administer with meal and/or mealtime dose of insulin to correct high blood glucose If mealtime insulin dose not given (e.g. patient NPO or not eating), still administer correction factor for high blood glucose Given 07/17/2024 4:56 PM EDT 4 Units Left Upper Arm (Back ) Given 07/17/2024 11:59 AM EDT 6 Units R ight Upper Arm (Back) Given 07/17/2024 9:50 AM EDT 4 Units Le ft Upper Arm (Back) insulin lispro injection 4 Units 4 Units, subcutaneous, 3 times daily with meals, First dose on Sun07/15/24 at 1200, Mealtime Insulin - Administer with meal --- -Do NOT give if patient NPO or expected to eat LESS than 50% of meal -If pre-meal glucose LESS than OR equal to 70 mg/dL- treat hypoglycemia and notify provider Given 07/17/2024 4:56 PM EDT 4 Units Left Upper Arm (Back ) Given 07/17/2024 12:00 PM EDT 4 Units R ight Upper Arm (Back) Given 07/17/2024 9:49 AM EDT 4 Units Le ft Upper Arm (Back) lactulose (CHRONULAC) solution 20 g 20 g, oral, 3 times daily, First dose on Sun07/14/24 at 2100, For 2 days Given 07/16/2024 1:55 PM EDT 20 g Given 07/16/2024 9:00 AM EDT 20 g Given 07/15/2024 10:07 PM EDT 20 g levothyroxine (SYNTHROID, LEVOTHROID) tablet 125 mcg 125 mcg, oral, Every morning before breakfast, First dose on Sun07/15/24 at 0700, ORAL ROUTE: take on an empty stomach and separate from other medications. ENTERAL TUBE ROUTE: If newly initiated enteral nutrition duration is over 5 days, hold enteral nutrition 1 hour before and after drug administration, per ASPEN guidelines. Given 07/17/2024 6:32 AM ED T 125 mcg Given 07/16/2024 6:04 AM EDT 125 mcg Given 07/15/2024 6:44 AM EDT 125 mcg lidocaine (XYLOCAINE) 1 % injection 5 mL 5 mL, intradermal, Once in imaging, Starting on Sun07/14/24 at 1205, For 1 dose Given 07/14/2024 12:05 PM EDT 5 mL midodrine (PROAMATINE) tablet 10 mg 10 mg, oral, 3 times daily before meals, First dose on Sun07/14/24 at 1830 Given 07/17/2024 4:57 PM EDT 10 mg Given 07/17/2024 12:01 PM EDT 10 mg Given 07/17/2024 6:32 AM EDT 10 mg pantoprazole (PROTONIX) EC tablet 40 mg 40 mg, oral, Every morning before breakfast, First dose on Sun07/15/24 at 0700, Do not crush, chew, or split. Given 07/17/2024 6:32 AM EDT 40 mg Given 07/16/2024 6:04 AM EDT 40 mg Given 07/15/2024 6:44 AM EDT 40 mg rifAXIMin (XIFAXAN) tablet 550 mg 550 mg, oral, 2 times daily, First dose on Sun07/14/24 at 2100, For 99 days, Indication: Other, Specify: cirrhosis Given 07/17/2024 9:49 AM EDT 550 mg Given 07/16/2024 9:23 PM EDT 550 mg Given 07/16/2024 9:00 AM EDT 550 mg sodium bicarbonate tablet 650 mg 650 mg, oral, 3 times daily, First dose on Sun07/15/24 at 1400, For 4 doses Given 07/16/2024 1:55 PM EDT 650 mg Given 07/16/2024 8:59 AM EDT 650 mg Given 07/15/2024 10:06 PM EDT 650 mg sucralfate (CARAFATE) tablet 1 g 1 g, oral, 3 times daily with meals, First dose on Sun07/14/24 at 1830 Given 07/17/2024 4:57 PM EDT 1 g Given 07/17/2024 12:01 PM EDT 1 g Given 07/17/2024 9:48 AM EDT 1 g tamsulosin (FLOMAX) 24 hr capsule 0.4 mg 0.4 mg, oral, Daily, First dose on Sun07/15/24 at 0900, For 1 day, For oral administration: capsules should be swallowed whole (Do not crush, chew, or open). For tube administration: open capsule and administer with water (granules should NOT be crushed). Given 07/15/2024 8:39 AM EDT 0.4 mg urea (URE-NA) packet 30 g 30 g, oral, Once, On Sun07/15/24 at 1145, For 1 dose Given 07/15/2024 2:20 PM EDT 30 g documented in this encounter Discontinued Medications Medication Sig Discontinue Reason Start Date End Da te tamsulosin (FLOMAX) 0.4 mg 24 hr capsule Take 1 capsule (0.4 mg total) by mouth 1 (one) time each day. Capsules should be taken 30 minutes following the same meal each day. 06/15/2024 07/17/2024 lactulose (CHRONULAC) solution Take 30 mL (20 g total) by mouth 3 (three) times a day for 14 days. 07/02/2024 07/17/2024 documented as of this encounter Active and Recently Administered Medications Times are shown in EDT. Scheduled Medication Order 07/15/2024 07/16/202407/17/2024 aspirin EC tablet 81 mg 81 mg, oral, Daily, First dose on Sun07/15/24 at 0900, Do not crush, chew, or split. 0839 (Given - Provider: Trish Baltazar RN) 0859 (Given - Provider: Lluvia Mahoney RN) 0949 (Given - Provider: Nguyen King NP) cefTRIAXone (ROCEPHIN) 1 g in sterile water 10 mL IV syringe 1 g, intravenous, at 200 mL/hr, Administer over 3 Minutes, Every 24 hours, First dose on Sun07/17/24 at 0930, For 7 days, Do not administer simultaneously with any calcium containing solutions via a Y-site in any patient., Indication: Urinary Tract/Genitourinary 0956 (Given - Provider: Nguyen King NP) folic acid (FOLVITE) tablet 1,000 mcg 1,000 mcg, oral, Daily, First dose on Sun07/15/24 at 0900 0839 (Given - Provider: Trish Baltazar RN) 0859 (Given - Provider: Lluvia Mahoney RN) 0948 (Given - Provider: Nguyen King NP) gabapentin (NEURONTIN) capsule 100 mg 100 mg, oral, 2 times daily, First dose on Sun07/14/24 at 2100 0839 (Given - Provider: Trish Baltazar RN)2206 (Given - Provider: Yanique Beach RN - Comment: care) 0900 (Given - Provider: Lluvia Mahoney RN)2122 (Given - Provider: Francesca Pantoja RN) 0948 (Given - Provider: Nguyen King NP) insulin glargine (LANTUS) injection 15 Units 15 Units, subcutaneous, Nightly, First dose on Sun07/14/24 at 2100, Notify provider: -If patient is currently or will become NPO -If TPN was or will be interrupted or discontinued -For approval to hold long acting insulin 2252 (Given - Provider: Yanique Beach RN - Comment: lantus on imc unit had to get brought up) 2123 (Given - Provider: Francesca Pantoja, LORRI) insulin lispro injection 2-12 Units 2-12 Units, subcutaneous, 4 times daily before meals and nightly, First dose on Sun07/14/24 at 1630, Indication: Total Daily Dose (TDD) 40 - 80 units. Correction Scale: Moderate Dose Administer with meal and/or mealtime dose of insulin to correct high blood glucose If mealtime insulin dose not given (e.g. patient NPO or not eating), still administer correction factor for high blood glucose 0840 (Given - Provider: Trish Baltazar RN)1127 (Given - Provider: Trish Baltazar RN)1642 (Given - Provider: Trish Baltazar RN)2206 (Given - Provider: Yanique Beach RN - Comment: care) 0802 (Given - Provider: Lluvia Mahoney RN)1153 (Given - Provider: Lluvia Mahoney RN)1644 (Given - Provider: Lluvia Mahoney RN)2123 (Given - Provider: Francesca Pantoja RN) 0950 (Given - Provider: Nguyen King NP)1159 (Given - Provider: Nguyen King NP)1656 (Given - Provider: Lluvia Mahoney RN) insulin lispro injection 4 Units 4 Units, subcutaneous, 3 times daily with meals, First dose on Sun07/15/24 at 1200, Mealtime Insulin - Administer with meal -Do NOT give if patient NPO or expected to eat LESS than 50% of meal -If pre-meal glucose LESS than OR equal to 70 mg/dL- treat hypoglycemia and notify provider 1127 (Given - Provider: Trish Baltazar RN)1642 (Given - Provider: Trish Baltazar RN) 0801 (Given - Provider: Lluvia Mahoney RN)1152 (Given - Provider: Lluvia Mahoney RN)1643 (Given - Provider: Lluvia Mahoney RN) 0949 (Given - Provider: Nguyen King NP)1200 (Given - Provider: Nguyen King, SIMIN)1656 (Given - Provider: Lluvia Mahoney RN) lactulose (CHRONULAC) solution 20 g (COMPLETED) 20 g, oral, 3 times daily, First dose on Sun07/14/24 at 2100, For 2 days 0839 (Given - Provider: Trish Baltazar RN)1420 (Given - Provider: Trish Baltazar RN)2207 (Given - Provider: Yanique Beach RN - Comment: care) 0900 (Given - Provider: Lluvia Mahoney RN)1355 (Given - Provider: Lluvia Mahoney RN) levothyroxine (SYNTHROID, LEVOTHROID) tablet 125 mcg 125 mcg, oral, Every morning before breakfast, First dose on Sun07/15/24 at 0700, ORAL ROUTE: take on an empty stomach and separate from other medications. ENTERAL TUBE ROUTE: If newly initiated enteral nutrition duration is over 5 days, hold enteral nutrition 1 hour before and after drug administration, per ASPEN guidelines. 0644 (Given - Provider: Emely Dillon RN) 0604 (Given - Provider: Yanique Beach RN) 0632 (Given - Provider: Francesca Pantoja RN) midodrine (PROAMATINE) tablet 10 mg 10 mg, oral, 3 times daily before meals, First dose on Sun07/14/24 at 1830 0644 (Given - Provider: Emely Dillon RN)1127 (Given - Provider: Trish Baltazar RN)1642 (Given - Provider: Trish Baltazar RN) 0801 (Given - Provider: Lluvia Mahoney RN)1153 (Given - Provider: Lluvia Mahoney RN)1644 (Given - Provider: Lluvia Mahoney RN) 0632 (Given - Provider: Francesca Pantoja RN)1201 (Given - Provider: Nguyen King, SIMIN)1657 (Given - Provider: Lluvia Mahoney RN) pantoprazole (PROTONIX) EC tablet 40 mg 40 mg, oral, Every morning before breakfast, First dose on Sun07/15/24 at 0700, Do not crush, chew, or split. 0644 (Given - Provider: Emely Dillon RN) 0604 (Given - Provider: Yanique Beach RN) 0632 (Given - Provider: Francesca Pantoja RN) rifAXIMin (XIFAXAN) tablet 550 mg 550 mg, oral, 2 times daily, First dose on Sun07/14/24 at 2100, For 99 days, Indication: Other, Specify: cirrhosis 0839 (Given - Provider: Trish Baltazar RN)2207 (Given - Provider: Yanique Beach RN - Comment: care) 0900 (Given - Provider: Lluvia Mahoney RN)2123 (Given - Provider: Francesca Pantoja RN) 0949 (Given - Provider: Nguyen King, SIMIN) sodium bicarbonate tablet 650 mg (COMPLETED) 650 mg, oral, 3 times daily, First dose on Sun07/15/24 at 1400, For 4 doses 1420 (Given - Provider: Trish Baltazar RN)2206 (Given - Provider: Yanique Beach RN - Comment: care) 0859 (Given - Provider: Lluvia Mahoney RN)1355 (Given - Provider: Lluvia Mahoney RN) sucralfate (CARAFATE) tablet 1 g 1 g, oral, 3 times daily with meals, First dose on Sun07/14/24 at 1830 0839 (Given - Provider: Trish Baltazar RN)1127 (Given - Provider: Trish Baltazar RN)1641 (Given - Provider: Trish Baltazar RN) 0801 (Given - Provider: Lluvia Mahoney RN)1153 (Given - Provider: Lluvia Mahoney RN)1645 (Given - Provider: Lluvia Mahoney RN) 0948 (Given - Provider: Nguyen King, SIMIN)1201 (Given - Provider: Nguyen King NP)1657 (Given - Provider: Lluvia Mahoney RN) tamsulosin (FLOMAX) 24 hr capsule 0.4 mg (COMPLETED) 0.4 mg, oral, Daily, First dose on Sun07/15/24 at 0900, For 1 day, For oral administration: capsules should be swallowed whole (Do not crush, chew, or open). For tube administration: open capsule and administer with water (granules should NOT be crushed). 0839 (Given - Provider: Trish Baltazar RN) urea (URE-NA) packet 30 g (COMPLETED) 30 g, oral, Once, On Sun07/15/24 at 1145, For 1 dose 1420 (Given - Provider: Trish Baltazar RN) PRN Medication Order 07/15/2024 07/16/2024 07/17/2024 dextrose (D50W) 50% injection 12.5 g 12.5 g, intravenous, Every 15 min PRN, low blood sugar, moderate hypoglycemia *Patient is Unconscious, NPO, unable to swallow: BG 54 - 69 mg/dl*, Starting on Sun07/14/24 at 1428 dextrose (D50W) 50% injection 25 g 25 g, intravenous, Every 15 min PRN, low blood sugar, severe hypoglycemia *Patient is Unconscious, NPO, unable to swallow: BG LESS than 54 mg/dL*, Starting on Sun07/14/24 at 1428 dextrose 15 gram/60 mL oral solution 15 g 15 g, oral, Every 15 min PRN, low blood sugar, hypoglycemia *Patient conscious AND able to drink and swallow safely*, Starting on Sun07/14/24 at 1428 dextrose 15 gram/60 mL oral solution 30 g 30 g, oral, Every 15 min PRN, low blood sugar, hypoglycemia *Patient conscious AND able to drink and swallow safely*, Starting on Sun07/14/24 at 1428 Glucagon HCl (rDNA) injection 1 mg 1 mg, intramuscular, Once as needed, low blood sugar, severe hypoglycemia, Starting on Sun07/14/24 at 1428, For 1 dose documented in this encounter Orders Medications Ordered That Dank ht Not Have Been Administered Count Last Ordered Date First Ordered Date dextrose (D50W) 50% injection 12.5 g 1 10/2024 dextrose (D50W) 50% injection 25 g 1 2024 dextrose 15 gram/60 mL oral solution 15 g 1 07/14/2024 dextrose 15 gram/60 mL oral solution 30 g 1 07/14/2024 Glucagon HCl (rDNA) injection 1 mg 1 2024 Lab Orders Without Results Count Last Ordered D ate First Ordered Date POCT GLUCOSE, BLOOD 13 07/17/2024 07/15/19 Diet Count Last Ordered Date First Orde red Date ADULT DISCHARGE DIET 1 07/17/2024 Nursing Count Last Ordered Date First Orde red Date ACTIVITY 1 07/17/2024 Consult Count Last Ordered Date First Orde red Date IP CONSULT TO NUTRITION SERVICES 1 07/18/19 WOUND CARE INPATIENT FOLLOW-UP 1 07/15/2024 Admission Count Last Ordered Date First Orde red Date ADMIT TO INPATIENT 1 07/15/2024 INITIATE OBSERVATION STATUS 1 07/14/2024 Transfer Count Last Ordered Date First Orde red Date TRANSFER PATIENT TO NEW UNIT 1 07/15/2024 ED TO FLOOR BED REQUEST 1 07/14/2024 Discharge Count Last Ordered Date First Orde red Date DISCHARGE PATIENT 1 07/17/2024 documented in this encounter Additional Health Concerns Infection Onset Date Last Indicated Resolved Time Respiratory Rule-Out 07/14/2024 07/15/2024 025 3:44 AM EDT Assessment Noted Time PHQ-9 Depression Total Score: 5 03/03/20 24 9:45 AM EST documented as of this encounter Care Teams [employer] Relationship Specialty Start Date End Date Michael Kumar MD [address] [place] [address] PCP - General Internal Medicine 09/09/21 documented as of this encounter
--- OUTSIDE RECORDS SUMMARY | 2024-07-20 09:05 | XMS_ITS ---
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
--- OUTSIDE RECORDS SUMMARY | 2024-07-20 09:05 | XMS_ITS | Clinical Summary ---
Author Organization [facility] Address [address] [place] [address] [address] [place] [phone] Phone Care Team Providers Care Cement Contractor Name Role Phone Michael Kumar MD Primary Care Provider Allergies No known active allergies Medications aspirin (ST AJ) 81 MG EC tablet Take 81 mg by mouth in the morning. 05/29/2023 Active bumetanide (BUMEX) 1 MG tablet Take 1 mg by mouth in the morning. 04/18/2024 Active ferrous sulfate 325 (65 Fe) MG tablet Take 1 tablet by mouth 1 (one) time each day Active folic acid (FOLVITE) 1 MG tablet Take 1,000 mcg by mouth in the morning. 05/29/2023 Active gabapentin (NEURONTIN) 100 MG capsule Take 100 mg by mouth in the morning and 100 mg in the evening. 12/26/2022 Active midodrine (PROAMATINE) 10 MG tablet Take 10 mg by mouth in the morning and 10 mg in the evening and 10 mg before bedtime. 05/01/2024 Active simvastatin (ZOCOR) 20 MG tablet Take 1 tablet by mouth every night 10/29/2023 Active Synthroid 125 MCG tablet Take 125 mcg by mouth in the morning. 04/18/2024 Active sucralfate (CARAFATE) 1 g tablet Take 1 g by mouth in the morning and 1 g at noon and 1 g in the evening. 05/06/2024 Active omeprazole OTC (PriLOSEC OTC) 20 MG EC tablet Take 20 mg by mouth in the morning. 05/06/2024 Active Active Problems Problem Noted Date Diagnosed Date Gastro-esophageal reflux disease without esophag itis 05/06/2024 Orthostatic hypotension 05/06/2024 Cirrhosis of liver 04/17/2024 Cyst of liver 03/02/2024 Insulin treated type 2 diabetes mellitus 024 Peripheral vascular disease 05/29/2023 Chronic anemia 08/22/2022 Polyneuropathy 04/18/2022 Acquired hypothyroidism 10/05/2020 Alcoholic cirrhosis of liver without ascites 12/2020 Lesion of liver 08/15/2020 Thrombocytopenia 08/15/2020 Coronary atherosclerosis 10/07/2019 Cyst of kidney 10/07/2019 Splenomegaly 06/11/2017 Stable angina 02/07/2017 Polyneuropathy due to type 2 diabetes mellitus 0 10/06/2015 Neuropathy due to type 2 diabetes mellitus 07/21 Hyperlipidemia 10/29/2009 Benign essential hypertension 07/06/2005 Encounters Date Type Department Care Team Description 06/05/2024 Telephone [facility] [address] [phone] Joseph Correia MD 06/05/2024 Orders Only [facility] [address] [phone] Joseph Correia MD 05/22/2024 Telephone [facility] [address] [phone] Joseph Correia MD 05/08/2024 3:15 PM EST Office Visit [facility] [address] [place] [phone] Joseph Correia MD Other acute kidney failure (HCC) (Primary Dx); Chronic kidney disease, stage 4 (severe) (HCC) from Last 3 Months Social History Tobacco Use Types Packs/Day Years Used Date Smoking Tobacco: Never Assessed Sex and Gender Information Value Date Recorded Sex Assigned at Not on file Legal Sex Male 10:15 AM EST Gender Identity Not on file Sexual Orientation Not on file Last Filed Vital Signs Vital Sign Reading Time Taken Comments Blood Pressure 185/92 05/08/2024 2:36 PM EST Pulse 77 05/08/2024 2:36 PM EST Temperature - - Respiratory Rate - - Oxygen Saturation 97% 05/08/2024 2:36 PM EST Inhaled Oxygen Concentration - - Weight 83.2 kg (183 lb 6.4 oz) 05/08/2024 2:36 P M EST Height 175.3 cm (5' 9 ) 05/08/2024 2:36 PM EST Body Mass Index 27.08 05/08/2024 2:36 PM EST Plan of Treatment Upcoming Encounters Date Type Department Care Team (Late st Contact Info) Description 08/28/2024 2:45 PM EDT Office Visit [facility] [address] [place] [address] Joseph Correia MD [address] [facility] [address] [place] [address] Health Maintenance Due Date Last Done Comments Hepatitis B Vaccine (1 of 3 - Risk 3-dose series) 2004 Diabetes: Ophthalmology Exam 05/02/2024 07/04/2012, 03/22/2011 Diabetes: Pedal Pulse Checked 05/02/2024 Diabetes: Sensory Foot Exam 05/02/2024 Diabetes: Visual Foot Exam 05/02/2024 Diabetes: Hemoglobin A1C 05/15/2024 02/13/2024 Pneumococcal Vaccine: 50+ Years Completed 6, 09/23/2009 Influenza Vaccine Completed 01/30/2024, , 01/11/2022, Additional history exists Procedures Procedure Name Priority Date/Time Associated Diagnosis Comments IMMUNOFIXATION ELECTROPHORESIS Routine 06/05/2024 10:49 AM EST IMMUNOFIXATION INTERPRETATION Routine 06/05/2024 10:49 AM EST CBC WITH AUTO DIFFERENTIAL Routine 06/05/2024 10:49 AM EST URINALYSIS, MICROSCOPIC (HC) Routine 06/05/2024 10:49 AM EST URINE ALBUMIN / CREATININE RATIO Routine 06/05/2024 10:49 AM EST Chronic kidney disease, stage 4 (severe) (HCC) Other acute kidney failure (HCC) PROTEIN / CREATININE RATIO, URINE Routine 06/05/2024 10:49 AM EST Chronic kidney disease, stage 4 (severe) (HCC) Other acute kidney failure (HCC) BASIC METABOLIC PANEL Routine 06/05/2024 10:49 AM EST Chronic kidney disease, stage 4 (severe) (HCC) Other acute kidney failure (HCC) FREE [place] LIGHT CHAINS, QUANT, SERUM Routine 05/09/2024 10:25 AM EST IMMUNOFIXATION INTERPRETATION Routine 05/09/2024 10:25 AM EST IGG, IGA, IGM Routine 05/09/2024 10:25 AM EST CBC WITH AUTO DIFFERENTIAL Routine 05/09/2024 10:25 AM EST URINALYSIS, MICROSCOPIC (HC) Routine 05/09/2024 10:25 AM EST IMMUNOFIXATION ELECTROPHORESIS Routine 05/09/2024 10:25 AM EST Chronic kidney disease, stage 4 (severe) (HCC) UREA NITROGEN, URINE Routine 05/09/2024 10:25 AM EST Chronic kidney disease, stage 4 (severe) (HCC) SODIUM, URINE, RANDOM Routine 05/09/2024 10:25 AM EST Chronic kidney disease, stage 4 (severe) (HCC) CREATININE, URINE, RANDOM Routine 05/09/2024 10:25 AM EST Chronic kidney disease, stage 4 (severe) (HCC) PHOSPHATE ( PHOSPHORUS) Routine 05/09/2024 10:25 AM EST Chronic kidney disease, stage 4 (severe) (HCC) MAGNESIUM Routine 05/09/2024 10:25 AM EST Chronic kidney disease, stage 4 (severe) (HCC) PTH, INTACT Routine 05/09/2024 10:25 AM EST Chronic kidney disease, stage 4 (severe) (HCC) VITAMIN D 25 HYDROXY Routine 05/09/2024 10:25 AM EST Chronic kidney disease, stage 4 (severe) (HCC) URINE ALBUMIN / CREATININE RATIO Routine 05/09/2024 10:25 AM EST Chronic kidney disease, stage 4 (severe) (HCC) PROTEIN / CREATININE RATIO, URINE Routine 05/09/2024 10:25 AM EST Chronic kidney disease, stage 4 (severe) (HCC) from Last 3 Months Results * (ABNORMAL) Urinalysis, Microscopic (06/05/2024 10:49 AM EST) Only the most recent of2 resultswithin the time period is included. RBC, Urine 4.2(H) 0 - 4 /HPF [facility] WBC, Urine 5.0(H) 0 - 4 /HPF [facility] Squamous Epithelial, Urine 43 0 - 60 /LPF [facility] Bacteria, Urine Negative Negative /HPF [facility] Hyaline Casts, UA 4.8(H) 0 - 3 /LPF [facility] 06/05/2024 10:4 9 AM EST 06/05/2024 11:57 AM EST us Joseph Correia MD LAB HISTORICA [id number] RESULTS Final Result [facility] [address] [place] [address] * IMMUNOFIXATION INTERPRETATION (06/05/2024 10:49 AM EST) Only the most recent of2 resultswithin the time period is included. Pathologist Interpretation Reviewed by Sydnie Bar MD [facility] 06/05/2024 10:4 9 AM EST 06/05/2024 1:44 PM EST Joseph Correia MD LAB BLOOD ORDERABLES Final Result [facility] [address] [place] [address] * (ABNORMAL) CBC auto differential (06/05/2024 10:49 AM EST) Only the most recent of2 resultswithin the time period is included. WBC 10.6 4.8 - 10.8 [facility] RBC 3.90(L) 4.50 - 5.50 [facility] Hgb 12.3(L) 13.5 - 17.5 g/dL [facility] Hematocrit 36.9(L) 42.0 - 54.0 % [facility] MCV 93.9 79.0 - 98.0 [facility] MCH 31.3 27.0 - 32.0 pcg [facility] MCHC 33.3 32.0 - 37.0 g/dL [facility] RDW 15.5(H) 11.0 - 15.0 % [facility] Platelets 292 130 - 400 [facility] MPV 10.8 7.0 - 11.0 [facility] nRBC Count 0.0 <1.0 % [facility] NRBC Absolute 0.00 <0.10 [facility] Bands Relative 66.9 % [facility] Lymphocyte Realative Percent 19.6 % [facility] Monocyte Relative Percent 12.5 % [facility] Eosinophil Relative Percent 0.2 % [facility] Basophils Relative Diff 0.3 % [facility] Immature Granulocytes 0.5 % [facility] Neutrophils Absolute 7.09(H) 1.50 - 7.00 [facility] Lymphocytes Absolute 2.08 1.00 - 5.00 [facility] Monocytes Absolute 1.32(H) 0.20 - 1.00 [facility] Eosinophil Absolute 0.02 0.00 - 0.50 [facility] Basophil ABS 0.03 0.00 - 0.20 [facility] Immature Grans (Absolute) 0.05(H) 0.00 - 0.03 [facility] 06/05/2024 10:4 9 AM EST 06/05/2024 11:48 AM EST us Joseph Correia MD LAB BLOOD ORDERABLES Final Result [facility] [address] [place] [address] * Protein, Total, Random Urine w/Creatinine (Protein/Creat Ratio) (06/05/2024 10:49 AM EST) Only the most recent of2 resultswithin the time period is included. Protein, Ur 9 mg/dL [facility] Urine Protein/Creati nine Ratio 0.10 <=0.20 mg/mg creat [facility] Creatinine, Urine 90.0 mg/dL [facility] Urine (Urine, Clean Catch) 06/05/2024 10:49 AM EST 06/05/2024 11:52 AM EST us Joseph Correia MD LAB URINE ORDERABLES Final Result Performing Organization Address [facility] Co de Phone Number [facility] [address] [place] [address] * Urine Albumin / Creatinine Ratio (06/05/2024 10:49 AM EST) Only the most recent of2 resultswithin the time period is included. Creatinine, Urine 90.0 mg/dL [facility] Microalbumin Urine Random 8.6 0.0 - 29.0 mg/L [facility] Microalbumin/Crea tinine Ratio 10 <30 mg/g creat [facility] Urine (Urine, Clean Catch) 06/05/2024 10:49 AM EST 06/05/2024 11:52 AM EST us Joseph Correia MD LAB URINE ORDERABLES Final Result Performing Organization Address [facility] de Phone Number [facility] [address] [place] [address] * Immunofixation electrophoresis (06/05/2024 10:49 AM EST) Only the most recent of2 resultswithin the time period is included. Pathologist [facility] Immunofixation Result, Serum No monoclonal immunoglobulins detected. [facility] 06/05/2024 10:4 9 AM EST 06/05/2024 1:44 PM EST us Joseph Correia MD LAB BLOOD ORDERABLES Final Result Performing Organization Address [facility]/ZIP Co de Phone Number [facility] [address] [place] [address] * (ABNORMAL) Basic Metabolic Panel (06/05/2024 10:49 AM EST) Sodium 125(L) 133 - 145 mmol/L [facility] Potassium 4.6 3.5 - 5.5 mmol/L [facility] Chloride 91(L) 96 - 110 mmol/L [facility] Bicarbonate (CO2) 26 21 - 32 mmol/L [facility] Anion Gap 8 3 - 11 [facility] Glucose 256(H) 70 - 100 mg/dL [facility] BUN 50(H) 5 - 25 mg/dL [facility] Creatinine Serum 1.91(H) 0.70 - 1.30 mg/dL [facility] eGFR 35(L) >=60 mL/min/1. 73m2 [facility] Comment:Calculation based on the?Chronic Kidney Disease Epidemiology Collaboration (CKD-EPI) equation refit?without adjustment for race. BUN/Creatinine Ratio 26.2 [facility] Calcium 8.5 8.5 - 10.5 mg/dL [facility] Blood (Blood, Venous) 06/05/2024 10:49 AM EST 06/05/2024 1:44 PM EST us Joseph Correia MD LAB BLOOD ORDERABLES Final Result [facility] [address] [place] [address] * (ABNORMAL) Free [place] Lambda Light Chain, QN (05/09/2024 10:25 AM EST) Free [place] Lt Chains, S 5.26(H) 0.33 - 1.94 mg/dL [facility] Free Lambda Lt Chains, S 2.75(H) 0.57 - 2.63 mg/dL [facility] [place]/Lambda LC Ratio 1.91(H) 0.26 - 1.65 [facility] Comment: Test performed at [facility], [address], [place], [place] ??[address] ? [phone] Flores Modi MD, PhD - Pumper Gauger Apprentice 05/09/2024 10:2 5 AM EST 05/09/2024 3:11 PM EST us Joseph Correia MD LAB BLOOD ORDERABLES Final Result [facility] [address] [place] [address] * Urea nitrogen, urine (05/09/2024 10:25 AM EST) Urea Nitrogen, Ur 790 mg/dL [facility] Urine (Urine, Clean Catch) 05/09/2024 10:25 AM EST 05/09/2024 11:56 AM EST us Joseph Correia MD LAB URINE ORDERABLES Final Result Performing Organization Address [facility] Co de Phone Number [facility] [address] [place] [address] * Sodium, urine, random (05/09/2024 10:25 AM EST) Sodium, Ur 20 mmol/L [facility] Urine (Urine, Clean Catch) 05/09/2024 10:25 AM EST 05/09/2024 11:56 AM EST us Joseph Correia MD LAB URINE ORDERABLES Final Result Performing Organization Address [facility] Co de Phone Number [facility] [address] [place] [address] * Creatinine, urine, random (05/09/2024 10:25 AM EST) Creatinine, Urine 127.0 mg/dL [facility] Urine (Urine, Clean Catch) 05/09/2024 10:25 AM EST 05/09/2024 11:56 AM EST us Joseph Correia MD LAB URINE ORDERABLES Final Result Performing Organization Address City/[facility]/ZIP Co de Phone Number [facility] [address] [place] [address] * Vitamin D 25 Hydroxy (05/09/2024 10:25 AM EST) Vitamin D, 25-OH, Total 53.9 30.0 - 80.0 ng/mL [facility] Blood (Blood, Venous) 05/09/2024 10:25 AM EST 05/09/2024 11:57 AM EST us Joseph Correia MD LAB BLOOD ORDERABLES Final Result Performing Organization Address [facility] Co de Phone Number [facility] [address] [place] [address] * IgG, IgA, IgM (05/09/2024 10:25 AM EST) IgG 940 549 - 1,584 mg/dL [facility] IgA 285 61 - 348 mg/dL [facility] IgM 109 23 - 259 mg/dL [facility] 05/09/2024 10:2 5 AM EST 05/09/2024 11:57 AM EST us Joseph Correia MD LAB BLOOD ORDERABLES Final Result Performing Organization Address [facility]/ZIP Co de Phone Number [facility] [address] [place] [address] * Phosphorus (05/09/2024 10:25 AM EST) Phosphorus 3.2 2.5 - 4.5 mg/dL [facility] Blood (Blood, Venous) 05/09/2024 10:25 AM EST 05/09/2024 11:57 AM EST Joseph Correia MD LAB BLOOD ORDERABLES Final Result [facility] [address] [place] [address] * PTH, Intact (05/09/2024 10:25 AM EST) PTH 40.2 18.5 - 88.0 pcg/mL [facility] Blood (Blood, Venous) 05/09/2024 10:25 AM EST 05/09/2024 11:57 AM EST Joseph Correia MD LAB BLOOD ORDERABLES Final Result Performing Organization Address City/[facility]/ZIP Co de Phone Number [facility] [address] [place] [address] * Magnesium (05/09/2024 10:25 AM EST) Magnesium 2.1 1.9 - 2.6 mg/dL [facility] Blood (Blood, Venous) 05/09/2024 10:25 AM EST 05/09/2024 11:57 AM EST us Joseph Correia MD LAB BLOOD ORDERABLES Final Result [facility] [address] [place] [address] from Last 3 Months Insurance Medicare Medicaid [place] Care Teams Cement Contractor Relationship Specialty Start Date End Date Michael Kumar MD [address] [place] [address] PCP - [facility] 04/15/24
[2024-07-20 09:28] LABS: SLIDE REVIEW VERIFIED
[2024-07-20 09:33] VITALS: BP 0/0; PULSE 0
--- NOTE | 2024-07-20 09:34 | PC.NURSE ---
patient presented to ED from snf, patient is awake, alert with name call. patient notable lethargy. received aprox 100cc normal saline. patient noted to have dried blood around mouth. patient has bruising to left flank and right lower abd. patient noted to have blanchable healing pressure wound on coxxyc. additional IV access obtained in the right bicep #18, patient blood bank sample obtained, blood bank notified of patient imminent decline. patient vomited aprox 20cc of bright red blood. ED attending started femoral line and pressers started, see MAR for titration. patient decline more hypotensive, attending requested pressers to be maxed. 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 patient covered with blankets for comfort. TOD called 0915 by ED attending. comfort cart and retail store assistant services called for family, belongings at bedside.
[2024-07-20 09:44] LABS: Troponin-I High Sensitivity 232.7 ng/L (<3.5-35.0)
[2024-07-20 09:45] LABS: Alanine Aminotransferase 120 U/L (0-40); Albumin Level 2.2 g/dL (3.5-5.0); Alkaline Phosphatase 671 U/L (39-117); Anion Gap 16 (12-20); Aspartate Amino Transferase 101 U/L (5-37); Bilirubin Direct 0.7 mg/dL (0.0-0.5); Bilirubin Total 1.3 mg/dL (0.0-1.0); Blood Urea Nitrogen 79 mg/dL (9-16); Calcium 7.4 mg/dL (8.4-10.2); Carbon Dioxide 11 mmol/L (22-29); Chloride 102 mmol/L (96-108); Creatinine Clr Calc Pharmacy 27.8; Estimated Glomerular Filt Rate 27; Ethanol < 10 mg/dL; Glucose Random 392 mg/dL (60-115); Lipase 37 U/L (8-78); Magnesium 2.8 mg/dL (1.6-2.6); Potassium 5.2 mmol/L (3.3-5.1); Sodium 124 mmol/L (135-145); Total Protein 4.1 g/dL (6.5-8.0)
--- NOTE | 2024-07-20 09:59 | PC.NURSE ---
patient presented to ED from snf, patient is awake, alert with name call. patient notable lethargy. received aprox 100cc normal saline. patient noted to have dried blood around mouth. patient has bruising to right flank and left lower abd. patient noted to have blanchable healing pressure wound on coccyx. additional IV access obtained in the right bicep #18, patient blood bank sample obtained, blood bank notified of patient imminent decline. patient vomited aprox 20cc of bright red blood. ED attending started femoral line and pressers started, see MAR for titration. patient decline more hypotensive, attending requested pressers to be maxed. 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 patient covered with blankets for comfort. TOD called 0915 by ED attending. comfort cart and dietary aide cook services called for family, belongings at bedside.
--- NOTE | 2024-07-20 10:36 | PC.NURSE ---
patient home is Anatoly Mathew [address] [facility]
--- NOTE | 2024-07-20 13:41 | PC.NURSE ---
patient family brought patient belongings home.
--- NOTE | 2024-07-20 14:12 | HO.SKINPHOTO ---
Location: Category: Stage: Length: Width: Depth: cm Location: Category: Stage: Length: Width: Depth: cm Location: Category: Stage: Length: Width: Depth: cm Location: Category: Stage: Length: Width: Depth: cm Location: Category: Stage: Length: Width: Depth: cm Location: Category: Stage: Length: Width: Depth: cm
--- NOTE | 2024-07-20 14:50 | PC.NURSE ---
pt brought down to [facility] at 1430 with Stella nursing supervisor dyer
== END 2024-07-20 15:16 | disposition expired ==
PROVIDERS: Emergency Provider Emergency Medicine; PCP Internal Medicine
DX: I46.9 Cardiac arrest, cause unspecified (principal); R05.9 Cough, unspecified; K92.0 Hematemesis; K76.9 Liver disease, unspecified; R53.1 Weakness; Z79.899 Other long term (current) drug therapy
CPT/HCPCS: 80048; 80076; 80307; 82947; 83690; 83735; 84484; 85025; 86140; 86850; 86900; 86901; 86920; 87040; 96365; 99283; 99285; P9047